=== PATIENT | female | born 1945 | race Caucasian/White ===

== ENCOUNTER 2017-11-12 05:47 | Inpatient (IN) | payer MEDICARE ==
[~2017-11-12] VITALS: Ht 157.5 cm; Wt 87.5 kg
[~2017-11-12 05:47] MED LIST: ASPI-516 CHEW; ATOR20TA15 PO; CALC1TAB12 PO; CART120C PO; COQ-100C5 PO; D 50CAP2 PO; FURO1TAB62 PO; GABA300C5 PO; GARL100T PO; HYDR-3516 PO; MILK500C2 PO; MULT1TAB46 PO; PANT40TA3 PO; TURM500C7
[2017-11-12] MEDS ORDERED: SODIUM CHLORID 0.9% 500 ML IV PRN (06:30)
[2017-11-12] MEDS ORDERED: METOPROLOL TARTRATE 25 MG TAB PO PRN (06:30)
[2017-11-12] MEDS ORDERED: POVIDONE IODINE 5% (ANTISEPSIS KIT) 4 APPLICATIONS EACH NARE PRN (06:30)
[2017-11-12] MEDS ORDERED: CHLORHEXIDINE GLUCONATE 2 % 1 PACK (2 CLOTHS) TOPICAL PRN (06:30)
[2017-11-12] MEDS ORDERED: LACTATED RINGER'S 1000 ML IV PRN (06:30)
[2017-11-12] MEDS ORDERED: GELFOAM SIZE 100 ONE ×2 (07:12→07:32)
[2017-11-12] MEDS ORDERED: GENTAMICIN SULFATE 80 MG/2 ML VIAL ONE (07:12)
[2017-11-12] MEDS ORDERED: LIDOCAINE 1%/EPINEPHrine 1:100,000 SOLN 50 ML VIAL ONE (07:12)
[2017-11-12] MEDS ORDERED: THROMBIN (TOPICAL) 5,000 UNIT VIAL ONE ×2 (07:12→10:05)
[2017-11-12] MEDS ORDERED: HEPARIN SODIUM - SQ 10,000 UNITS/ML VIAL ONE (07:18)
[2017-11-12] MEDS ORDERED: PROPOFOL 500 MG/50 ML INJ 100 ML ONE ×2 (07:37→15:00)
[2017-11-12] MEDS ORDERED: ACETAMINOPHEN 1000 MG/100 ML 100 ML IV ONE (07:37)
[2017-11-12] MEDS ORDERED: BUPIVACAINE LIPOSOME PF 1.3% 20 ML VIAL ONE (07:46)
[2017-11-12] MEDS ORDERED: BUPIVACAINE HCL PF 0.25% 30 ML VIAL ONE (07:49)
[2017-11-12] MEDS: ceFAZolin 1,000 MG/NS 100 ML IV SCH ×6 (08:08→16:00)
[2017-11-12] MEDS ORDERED: HYDROmorphone HCL PF 2 MG/ML VIAL ONE (08:09)
[2017-11-12] MEDS ORDERED: diphenhydrAMINE HCL 50 MG/ML VIAL ONE (08:12)
[2017-11-12] MEDS ORDERED: fentaNYL CITRATE 250 MCG/5 ML AMP ONE (08:14)
[2017-11-12] MEDS ORDERED: ARTIFICIAL TEARS OPTH OINT 3.5 APPLIC/3.5 GM TUBO ONE (08:45)
[2017-11-12] MEDS ORDERED: SODIUM CHLOR 0.9% 250 ML INJ 250 ML IV ONE (12:00)
[2017-11-12] MEDS ORDERED: PHENYLEPH/NS 1000 MCG/10 ML SYR IV ONE (12:00)
[2017-11-12] MEDS ORDERED: LACTATED RINGER'S 1000 ML INJ 1,000 ML IV ONE (12:00)
[2017-11-12] MEDS ORDERED: PHENYLEPHRINE HCL 10 MG/ML VIAL IV ONE (12:00)
[2017-11-12] MEDS ORDERED: ceFAZolin INJ 1,000 MG VIAL IV ONE (12:00)
[2017-11-12] MEDS ORDERED: GLYCOPYRROLATE 1 MG/5 ML SYRINGE IV PUSH ONE (12:00)
[2017-11-12] MEDS ORDERED: SODIUM CHLORID 0.9% 500 ML INJ 1,000 ML IV ONE (12:00)
[2017-11-12] MEDS ORDERED: ROCURONIUM INJ 50 MG/5 ML SYRINGE IV PUSH ONE (12:00)
[2017-11-12] MEDS ORDERED: ePHEDrine/NS 25 MG/5 ML SYRINGE IV ONE (12:00)
[2017-11-12] MEDS ORDERED: DEXAMETHASONE SOD PHOS 4 MG/ML VIAL IV ONE (12:00)
[2017-11-12] MEDS ORDERED: LIDOCAINE HCL 1% PF 5 ML SYRINGE OTHER ONE (12:00)
[2017-11-12] MEDS ORDERED: ONDANSETRON HCL 4 MG/2 ML VIAL IV ONE (12:00)
[2017-11-12] MEDS ORDERED: NORMOSOL R INJ 3,000 ML IV ONE (12:00)
[2017-11-12] MEDS ORDERED: PROPOFOL 200 MG/20 ML AMP IV ONE (12:00)
--- NOTE | 2017-11-12 13:14 | EKG ---
Date Performed: 11/12/2017 Time Performed: 06:34:40 PTAGE: 72 years EKG: Sinus rhythm NORMAL ECG PREVIOUS TRACING : 07/08/2015 12.10 Compared to prior tracing no significant change DOCTOR: Hany Butts Interpretating Date/Time 11/12/2017 13:12:49
[2017-11-12] MEDS ORDERED: BUPIVACAINE LIPOSOME PF 1.3% 20 ML VIAL INFIL ONE (17:26)
[2017-11-12] MEDS ORDERED: MEPERIDINE HCL 25 MG/ML VIAL ONE (19:35)
--- NOTE | 2017-11-12 19:59 | RADRPT ---
EXAM DATE/TIME: 11/12/2017 09:59 [place] COMPARISON: No previous studies available for comparison. INDICATIONS : T10-L2 fusion in the operating room. MEDICAL HISTORY : Non-responsive SURGICAL HISTORY : Non-responsive ENCOUNTER: Initial ACUITY: 1 day PAIN SCORE: Non-responsive. LOCATION: Bilateral thoracolumbar spine FINDINGS: 5 images were recorded digitally in the operating room using C-arm during placement of multilevel tra nspedicular screws. CONCLUSION: Intraoperative images. Jay Mariscal MD on November 12, 2017 at 19:56 Board Certified Radiologist. This report was verified electronically.
[2017-11-12] MEDS ORDERED: DO NOT ADM ANY ANTICOAGULANT DRUGS PRN (20:15)
[2017-11-12] MEDS ORDERED: *morphine SULFATE 8 MG/ML PERIprocedure ONLY ONE (20:18)
[2017-11-12] MEDS ORDERED: D5-1/2 NS + KCL 20 MEQ INJ 1,000 ML IV SCH (20:19)
[2017-11-12] MEDS ORDERED: NS + KCL 20 MEQ INJ 1,000 ML ONE (20:22)
[2017-11-12] MEDS ORDERED: HYDROmorphone HCL PCA 6 MG/30 ML IV ONE (20:23)
[2017-11-12] MEDS ORDERED: NALOXONE HCL 0.4 MG/ML AMP IV PUSH PRN ×2 (20:30)
[2017-11-12] MEDS ORDERED: ACETAMINOPHEN/HYDROcodone 325 MG/5 MG TAB PO PRN (20:30)
[2017-11-12] MEDS ORDERED: ONDANSETRON HCL 4 MG/2 ML VIAL IV PUSH PRN (20:30)
[2017-11-12] MEDS ORDERED: D5-NS + KCL 20 MEQ INJ 1,000 ML ONE (20:41)
[2017-11-12] MEDS: HYDROmorphone HCL PCA 6 MG/30 ML IV SCH (20:51)
[2017-11-12] MEDS ORDERED: PILL SPLITTER OTHER PRN (21:00)
[2017-11-12] MEDS: GABAPENTIN 300 MG CAP PO SCH (21:00)
[2017-11-12] MEDS: DILTIAZEM-CD 180 MG CAP ER PO SCH (21:00)
[2017-11-12] MEDS ORDERED: CALCIUM/VITAMIN D 250 MG/125 U TAB PO SCH (21:00)
[2017-11-12] MEDS: DOCUSATE SODIUM 100 MG CAP PO SCH (21:00)
[2017-11-12] MEDS: METHOCARBAMOL 500 MG TAB PO PRN (21:18)
--- NOTE | 2017-11-12 21:23 | PD.OP ---
Operative Report Date of Surgery: Nov 12, 2017 Preoperative Diagnosis: (1) Thoracic stenosis (2) Thoracic myelopathy (3) Lumbar degenerative disc disease 1. Severe T11-12 stenosis 2. Thoracic myelopathy 3. L1-2 adjacent level degeneration above previous L2-5 fusion 4. Thoracolumbar acquired sagittal deformity Postoperative Diagnosis: (1) Thoracic stenosis (2) Thoracic myelopathy (3) Lumbar degenerative disc disease 1. Severe T11-12 stenosis 2. Thoracic myelopathy 3. L1-2 adjacent level degeneration above previous L2-5 fusion 4. Thoracolumbar acquired sagittal deformity Procedure: 1. T11 12 decompressive laminectomy, medial facetectomy for spinal cord decompression 2. L1-2 bilateral decompressive semi-hemilaminectomy, Saenz-Guerrier osteotomy 3. L1-2 discectomy, interbody fusion,PEEK cage, lamina autograft bone, demineralized bone and stem cell matrix, cancellus bone chips. 4. Bilateral T10-L2 posterior lateral fusion with lamina autograft, demineralized bone and stem cell matrix, cancellus bone chips 5. Bilateral T10-L3 posterior spinal instrumentation, revision previous L2-3 instrumentation. Anesthesia: Gen. Surgeon: Nolan Francois Wheel Truer(s): Elizabeth Gagnon Operation and Findings: Indications: Severe T11-12 stenosis with signal intensity changes within the cord. L1-2 adjacent level degeneration with stenosis and upper lumbar pain. Acquired thoracolumbar sagittal deformity. This is stage I of a planned two-part procedure with the second stage planned at the L3-4 level for correction of thoracolumbar kyphotic deformity. Findings: Severe T11-12 stenosis with extensive epidural adhesions. L1-2 facet instability with severe degenerative disc disease above prior L2-5 fusion The patient was brought to the operating room and general endotracheal anesthesia induced without difficulty Lines were established per Anesthesia Sequential compression devices were in place The patient was positioned prone on the concentric Delio table with the side bolsters and all extremities appropriately padded Leads for intraoperative neuro monitoring were placed prior to positioning and a baseline study obtained Appropriate timeout procedure was performed with all personnel present and in agreement The thoracic and lumbar region was shaved with clippers and sterilely prepped and draped 1% Xylocaine with epinephrine was used for local infiltration over the incision site which was made at the midline T10-L3 level. The incision was carried sharply down to the thoracic and lumbodorsal fascia which was sharply incised Robbins elevator was used for subperiosteal elevation of paraspinous musculature and fascia away from the lamina and spinous processes of T10 through L2, and the existing rods that the bilateral L2-L3 level were exposed. The deep self-retaining retractor was placed The appropriate levels were verified with intraoperative C-arm The microscope was utilized during the procedure is needed including the T11- T12 and L1-2 decompression. The entry point for the pedicle screws at the bilateral T10-L1 levels were determined by anatomic and radiographic landmarks. The pedicle screw site was prepared with the awl followed by the pedicle finder and the tap. The ball tip probe was used to probe the pedicle screw site to ensure that there was no breakout through the pedicle. The appropriate size pedicle screw was placed at each pedicle screw site with 5.5 x 40 mm screws at the T11 and T12 levels, 4.5 x 35 mm screws at T10, and 4.5 x 40 and 45 mm screws at L1. The metal cutting bur was used to cut the existing hermila between the L3 and L4 pedicle screws. The previous hermila was a larger diameter than the new screws placed at the thoracic region, necessitating removal of the previous L2 and L3 pedicle screws in order to complete the construct. After the existing pedicle screws were removed, they were replaced with 6.5 and 5.5 x 45 mm screws at the L2 level, and I 0.5 x 45 mm screws at L3. Spine wave instrumentation was utilized. The screw placement was verified with intraoperative C-arm and intraoperative neural monitoring and felt to be satisfactory. The TPS drill with a 5 mm bone bur followed by the Kerrison rongeur was used to remove the inferior two thirds of the lamina at the T11 level and the superior third of the lamina at T12 level of the decompression. Hypertrophied ligamentum flavum was elevated away from the thecal sac and exiting nerve roots with the thin ligament dissector and resected with a 15 blade knife and Kerrison rongeur. There there was severe hypertrophy of the ligament and facet at the T11-12 level with severe canal stenosis and extensive adhesions along the thecal sac. The thecal sac and exiting nerve root were freed up from surrounding adhesions with the microdissectors and 15 blade knife and gently retracted medially revealing the underlying disc and annulus. There was no significant ventral compression noted on the thecal sac. Attention was then turned to the L1-2 level. There was significant facet instability noted was significant ligamentum hypertrophy. Due to the kyphotic deformity at the upper lumbar region, it is elected to perform a Saenz-Guerrier osteotomy to aid in achieving some lordosis at this region. The Leksell rongeur was used to remove the inferior aspect of the L1 lamina. The L2 lamina had been removed partially at the time of the previous procedure. Inferior half of the L1 and superior third of the L2 lamina was thinned out with the TPS drill and further removed with the Kerrison rongeur. Hypertrophied ligamentum flavum was elevated away from the thecal sac and resected with a 15 blade knife and Kerrison rongeur. The facet on each side was resected with the Leksell and Kerrison rongeur. The exiting L1 nerve roots were eliminated and preserved. There was moderate posterior osteophyte disc complex and pinching the ventral thecal sac and exiting L2 nerve roots. The thecal sac on the left side was gently retracted and the disc and annulus were incised. Discectomy was performed with the junito and pituitary biopsy forceps. The endplates were cleared of any disc material using the endplate scrapers. The rotating intervertebral spreaders were used to open up the anterior aspect of the disc space. Posterior osteophytic disc complex was impacted with thecal sac with the reverse curette and resected. The mixture of retained cancellus lamina autograft, demineralized bone and stem cell matrix and cancellous bone chips were placed using a funnel at the L1-2 interspace. The expanding 15 lordotic cage was then placed at the L1-2 level. It was planned to expand the lordotic cage up to 12-15 mm anterior height. However once the device was placed, further expansion could not be achieved. The cage was very snug in the interspace and it was elected to perform posterior compression against the existing cage height which was 8 mm anterior. The rods were bent to the appropriate curvature and placed along the T 10-L3 pedicle screws on each side. The reducers were used to obtain some lordosis against the L1-2 lordotic cage using compression across the L1-2 level and reduction against the curved rods. The patient's bone quality was marginal, and excessive reduction was avoided in order to avoid screw pullout. The locking caps were placed and final tightened using the antitorque device and torque wrench. The final construct was checked with intraoperative C-arm and felt to be satisfactory. The region was well irrigated with antibiotic irrigation The posterior lateral structures at the T10-L2 levels were decorticated with the TPS drill The shavings were left in place, to which was added the remaining autograft and allograft bone which was firmly packed in place for the posterior lateral fusion. The 7 mm flat fluted drain was left in place at the operative side and brought out through a incision at the mid thoracic region and secured to the skin with nylon suture and attached to sterile suction bleeding was carefully controlled with the bipolar forceps The closure was performed with 0 Vicryl interrupted for the deep and superficial fascia, with 3-0 Vicryl for the subcutaneous closure and 4-0 Vicryl running subcuticular closure. Dressings sterile Mastisol, Steri-Strips and Primapore was placed The patient was turned into supine position and taken to recovery room in stable condition All counts were correct at the end of the case Estimated blood loss was 400 cc No specimen was sent to pathology Neuro monitoring was stable during the procedure Nolan Francois MD Nov 12, 2017 21:23
[2017-11-12] MEDS: PCA - TOTAL MG DILAUDID DELIVERED PER SHIFT OTHER SCH (22:00)
[2017-11-12 22:49] LABS: AUTOMATED NEUTROPHIL # 8.3 TH/MM3 (1.8-7.7); BASOPHIL % 0.1 % (0.0-2.0); HEMATOCRIT 29.9 % (35.0-46.0); HEMOGLOBIN 9.9 GM/DL (11.6-15.3); LYMPH % 6.9 % (9.0-44.0); LYMPHOCYTE # 0.6 TH/MM3 (1.0-4.8); MEAN CORPUSCULAR HEMOGLOBIN 29.2 PG (27.0-34.0); MEAN CORPUSCULAR HGB CONC 33.2 % (32.0-36.0); MEAN PLATELET VOLUME 7.9 FL (7.0-11.0); MONO % 3.6 % (0.0-8.0); MONOCYTE # 0.3 TH/MM3 (0-0.9); NEUT % 89.4 % (16.0-70.0); PLATELET COUNT 270 TH/MM3 (150-450); RED CELL DISTRIBUTION WIDTH 16.8 % (11.6-17.2); WHITE BLOOD COUNT 9.3 TH/MM3 (4.0-11.0)
[2017-11-12 23:02] LABS: CALCIUM 7.9 MG/DL (8.5-10.1); CREATININE 1.73 MG/DL (0.50-1.00)
[2017-11-13] VITALS (18 sets, daily range): BP systolic 88–114; BP diastolic 51–63; PULSE 50–82; RESP 9–25; TEMP 97–98.3; O2SAT 88–97
[2017-11-13 05:50] LABS: INTERNATIONAL NORMALIZED RATIO 1.1 RATIO; PROTHROMBIN TIME - PATIENT 10.7 SEC (9.8-11.6)
[2017-11-13 05:51] LABS: AUTOMATED NEUTROPHIL # 6.4 TH/MM3 (1.8-7.7); HEMATOCRIT 26.7 % (35.0-46.0); HEMOGLOBIN 8.8 GM/DL (11.6-15.3); LYMPH % 9.8 % (9.0-44.0); LYMPHOCYTE # 0.8 TH/MM3 (1.0-4.8); MEAN CELL VOLUME 88.3 FL (80.0-100.0); MEAN CORPUSCULAR HEMOGLOBIN 29.2 PG (27.0-34.0); MEAN CORPUSCULAR HGB CONC 33.1 % (32.0-36.0); MEAN PLATELET VOLUME 8.5 FL (7.0-11.0); MONO % 7.5 % (0.0-8.0); MONOCYTE # 0.6 TH/MM3 (0-0.9); NEUT % 82.7 % (16.0-70.0); PLATELET COUNT 221 TH/MM3 (150-450); RED BLOOD COUNT 3.02 MIL/MM3 (4.00-5.30); RED CELL DISTRIBUTION WIDTH 16.9 % (11.6-17.2); WHITE BLOOD COUNT 7.8 TH/MM3 (4.0-11.0)
[2017-11-13] MEDS: PCA - TOTAL MG DILAUDID DELIVERED PER SHIFT OTHER SCH ×3 (06:00→22:00)
[2017-11-13] MEDS: KETOROLAC TROMETHAMINE 30 MG/ML (IVP) VIAL IV PUSH SCH ×3 (06:00→23:42)
[2017-11-13 06:09] LABS: BICARBONATE 25.8 MEQ/L (21.0-32.0); CALCIUM 7.9 MG/DL (8.5-10.1); CREATININE 2.03 MG/DL (0.50-1.00)
[2017-11-13] MEDS: PANTOPRAZOLE SOD 40 MG DELAYED RELEASE TAB PO SCH (08:10)
[2017-11-13] MEDS ORDERED: PANTOPRAZOLE SOD 40 MG DELAYED RELEASE TAB PO SCH (09:00)
[2017-11-13] MEDS ORDERED: NON-FORMULARY DRUG (Coenzyme Q10 (Ubidecarenone) (Coq-10 Tr) 1 CAP) PO SCH (09:00)
--- NOTE | 2017-11-13 09:35 | HHI.NSPN ---
(Horacio Rendon) History Chief Complaint: Hurting to the back. (Horacio Rendon) Interval History 11/12: The patient presented to [facility] for a T11-12 decompressive laminectomy, a L1-2 bilateral decompressive semi-hemilaminectomy with discectomy , interbody fusion and PEEK cage, and a bilateral T10-L2 posterior lateral fusion and posterior spinal instrumentation with revision of previous L2-3 instrumentation. Post-operatively she was admitted to the [facility]SC unit for further monitoring and care. 11/13: The patient is seen in rounds this morning with Dr Francois. She is awake and alert and visiting with her . She states that she is hurting to her back but her feet are less numb than they were. (Horacio Rendon) System Review Comments MUSCULOSKELETAL: Hurting to the back. NEUROLOGICAL: Feet are less numb. The undersigned acts as a scribe for the remainder of this note. (Horacio Rendon) Exam Results 11/11/17 11/11/17 11/12/17 11/12/17 11/13/17 11/13/17 06:00 18:00 06:00 18:00 06:00 18:00 Intake Total 6233 ml Output Total 2225 ml Balance 4008 ml Intake Oral 600 ml IV Total 850 ml Autotransfusion 783 ml Other 4000 ml Output Urine Total 1430 ml Stool Total 0 ml Drainage Total 395 ml Estimated Blood Loss 400 ml # Bowel Movements 0 Vital Signs Date Time Temp Pulse Resp B/P (MAP) Pulse Ox O2 Delivery O2 Flow Rate FiO2 11/13/17 08:18 94 Nasal Cannula 3.00 11/13/17 08:00 57 11/13/17 07:00 95 Nasal Cannula 2.00 11/13/17 06:00 97.8 58 10 88/52 (64) 93 11/13/17 06:00 58 11/13/17 05:00 97.8 70 25 112/56 (74) 94 11/13/17 04:00 64 11/13/17 04:00 97.6 64 25 100/51 (67) 94 11/13/17 03:00 97.0 57 10 108/55 (72) 95 11/13/17 02:00 52 11/13/17 02:00 97.3 52 9 112/56 (74) 94 11/13/17 01:00 97.2 50 9 106/59 (75) 94 11/13/17 00:24 96 Nasal Cannula 3.00 11/13/17 00:00 82 11/13/17 00:00 97.0 82 14 100/52 (68) 97 11/12/17 22:00 54 13 102/58 (73) 96 Nasal Cannula 3 11/12/17 21:00 55 11 96/52 (67) 96 Nasal Cannula 3 11/12/17 20:51 12 11/12/17 20:45 53 12 97/53 (68) 94 Nasal Cannula 3 11/12/17 20:30 54 12 95/55 (68) 94 Nasal Cannula 3 11/12/17 20:15 55 12 91/56 (68) 96 Nasal Cannula 3 11/12/17 20:00 54 11 104/55 (71) 96 Nasal Cannula 3 11/12/17 19:45 54 13 95/51 (66) 94 Nasal Cannula 3 11/12/17 19:35 98.2 54 11 159/54 (89) 96 Nasal Cannula 3 11/12/17 06:52 98.6 68 18 141/69 (93) 98 (Horacio Rendon) Physical Examination RESPIRATORY: CTAB. CARDIAC: S1S2 w/regular but slow rate w/o M/G/R. NEUROLOGICAL: Sensation intact to light touch in the upper extremities. Mild decreased sensation distal lower extremities & feet. Motor strength normal to all major flexion & extension muscle groups. (Horacio Rendon) Lab, Micro, Other Results Recent Impressions Thoracolumbar Spine 11/12/17 0000 Signed Impressions: Service Date/Time: Sunday, November 12, 2017 09:59 - CONCLUSION: Intraoperative images. Jay Mariscal MD Laboratory Tests Test 11/12/17 13:38 11/12/17 22:35 11/13/17 05:10 Blood Gas Puncture Site DRAWN IN OR Blood Gas Patient Temperature 98.6 Blood Gas HCO3 23 mmol/L Blood Gas Base Excess -0.6 mmol/L Blood Gas Oxygen Saturation 97 % Arterial Blood pH 7.46 Arterial Blood Partial Pressure CO2 33 mmHg Arterial Blood Partial Pressure O2 174 mmHg Arterial Blood Oxygen Content 13.9 Vol % Arterial Blood Carboxyhemoglobin 1.3 % Arterial Blood Methemoglobin 1.0 % Blood Gas Hemoglobin 9.9 G/DL Oxygen Delivery Device VENTILATOR Blood Gas Inspired Oxygen 60 % White Blood Count 9.3 TH/MM3 7.8 TH/MM3 Red Blood Count 3.40 MIL/MM3 3.02 MIL/MM3 Hemoglobin 9.9 GM/DL 8.8 GM/DL Hematocrit 29.9 % 26.7 % Mean Corpuscular Volume 88.0 FL 88.3 FL Mean Corpuscular Hemoglobin 29.2 PG 29.2 PG Mean Corpuscular Hemoglobin Concent 33.2 % 33.1 % Red Cell Distribution Width 16.8 % 16.9 % Platelet Count 270 TH/MM3 221 TH/MM3 Mean Platelet Volume 7.9 FL 8.5 FL Neutrophils (%) (Auto) 89.4 % 82.7 % Lymphocytes (%) (Auto) 6.9 % 9.8 % Monocytes (%) (Auto) 3.6 % 7.5 % Eosinophils (%) (Auto) 0.0 % 0.0 % Basophils (%) (Auto) 0.1 % 0.0 % Neutrophils # (Auto) 8.3 TH/MM3 6.4 TH/MM3 Lymphocytes # (Auto) 0.6 TH/MM3 0.8 TH/MM3 Monocytes # (Auto) 0.3 TH/MM3 0.6 TH/MM3 Eosinophils # (Auto) 0.0 TH/MM3 0.0 TH/MM3 Basophils # (Auto) 0.0 TH/MM3 0.0 TH/MM3 CBC Comment DIFF FINAL DIFF FINAL Differential Comment Blood Urea Nitrogen 31 MG/DL 36 MG/DL Creatinine 1.73 MG/DL 2.03 MG/DL Random Glucose 179 MG/DL 141 MG/DL Calcium Level 7.9 MG/DL 7.9 MG/DL Sodium Level 139 MEQ/L 139 MEQ/L Potassium Level 5.2 MEQ/L 4.9 MEQ/L Chloride Level 106 MEQ/L 105 MEQ/L Carbon Dioxide Level 26.0 MEQ/L 25.8 MEQ/L Anion Gap 7 MEQ/L 8 MEQ/L Estimat Glomerular Filtration Rate 29 ML/MIN 24 ML/MIN Prothrombin Time 10.7 SEC Prothromb Time International Ratio 1.1 RATIO Activated Partial Thromboplast Time 23.4 SEC (Horacio Rendon) Medical Decision Making Impression and Plan Impression: Preoperative Diagnosis: (1) Thoracic stenosis (2) Thoracic myelopathy (3) Lumbar degenerative disc disease 1. Severe T11-12 stenosis 2. Thoracic myelopathy 3. L1-2 adjacent level degeneration above previous L2-5 fusion 4. Thoracolumbar acquired sagittal deformity POD #1 () s/p: 1. T11 12 decompressive laminectomy, medial facetectomy for spinal cord decompression 2. L1-2 bilateral decompressive semi-hemilaminectomy, Saenz-Guerrier osteotomy 3. L1-2 discectomy, interbody fusion,PEEK cage, lamina autograft bone, demineralized bone and stem cell matrix, cancellus bone chips. 4. Bilateral T10-L2 posterior lateral fusion with lamina autograft, demineralized bone and stem cell matrix, cancellus bone chips 5. Bilateral T10-L3 posterior spinal instrumentation, revision previous L2-3 instrumentation. Postoperative Diagnosis: (1) Thoracic stenosis (2) Thoracic myelopathy (3) Lumbar degenerative disc disease 1. Severe T11-12 stenosis 2. Thoracic myelopathy 3. L1-2 adjacent level degeneration above previous L2-5 fusion 4. Thoracolumbar acquired sagittal deformity Plan: Frequent neuro checks. Mobilise patient w/assistance. TLSO brace when OOB. Keep patient off back. First time up in [facility] to ensure no complications. If patient does well plan to transfer to a regular med/surg floor. CBC & BMP this afternoon. Maintain Hi and monitor urine output. (Horacio Rendon) Attending Statement The exam, history, and the medical decision-making described in the above note were completed with the assistance of the mid-level provider. I reviewed and agree with the findings presented. I attest that I had a [id number] encounter with the patient on the same day, and personally performed and documented my assessment and findings in the medical record. My examination, impression and recommendations for my visit with the patient on 11/13/2017 are scribed as noted above. Presently no significant cardiorespiratory problems. BUN/creatinine are elevated with acute renal insufficiency. Continuing to monitor fluids and electrolytes as well as hemoglobin/hematocrit closely. Begin physical therapy with TLSO brace out of bed. Pain is recently well-controlled with present medications (Nolan Francois MD) Horacio Rendon Nov 13, 2017 09:35 Nolan Francois MD Nov 15, 2017 18:18
[2017-11-13] MEDS: CALCIUM/VITAMIN D 250 MG/125 U TAB PO SCH ×2 (09:48→21:25)
[2017-11-13] MEDS: FUROSEMIDE 20 MG TAB PO SCH (09:48)
[2017-11-13] MEDS: DOCUSATE SODIUM 100 MG CAP PO SCH ×2 (09:48→21:25)
[2017-11-13] MEDS: DILTIAZEM-CD 180 MG CAP ER PO SCH ×2 (09:48→21:25)
[2017-11-13] MEDS: MULTIVITAMINS/MINERALS THERAPEUTIC TAB PO SCH ×2 (09:48→21:25)
[2017-11-13] MEDS: GABAPENTIN 300 MG CAP PO SCH ×2 (09:48→21:25)
[2017-11-13] MEDS ORDERED: FUROSEMIDE 20 MG TAB PO ONE (10:00)
[2017-11-13] MEDS ORDERED: DEXTROSE 50% IN WATER 50 ML VIAL(D50) IV PUSH PRN (13:00)
[2017-11-13] MEDS: FUROSEMIDE 20 MG/2 ML VIAL IV PUSH SCH ×2 (13:00→18:09)
[2017-11-13] MEDS ORDERED: GLUCAGON 1 MG/ML VIAL OTHER PRN (13:00)
[2017-11-13 15:22] LABS: HEMATOCRIT 25.5 % (35.0-46.0); HEMOGLOBIN 8.4 GM/DL (11.6-15.3); MEAN CORPUSCULAR HEMOGLOBIN 29.1 PG (27.0-34.0); MEAN CORPUSCULAR HGB CONC 32.7 % (32.0-36.0); MEAN PLATELET VOLUME 8.6 FL (7.0-11.0); PLATELET COUNT 231 TH/MM3 (150-450); RED BLOOD COUNT 2.87 MIL/MM3 (4.00-5.30); RED CELL DISTRIBUTION WIDTH 16.9 % (11.6-17.2)
[2017-11-13 15:41] LABS: BICARBONATE 23.4 MEQ/L (21.0-32.0); CALCIUM 7.8 MG/DL (8.5-10.1); CREATININE 2.51 MG/DL (0.50-1.00)
[2017-11-13] MEDS: INSULIN NovoLIN REGULAR SUPPLEMENTAL SCALE SQ SCH ×2 (17:00→21:00)
[2017-11-13] MEDS: HYDROmorphone HCL PCA 6 MG/30 ML IV SCH (19:52)
[2017-11-13 20:26] LABS: HEMATOCRIT 23.9 % (35.0-46.0); HEMOGLOBIN 7.9 GM/DL (11.6-15.3); MEAN CELL VOLUME 88.5 FL (80.0-100.0); MEAN CORPUSCULAR HEMOGLOBIN 29.1 PG (27.0-34.0); MEAN CORPUSCULAR HGB CONC 32.9 % (32.0-36.0); MEAN PLATELET VOLUME 8.8 FL (7.0-11.0); PLATELET COUNT 215 TH/MM3 (150-450); RED CELL DISTRIBUTION WIDTH 17.1 % (11.6-17.2); WHITE BLOOD COUNT 9.3 TH/MM3 (4.0-11.0)
[2017-11-14] VITALS (16 sets, daily range): BP systolic 91–140; BP diastolic 50–68; PULSE 41–76; RESP 12–20; TEMP 97.1–98.4; O2SAT 93–98
[2017-11-14 06:31] LABS: BICARBONATE 25.4 MEQ/L (21.0-32.0); CALCIUM 7.9 MG/DL (8.5-10.1); CREATININE 2.37 MG/DL (0.50-1.00)
[2017-11-14] MEDS: KETOROLAC TROMETHAMINE 30 MG/ML (IVP) VIAL IV PUSH SCH (06:47)
[2017-11-14] MEDS: INSULIN NovoLIN REGULAR SUPPLEMENTAL SCALE SQ SCH ×4 (07:47→22:29)
[2017-11-14] MEDS ORDERED: FUROSEMIDE 20 MG/2 ML VIAL IV PUSH SCH (09:00)
[2017-11-14] MEDS: DILTIAZEM-CD 180 MG CAP ER PO SCH (09:00)
[2017-11-14] MEDS: FUROSEMIDE 20 MG TAB PO SCH (09:15)
[2017-11-14] MEDS: MULTIVITAMINS/MINERALS THERAPEUTIC TAB PO SCH ×2 (09:16→22:28)
[2017-11-14] MEDS: CALCIUM/VITAMIN D 250 MG/125 U TAB PO SCH ×2 (09:16→22:28)
[2017-11-14] MEDS: DOCUSATE SODIUM 100 MG CAP PO SCH ×2 (09:16→22:27)
[2017-11-14] MEDS: GABAPENTIN 300 MG CAP PO SCH ×2 (09:16→22:27)
[2017-11-14] MEDS: PANTOPRAZOLE SOD 40 MG DELAYED RELEASE TAB PO SCH (09:16)
--- NOTE | 2017-11-14 09:20 | HHI.NSPN ---
(Horacio Rendon) History Chief Complaint: Sore to the back. (Horacio Rendon) Interval History 11/12: The patient presented to [facility] for a T11-12 decompressive laminectomy, a L1-2 bilateral decompressive semi-hemilaminectomy with discectomy , interbody fusion and PEEK cage, and a bilateral T10-L2 posterior lateral fusion and posterior spinal instrumentation with revision of previous L2-3 instrumentation. Post-operatively she was admitted to the [facility]SC unit for further monitoring and care. 11/13: The patient is seen in rounds this morning with Dr Francois. She is awake and alert and visiting with her . She states that she is hurting to her back but her feet are less numb than they were. 11/14: This morning the patient is awake and alert when seen. She says she is doing good although she has soreness to her back. She denies any pain, numbness , tingling or weakness to the extremities but then qualifies that when examined and says the toes are still numb but better than before surgery. She remains on a COORDINATOR OF HEALTH SERVICES pump for pain control. She was given an extra dose of furosemide for decreased urine output and renal function. (Horacio Rendon) System Review Comments MUSCULOSKELETAL: Sore to the back. NEUROLOGICAL: Toes are still numb but better. (Horaico Rendon) Exam Results 11/12/17 11/12/17 11/13/17 11/13/17 11/14/17 11/14/17 06:00 18:00 06:00 18:00 06:00 18:00 Intake Total 6233 ml 2090 ml Output Total 2225 ml 360 ml Balance 4008 ml 1730 ml Intake Oral 600 ml 600 ml IV Total 850 ml 1490 ml Autotransfusion 783 ml Other 4000 ml Output Urine Total 1430 ml 200 ml Stool Total 0 ml Drainage Total 395 ml 160 ml Estimated Blood Loss 400 ml # Bowel Movements 0 0 Vital Signs Date Time Temp Pulse Resp B/P (MAP) Pulse Ox O2 Delivery O2 Flow Rate FiO2 11/14/17 06:00 52 11/14/17 04:00 97.7 74 18 95/50 (65) 98 11/14/17 04:00 74 11/14/17 02:54 97 11/14/17 02:00 58 11/14/17 00:00 56 11/14/17 00:00 97.6 56 20 97/52 (67) 94 11/13/17 22:00 18 11/13/17 22:00 56 11/13/17 20:00 97.7 58 18 103/53 (70) 88 11/13/17 20:00 94 Room Air 11/13/17 20:00 58 11/13/17 19:52 19 11/13/17 18:00 62 11/13/17 16:00 55 11/13/17 16:00 98.3 55 20 114/57 (76) 93 11/13/17 14:00 56 11/13/17 14:00 20 11/13/17 12:00 60 11/13/17 12:00 98.1 60 20 93/63 (73) 94 11/13/17 11:42 97 11/13/17 10:00 69 11/13/17 08:18 94 Nasal Cannula 3.00 11/13/17 08:00 97.7 58 17 93/63 (73) 95 11/13/17 08:00 57 11/13/17 07:00 95 Nasal Cannula 2.00 11/13/17 06:00 97.8 58 10 88/52 (64) 93 11/13/17 06:00 58 11/13/17 05:00 97.8 70 25 112/56 (74) 94 11/13/17 04:00 64 11/13/17 04:00 97.6 64 25 100/51 (67) 94 11/13/17 03:00 97.0 57 10 108/55 (72) 95 11/13/17 02:00 52 11/13/17 02:00 97.3 52 9 112/56 (74) 94 11/13/17 01:00 97.2 50 9 106/59 (75) 94 11/13/17 00:24 96 Nasal Cannula 3.00 11/13/17 00:00 82 11/13/17 00:00 97.0 82 14 100/52 (68) 97 11/12/17 22:00 54 13 102/58 (73) 96 Nasal Cannula 3 11/12/17 21:00 55 11 96/52 (67) 96 Nasal Cannula 3 11/12/17 20:51 12 11/12/17 20:45 53 12 97/53 (68) 94 Nasal Cannula 3 11/12/17 20:30 54 12 95/55 (68) 94 Nasal Cannula 3 11/12/17 20:15 55 12 91/56 (68) 96 Nasal Cannula 3 11/12/17 20:00 54 11 104/55 (71) 96 Nasal Cannula 3 11/12/17 19:45 54 13 95/51 (66) 94 Nasal Cannula 3 11/12/17 19:35 98.2 54 11 159/54 (89) 96 Nasal Cannula 3 11/12/17 06:52 98.6 68 18 141/69 (93) 98 (Horacio Rendon) Physical Examination GENERAL: Awake & alert in bed, readily interacts, normal affect, no apparent distress. MUSCULOSKELETAL: GARCES w/o difficulty. Extremities NTTP. Thoracolumbar spine mildly TTP. NEUROLOGICAL: AAOx3. Speech clear & appropriate. Follows simple commands w/o difficulty. Sensation to light touch decreased to the toes of both feet, o/w intact to light touch to all extremities. Motor strength 5/5 to all major flexion & extension muscle groups. (Horacio Rendon) Lab, Micro, Other Results Recent Impressions Thoracolumbar Spine 11/12/17 0000 Signed Impressions: Service Date/Time: Sunday, November 12, 2017 09:59 - CONCLUSION: Intraoperative images. Jay Mariscal MD Laboratory Tests Test 11/12/17 13:38 11/12/17 22:35 11/13/17 05:10 11/13/17 14:59 Blood Gas Puncture Site DRAWN IN OR Blood Gas Patient Temperature 98.6 Blood Gas HCO3 23 mmol/L Blood Gas Base Excess -0.6 mmol/L Blood Gas Oxygen Saturation 97 % Arterial Blood pH 7.46 Arterial Blood Partial Pressure CO2 33 mmHg Arterial Blood Partial Pressure O2 174 mmHg Arterial Blood Oxygen Content 13.9 Vol % Arterial Blood Carboxyhemoglobin 1.3 % Arterial Blood Methemoglobin 1.0 % Blood Gas Hemoglobin 9.9 G/DL Oxygen Delivery Device VENTILATOR Blood Gas Inspired Oxygen 60 % White Blood Count 9.3 TH/MM3 7.8 TH/MM3 11.0 TH/MM3 Red Blood Count 3.40 MIL/MM3 3.02 MIL/MM3 2.87 MIL/MM3 Hemoglobin 9.9 GM/DL 8.8 GM/DL 8.4 GM/DL Hematocrit 29.9 % 26.7 % 25.5 % Mean Corpuscular Volume 88.0 FL 88.3 FL 89.0 FL Mean Corpuscular Hemoglobin 29.2 PG 29.2 PG 29.1 PG Mean Corpuscular Hemoglobin Concent 33.2 % 33.1 % 32.7 % Red Cell Distribution Width 16.8 % 16.9 % 16.9 % Platelet Count 270 TH/MM3 221 TH/MM3 231 TH/MM3 Mean Platelet Volume 7.9 FL 8.5 FL 8.6 FL Neutrophils (%) (Auto) 89.4 % 82.7 % Lymphocytes (%) (Auto) 6.9 % 9.8 % Monocytes (%) (Auto) 3.6 % 7.5 % Eosinophils (%) (Auto) 0.0 % 0.0 % Basophils (%) (Auto) 0.1 % 0.0 % Neutrophils # (Auto) 8.3 TH/MM3 6.4 TH/MM3 Lymphocytes # (Auto) 0.6 TH/MM3 0.8 TH/MM3 Monocytes # (Auto) 0.3 TH/MM3 0.6 TH/MM3 Eosinophils # (Auto) 0.0 TH/MM3 0.0 TH/MM3 Basophils # (Auto) 0.0 TH/MM3 0.0 TH/MM3 CBC Comment DIFF FINAL DIFF FINAL Differential Comment Blood Urea Nitrogen 31 MG/DL 36 MG/DL 43 MG/DL Creatinine 1.73 MG/DL 2.03 MG/DL 2.51 MG/DL Random Glucose 179 MG/DL 141 MG/DL 126 MG/DL Calcium Level 7.9 MG/DL 7.9 MG/DL 7.8 MG/DL Sodium Level 139 MEQ/L 139 MEQ/L 135 MEQ/L Potassium Level 5.2 MEQ/L 4.9 MEQ/L 5.0 MEQ/L Chloride Level 106 MEQ/L 105 MEQ/L 103 MEQ/L Carbon Dioxide Level 26.0 MEQ/L 25.8 MEQ/L 23.4 MEQ/L Anion Gap 7 MEQ/L 8 MEQ/L 9 MEQ/L Estimat Glomerular Filtration Rate 29 ML/MIN 24 ML/MIN 19 ML/MIN Prothrombin Time 10.7 SEC Prothromb Time International Ratio 1.1 RATIO Activated Partial Thromboplast Time 23.4 SEC Test 11/13/17 19:17 11/14/17 03:48 White Blood Count 9.3 TH/MM3 Red Blood Count 2.70 MIL/MM3 Hemoglobin 7.9 GM/DL Hematocrit 23.9 % Mean Corpuscular Volume 88.5 FL Mean Corpuscular Hemoglobin 29.1 PG Mean Corpuscular Hemoglobin Concent 32.9 % Red Cell Distribution Width 17.1 % Platelet Count 215 TH/MM3 Mean Platelet Volume 8.8 FL Blood Urea Nitrogen 45 MG/DL Creatinine 2.37 MG/DL Random Glucose 93 MG/DL Calcium Level 7.9 MG/DL Sodium Level 134 MEQ/L Potassium Level 4.3 MEQ/L Chloride Level 101 MEQ/L Carbon Dioxide Level 25.4 MEQ/L Anion Gap 8 MEQ/L Estimat Glomerular Filtration Rate 20 ML/MIN (Horacio Rendon) Medical Decision Making Impression and Plan Impression: Preoperative Diagnosis: (1) Thoracic stenosis (2) Thoracic myelopathy (3) Lumbar degenerative disc disease 1. Severe T11-12 stenosis 2. Thoracic myelopathy 3. L1-2 adjacent level degeneration above previous L2-5 fusion 4. Thoracolumbar acquired sagittal deformity The patient is doing well when seen. Her pain is fairly well controlled. Her myelopathy is improved from before surgery. Reviewed labs for today. Haemoglobin continues to trend down. Mild hyponatremia. Decreased renal function. FRED drain with 160 mL output for the past 24 hours. POD #2 () s/p: 1. T11 12 decompressive laminectomy, medial facetectomy for spinal cord decompression 2. L1-2 bilateral decompressive semi-hemilaminectomy, Saenz-Guerrier osteotomy 3. L1-2 discectomy, interbody fusion,PEEK cage, lamina autograft bone, demineralized bone and stem cell matrix, cancellus bone chips. 4. Bilateral T10-L2 posterior lateral fusion with lamina autograft, demineralized bone and stem cell matrix, cancellus bone chips 5. Bilateral T10-L3 posterior spinal instrumentation, revision previous L2-3 instrumentation. Postoperative Diagnosis: (1) Thoracic stenosis (2) Thoracic myelopathy (3) Lumbar degenerative disc disease 1. Severe T11-12 stenosis 2. Thoracic myelopathy 3. L1-2 adjacent level degeneration above previous L2-5 fusion 4. Thoracolumbar acquired sagittal deformity Plan: Frequent neuro checks. Mobilise patient w/assistance. TLSO brace when OOB. Keep patient off back. Maintain Hi and monitor urine output. Hospitalist consult for medical management. CBC at 1600. ADDENDUM at 1036: Nursing reported that the patient's SBP dropped into the 70s after the patient pushed the CO[employer]ATOR OF HEALTH SERVICES hydromorphone. It was also low manually. The patient was awake and alert per Nursing. When seen the aptient stated that she felt tired. Nursing did have the dressing off the surgical incision due to the amount of drainage on it. She stated that when the patient coughed there would be blood oozing from the mid to lower incision. The dressing was changed approximately 3 hours previously. Nursing reports that one reading will be in the 70s and the next will be in the 110s. SBP 76 mm Hg by automated cuff and 78 mm Hg manually. Will give patient a bolus of 500 mL NS. Nursing does say that the patient also received furosemide 20 mg IV earlier. She has held the patient's diltiazem. Will notify Dr Francois. BET ADDENDUM at 1106: Notified by Nursing that the patient's sats have dropped into the 80s while on the nasal cannula. Respiratory notified and flow to 4L NC. When seen the patient is with mild to moderate respiratory effort. She is diminished bilaterally with scattered intermittent wheezing. Will do stat CXR and give Duoneb treatment. Will also obtain CBC, BMP, PT/INR & aPTT stat. Spoke with Metal Furniture Panel Coverer and will place consult. BET ADDENDUM at 1215: Reviewed stat CXR which demonstrated left lower lobe infiltrate. Spoke with Metal Furniture Panel Coverer who has evaluated patient and initiated treatment for pneumonia. Lab results pending. Will defer medical issues to the Metal Furniture Panel Coverer and continue to follow patient in regards to her surgery. MARGARITA (Horacio Rendon) Attending Statement The exam, history, and the medical decision-making described in the above note were completed with the assistance of the mid-level provider. I reviewed and agree with the findings presented. I attest that I had a [id number] encounter with the patient on the same day, and personally performed and documented my assessment and findings in the medical record. Examination: 14/01/17, patient with intermittent decreased dose to saturation, somewhat labored respirations. Fluctuating blood pressure. Laboratory results reviewed Metal Furniture Panel Coverer consultation obtained with probable pneumonia. Mild, improving postoperative renal insufficiency. Continuing intensive care and checks and vital signs with close monitoring of fluids. Solu-Medrol and Zosyn started by code and test clerk for pneumonia. (Nolan Francois MD) Horacio Rendon Nov 14, 2017 09:20 Nolan Francois MD Nov 15, 2017 18:21
[2017-11-14] MEDS: POTASSIUM CHLORIDE INJ 10 MEQ in SODIUM CHLOR 0.9% 1000 ML INJ 1,000 ML IV SCH (09:24)
[2017-11-14] MEDS ORDERED: SODIUM CHLORID 0.9% 500 ML INJ 500 ML IV STA (10:50)
[2017-11-14] MEDS ORDERED: RESP: ALBUTEROL 2.5 MG/IPRATROPIUM 0.5 MG NEB (SCH) NEB ONE (11:30)
--- NOTE | 2017-11-14 11:30 | RADRPT ---
EXAM DATE/TIME: 11/14/2017 11:17 [place] COMPARISON: No previous studies available for comparison. INDICATIONS : Dyspnea MEDICAL HISTORY : None. SURGICAL HISTORY : None. ENCOUNTER: Initial ACUITY: 3 days PAIN SCORE: Non-responsive. LOCATION: Bilateral chest FINDINGS: A single view of the chest demonstrates the lungs to be symmetrically aerated except for an elevated right hemidiaphragm. There is some asymmetry with some infiltrate left lung base could be small area of pneumonia. Patient's had previous thoracic spine fixation. Upper lungs are clear. No pneumothorax. The cardiomediastinal contours are unremarkable. Osseous structures are intact. CONCLUSION: Question of small infiltrate left lung base. Tenzin Walters MD on November 14, 2017 at 11:28 Board Certified Radiologist. This report was verified electronically.
[2017-11-14] MEDS ORDERED: RESP: ALBUTEROL 2.5 MG/IPRATROPIUM 0.5 MG NEB (PRN) NEB (12:00)
[2017-11-14] MEDS ORDERED: PHENYLEPHRINE INJ 40 MG in DEXTROSE 5% IN WATE 500 ML INJ 496 ML IV PRN ×2 (12:00)
[2017-11-14] MEDS ORDERED: TERBUTALINE INJ 1 MG/ML AMP SQ PRN ×2 (12:00→13:00)
[2017-11-14] MEDS: RESP: ALBUTEROL 2.5 MG/IPRATROPIUM 0.5 MG NEB (SCH) NEB ×3 (12:10→21:15)
--- NOTE | 2017-11-14 12:13 | PD.CONS ---
[facility] Service Critical Care Medicine Consult Requested By Dr. Francois Reason for Consult Hypotension Acute hypoxemic respiratory failure Acute COPD exacerbation LLL infiltrate/Probable HCAP Anemia requiring transfusion Atrial fibrillation with slow ventricular rate s/p T11-T12 laminectomy, T10-L2 fusion, and instrumentation Primary Care Physician Toribio Blevins MD History of Present Illness Patient is a 72-year-old female with past medical history significant for COPD, chronic kidney disease, atrial fibrillation, severe spinal stenosis was admitted to Dr. Francois's service and underwent T11-12 decompressive laminectomy, a L1-2 bilateral decompressive semi-hemilaminectomy with discectomy , interbody fusion and PEEK cage, and a bilateral T10-L2 posterior lateral fusion and posterior spinal instrumentation with revision of previous L2-3 instrumentation. Post-operatively she was admitted to the [facility]. Today a.m. patient was found to be hypotensive systolic blood pressure in the 70s. Patient was given 500 mL normal saline bolus apparently resulted in hypoxemia and shortness of breath. Oxygen saturation decreased to 83-85%. Oxygen by nasal cannula was increased to 6 L, and fluid bolus was discontinued. Critical care medicine was consulted for hypotension and hypoxemia. A stat chest x-ray shows new left lower lobe infiltrate I evaluated the patient in the [facility]. Patient is dyspneic, hypotensive, in moderate distress. She is able to talk. Patient is bradycardic in slow A. fib. History of A. fib ablation by Dr. Skinner in the past. I will discontinue IV fluids and start on Dopamine to maintain map above 65, HR >50. Start IV Solu- Medrol 60 mg every 8 hours and DuoNeb scheduled and when necessary for COPD exacerbation. Also started on Zosyn renally dosed for probable healthcare associated pneumonia. Panculture, lactic acid and ABG ordered. Use BiPAP as needed. Hemoglobin came back 7 on 11/12/17 it was 9.9. Transfuse 2 units of PRBC Review of Systems ROS Limitations: Clinical Condition, Other (limited due to SOB) Past Family Social History Allergies: Coded Allergies: adhesive (Unverified Allergy, Severe, Itching, 11/12/17) MILD REACTION Past Medical History COPD Peripheral arterial disease Coronary artery disease Atrial fibrillation status post ablation Hypertension Dyslipidemia Chronic kidney disease Spinal stenosis GERD Past Surgical History Hysterectomy Left hip replacement Bilateral knee arthroscopy Atrial fibrillation ablation Reported Medications Lipitor Cardizem Aspirin Hydrocodone when necessary Gabapentin Calcium Protonix Multivitamin Lasix Active Ordered Medications Reviewed Family History Noncontributory Social History Quit smoking about 5 years ago, used to smoke a pack a day for several years Physical Exam Vital Signs Vital Signs Date Time Temp Pulse Resp B/P (MAP) Pulse Ox O2 Delivery O2 Flow Rate FiO2 11/14/17 11:41 93 Nasal Cannula 6.00 11/14/17 08:00 64 11/14/17 06:00 52 11/14/17 04:00 97.7 74 18 95/50 (65) 98 11/14/17 04:00 74 11/14/17 02:54 97 11/14/17 02:00 58 11/14/17 00:00 56 11/14/17 00:00 97.6 56 20 97/52 (67) 94 11/13/17 22:00 18 11/13/17 22:00 56 11/13/17 20:00 97.7 58 18 103/53 (70) 88 11/13/17 20:00 94 Room Air 11/13/17 20:00 58 11/13/17 19:52 19 11/13/17 18:00 62 11/13/17 16:00 55 11/13/17 16:00 98.3 55 20 114/57 (76) 93 11/13/17 14:00 56 11/13/17 14:00 20 Physical Exam GEN: 72-year-old female in moderate distress due to dyspnea HEAD: Atraumatic. Normocephalic NECK: Supple. Thyroid not enlarged, no neck masses. LUNGS: Air entry equal bilaterally, bilateral mild expiratory wheezing HEART: Irregular, bradycardic, rhythm appears slow A. fib ABDOMEN: Soft, nontender no organomegaly MSK: Surgical dressing on the back intact single drain with serosanguineous drainage EXTREMITIES: Warm and well-perfused. No edema. NEUROLOGIC: Alert awake oriented no focal deficits Laboratory Laboratory Tests Test 11/13/17 14:59 11/13/17 19:17 11/14/17 03:48 White Blood Count 11.0 9.3 Red Blood Count 2.87 2.70 Hemoglobin 8.4 7.9 Hematocrit 25.5 23.9 Mean Corpuscular Volume 89.0 88.5 Mean Corpuscular Hemoglobin 29.1 29.1 Mean Corpuscular Hemoglobin Concent 32.7 32.9 Red Cell Distribution Width 16.9 17.1 Platelet Count 231 215 Mean Platelet Volume 8.6 8.8 Blood Urea Nitrogen 43 45 Creatinine 2.51 2.37 Random Glucose 126 93 Calcium Level 7.8 7.9 Sodium Level 135 134 Potassium Level 5.0 4.3 Chloride Level 103 101 Carbon Dioxide Level 23.4 25.4 Anion Gap 9 8 Estimat Glomerular Filtration Rate 19 20 Result Diagram: 11/13/17 1917 11/14/17 0348 Imaging Reviewed Septic Shock Reassessment Septic shock perfusion: reassessment completed Assessment and Plan Assessment and Plan ASSESSMENT: Hypotension Acute hypoxemic respiratory failure Acute COPD exacerbation LLL infiltrate/Probable HCAP Anemia requiring transfusion Atrial fibrillation with slow ventricular rate s/p T11-T12 laminectomy, T10-L2 fusion, and instrumentation History of coronary artery disease History of A. fib status post ablation Peripheral arterial disease Hypertension Dyslipidemia PLAN: NEURO: - Discontinue CERTIFIED MEDICAL TECHNICIAN ASSISTANT pump due to hypotension - Use as needed IV morphine for pain control RESP: - Nasal cannula oxygen, titrated to keep oxygen saturation more than 90% - IV Solu Medrol 60 mg every 8 hours - DuoNeb every 6 hours scheduled and when necessary, EzPAP - Broad-spectrum antibiotics with Zosyn - BiPAP if not improving CV: - Received normal saline for normal bolus but patient became short of breath and this was discontinued - Discontinue IV Lasix due to worsening renal function - Use dopamine to keep map above 65 and to improve bradycardia - Cardiology consult regarding slow A. fib, with hypotension - Hold all antihypertensives and aspirin GI: - Heart healthy diet once stable : - Monitor renal function closely. Hi catheter. - Patient has chronic kidney disease most likely worsened by ATN. Nephrology consulted ID: - Chest x-ray shows left lower lobe infiltrate, start on empiric Zosyn - Follow up on chiu culture HEME: - Monitor CBC, CMP - 2U PRBC Stat for Hb 7 with hypotension ENDO: - Electrolyte replacement as needed PROPH: - Bilateral lower extremity SCDs/LATONYA. Avoid chemical DVT prophylaxis due to back surgery surgery, and anemia LINES: - Utilize peripheral IVs, central line if needed for pressors CC time 42 min Perri Rodriguez MD Nov 14, 2017 12:13
[2017-11-14 12:15] LABS: AUTOMATED NEUTROPHIL # 4.7 TH/MM3 (1.8-7.7); BASOPHIL % 0.2 % (0.0-2.0); EOSINOPHIL % 0.4 % (0.0-4.0); HEMATOCRIT 21.3 % (35.0-46.0); LYMPHOCYTE # 1.1 TH/MM3 (1.0-4.8); MEAN CELL VOLUME 88.8 FL (80.0-100.0); MEAN CORPUSCULAR HEMOGLOBIN 29.2 PG (27.0-34.0); MEAN CORPUSCULAR HGB CONC 32.9 % (32.0-36.0); MEAN PLATELET VOLUME 8.4 FL (7.0-11.0); MONO % 7.3 % (0.0-8.0); MONOCYTE # 0.5 TH/MM3 (0-0.9); NEUT % 74.1 % (16.0-70.0); PLATELET COUNT 176 TH/MM3 (150-450); RED BLOOD COUNT 2.39 MIL/MM3 (4.00-5.30); RED CELL DISTRIBUTION WIDTH 16.7 % (11.6-17.2); WHITE BLOOD COUNT 6.3 TH/MM3 (4.0-11.0)
[2017-11-14 12:21] LABS: PROTHROMBIN TIME - PATIENT 10.5 SEC (9.8-11.6)
[2017-11-14 12:40] LABS: BICARBONATE 25.5 MEQ/L (21.0-32.0); CALCIUM 7.4 MG/DL (8.5-10.1); CREATININE 2.21 MG/DL (0.50-1.00)
[2017-11-14] MEDS ORDERED: FUROSEMIDE 40 MG/4 ML VIAL IV PUSH ONE (12:45)
[2017-11-14] MEDS ORDERED: DOPamine INJ PREMIX 500 ML IV PRN (13:00)
[2017-11-14 13:02] LABS: CALCIUM-PROTEIN CORRECTED 8.2 MG/DL (8.5-10.1); TOTAL PROTEIN 5.7 GM/DL (6.4-8.2)
--- NOTE | 2017-11-14 13:43 | PD.CONS ---
HPI Service Nephrology Consult Requested By Reason for Consult Acute on CKD Primary Care Physician Toribio Blevins MD History of Present Illness This is a very pleasant 72 y/o female patient. She was admitted following scheduled surgery for spinal stenosis by Dr. Francois. She underwent T11- 12 decompressive laminectomy, a L1-2 bilateral decompressive semi- hemilaminectomy with discectomy, interbody fusion and PEEK cage, and a bilateral T10-L2 posterior lateral fusion and posterior spinal instrumentation with revision of previous L2-3 instrumentation. PMH of COPD, A fib, obesity, and CKD 3. Her PCP just referred her to a senior software engineer analytics for which she has not made the appointment. Her baseline creatinine is 1.6, GFR 31, From last month. On admission her creatinine was 1.7, increased to 2.51 at its highest, and is 2.21 today. Overnight on the she became hypotensive and she developed A fib with SVR. She has not responded to fluids, blood pressure is 80s/40s during my exam. A mccray is in place, she is non oliguric. Two doses of Toradol were given yesterday and again today. Chest xray shows LLL infiltrate for which she is on Zosyn. We were consulted to assist with management. (Aria Orneals) Review of Systems Constitutional: COMPLAINS OF: Fatigue Musculoskeletal: COMPLAINS OF: Muscle aches, Stiffness, Back pain, Neck pain ( Aria Ornelas) Past Family Social History Allergies: Coded Allergies: adhesive (Unverified Allergy, Severe, Itching, 11/12/17) MILD REACTION Past Medical History CKD 3, Baseline creatinine 1.7, GFR 31 COPD Former smoking Spinal stenosis Obesity Past Surgical History None Reported Medications She cannot list the names of her home medications Active Ordered Medications Current Medications Medications (Trade) Dose Ordered Sig/Reynaldo Route Start Time Stop Time Status Last Admin (Colace) 100 mg BID PO 11/12/17 21:00 11/14/17 09:16 (Zofran Inj) 4 mg Q6H PRN IV PUSH 11/12/17 20:30 (Narcan Inj) 0.4 mg UNSCH PRN IV PUSH 11/12/17 20:30 Future Hold (Dilaudid COVERED BUTTON MAKER Inj) 6 mg UNSCH IV 11/12/17 20:30 Future Hold 11/13/17 19:52 COVERED BUTTON MAKER Dosage Infused (Pha) 1 Q8HR OTHER 11/12/17 22:00 Future Hold 11/13/17 22:00 ([place] 5-325 Mg) 1 tab Q4H PRN PO 11/12/17 20:30 ([place] 10-325 Mg) 1 tab Q4H PRN PO 11/12/17 20:30 (Narcan Inj) 0.4 mg UNSCH PRN IV PUSH 11/12/17 20:30 (Robaxin) 500 mg Q8H PRN PO 11/12/17 20:30 11/12/17 21:18 (Cardizem Cd) 180 mg BID PO 11/12/17 21:00 Future Hold 11/13/17 21:25 (Neurontin) 300 mg BID PO 11/12/17 21:00 11/14/17 09:16 (Protonix) 40 mg DAILY PO 11/13/17 09:00 11/14/17 09:16 (Theragran M Tab) 0.5 tab BID PO 11/13/17 09:00 11/14/17 09:16 (Pill Splitter) 1 ea UNSCH PRN OTHER 11/12/17 21:00 (Oscal-D 250-125) 125 mg BID PO 11/13/17 09:00 11/14/17 09:16 (D50w (Vial) Inj) 50 ml UNSCH PRN IV PUSH 11/13/17 13:00 (Glucagon Inj) 1 mg UNSCH PRN OTHER 11/13/17 13:00 (NovoLIN R SUPPLEMENTAL SCALE) 1 ACHS SLIDING SCALE SQ 11/13/17 17:00 Potassium Chloride 10 meq/ Sodium Chloride 1,005 ml @ 84 mls/hr [id number] IV 11/14/17 10:00 11/14/17 09:24 Phenylephrine HCl 40 mg/Dextrose 500 ml @ 30 mls/hr TITRATE PRN IV 11/14/17 12:00 (Brethine Inj) 1 mg UNSCH PRN SQ 11/14/17 12:00 (Duoneb Neb) 1 ampule Q6HR NEB NEB 11/14/17 13:00 (Duoneb Neb) 1 ampule Q2HR NEB PRN NEB 11/14/17 12:00 (SoluMEDROL INJ) 60 mg Q8HR IV PUSH 11/14/17 12:00 Piperacillin Sod/ Tazobactam Sod 50 ml @ 100 mls/hr Q8H IV 11/14/17 13:00 Dopamine HCl/ Dextrose 500 ml @ 5.158 mls/ hr TITRATE PRN IV 11/14/17 13:00 (Brethine Inj) 1 mg UNSCH PRN SQ 11/14/17 13:00 Family History Non contributory Social History Former smoker Lives locally Independent She is Retired Full code (Aria Ornelas) Physical Exam Vital Signs Vital Signs Date Time Temp Pulse Resp B/P (MAP) Pulse Ox O2 Delivery O2 Flow Rate FiO2 11/14/17 12:00 48 11/14/17 12:00 98.4 56 15 93/54 (67) 94 11/14/17 11:41 93 Nasal Cannula 6.00 11/14/17 10:00 51 11/14/17 08:00 98.1 54 16 91/50 (64) 97 11/14/17 08:00 64 11/14/17 07:00 97 Nasal Cannula 2.00 11/14/17 06:00 52 11/14/17 04:00 97.7 74 18 95/50 (65) 98 11/14/17 04:00 74 11/14/17 02:54 97 11/14/17 02:00 58 11/14/17 00:00 56 11/14/17 00:00 97.6 56 20 97/52 (67) 94 11/13/17 22:00 18 11/13/17 22:00 56 11/13/17 20:00 97.7 58 18 103/53 (70) 88 11/13/17 20:00 94 Room Air 11/13/17 20:00 58 11/13/17 19:52 19 11/13/17 18:00 62 11/13/17 16:00 55 11/13/17 16:00 98.3 55 20 114/57 (76) 93 11/13/17 14:00 56 11/13/17 14:00 20 Physical Exam HEAD: Atraumatic. Normocephalic NECK: Supple. Thyroid not enlarged, no neck masses. No JVD. LUNGS: CTAB bilaterally without wheezing, coughing, or other adventitious sounds. Normal strong cough. HEART: Quiet precordium, S1/S2, irreg irregular, aldo in 50s, no murmur or rub. ABDOMEN: Obese, Soft, NT/ND. BS x 4 normal. No guarding. EXTREMITIES: Warm and well-perfused. No edema noted. SKIN: Clear. Trace edema in the feet. Drain mid back (FRED) NEUROLOGIC: Motor and sensory is grossly intact. PERRLA. Follows commands. Laboratory Laboratory Tests Test 11/13/17 14:59 11/13/17 19:17 11/14/17 03:48 11/14/17 11:56 White Blood Count 11.0 9.3 6.3 Red Blood Count 2.87 2.70 2.39 Hemoglobin 8.4 7.9 7.0 Hematocrit 25.5 23.9 21.3 Mean Corpuscular Volume 89.0 88.5 88.8 Mean Corpuscular Hemoglobin 29.1 29.1 29.2 Mean Corpuscular Hemoglobin Concent 32.7 32.9 32.9 Red Cell Distribution Width 16.9 17.1 16.7 Platelet Count 231 215 176 Mean Platelet Volume 8.6 8.8 8.4 Blood Urea Nitrogen 43 45 45 Creatinine 2.51 2.37 2.21 Random Glucose 126 93 117 Calcium Level 7.8 7.9 7.4 Sodium Level 135 134 135 Potassium Level 5.0 4.3 3.9 Chloride Level 103 101 101 Carbon Dioxide Level 23.4 25.4 25.5 Anion Gap 9 8 9 Estimat Glomerular Filtration Rate 19 20 22 Neutrophils (%) (Auto) 74.1 Lymphocytes (%) (Auto) 18.0 Monocytes (%) (Auto) 7.3 Eosinophils (%) (Auto) 0.4 Basophils (%) (Auto) 0.2 Neutrophils # (Auto) 4.7 Lymphocytes # (Auto) 1.1 Monocytes # (Auto) 0.5 Eosinophils # (Auto) 0.0 Basophils # (Auto) 0.0 CBC Comment DIFF FINAL Differential Comment Prothrombin Time 10.5 Prothromb Time International Ratio 1.0 Activated Partial Thromboplast Time 24.3 Total Protein 5.7 Protein Corrected Calcium 8.2 Test 11/14/17 12:30 Blood Gas Puncture Site RT BRACHIAL Blood Gas Patient Temperature 98.6 Blood Gas HCO3 22 Blood Gas Base Excess -3.0 Blood Gas Oxygen Saturation 91 Arterial Blood pH 7.33 Arterial Blood Partial Pressure CO2 43 Arterial Blood Partial Pressure O2 71 Arterial Blood Oxygen Content 9.1 Arterial Blood Carboxyhemoglobin 1.5 Arterial Blood Methemoglobin 0.9 Blood Gas Hemoglobin 7.0 Oxygen Delivery Device NASAL CANNULA Blood Gas Liter Flow 6 (Aria Ornelas) Result Diagram: 11/14/17 1156 11/14/17 1156 Imaging Last 72 hours Impressions Chest X-Ray 11/14/17 0000 Signed Impressions: Service Date/Time: October 11:17 - CONCLUSION: Question of small infiltrate left lung base. Tenzin Walters MD Thoracolumbar Spine 11/12/17 0000 Signed Impressions: Service Date/Time: Sunday, November 12, 2017 09:59 - CONCLUSION: Intraoperative images. Jay Mariscal MD (Aria Ornelas) Assessment and Plan Problem List: (1) Acute kidney injury superimposed on CKD ICD Codes: N17.9 - Acute kidney failure, unspecified; N18.9 - Chronic kidney disease, unspecified Plan: TREVOR on CKD 3, Baseline creatinine 1.7 TREVOR most likely due to renal hypoperfusion resulting from hypotension and also bradycardia. She was also given multiple doses of NSAIDS. Her renal function is improving Has mccray, currently non oliguric, leave in place for now given mobility issues Obtain Renal US Obtain UA, repeat labs in AM Avoid nephrotoxic agents She was started on Dopamine, maintain MAP > 65mmHg. (2) Anemia ICD Codes: D64.9 - Anemia, unspecified Plan: 400 ml EBL during surgery 2 units ordered for today (3) Thoracic stenosis ICD Codes: M48.04 - Spinal stenosis, thoracic region Plan: Neurosurgery following Pain control, PT/OT Follow neurovascular status (Aria Ornelas) Problem List: (1) Acute kidney injury superimposed on CKD ICD Codes: N17.9 - Acute kidney failure, unspecified; N18.9 - Chronic kidney disease, unspecified Plan: TREVOR on CKD 3, Baseline creatinine 1.7 TREVOR most likely due to renal hypoperfusion resulting from hypotension and also bradycardia. She was also given multiple doses of NSAIDS. Her renal function is improving Has mccray, currently non oliguric, leave in place for now given mobility issues Obtain Renal US Obtain UA, repeat labs in AM Avoid nephrotoxic agents She was started on Dopamine, maintain MAP > 65mmHg. (2) Anemia ICD Codes: D64.9 - Anemia, unspecified Plan: 400 ml EBL during surgery 2 units ordered for today (3) Thoracic stenosis ICD Codes: M48.04 - Spinal stenosis, thoracic region Plan: Neurosurgery following Pain control, PT/OT Follow neurovascular status Assessment and Plan patient was seen and examined. Agree with above assessment and plan. Avoid NSAIDs. Renal function appears to be improving. Continue supportive care. (Daryl Brewster MD) Aria Ornelas [employer]INTED [employer]ARD [employer] DRAFTSMAN Nov 14, 2017 13:43 Daryl Brewster MD Nov 15, 2017 15:38
[2017-11-14] MEDS: methylPREDNISolone SOD SUCC 125 MG/2 ML VIAL IV PUSH SCH ×3 (13:44→22:32)
[2017-11-14] MEDS: PIPERACIL-TAZO 3.375 GM PREMIX 50 ML IV SCH ×2 (13:45→22:27)
[2017-11-14 14:49] LABS: HEMATOCRIT 22.1 % (35.0-46.0); HEMOGLOBIN 7.2 GM/DL (11.6-15.3); MEAN CELL VOLUME 88.3 FL (80.0-100.0); MEAN CORPUSCULAR HEMOGLOBIN 28.9 PG (27.0-34.0); MEAN CORPUSCULAR HGB CONC 32.7 % (32.0-36.0); MEAN PLATELET VOLUME 8.4 FL (7.0-11.0); PLATELET COUNT 192 TH/MM3 (150-450); RED CELL DISTRIBUTION WIDTH 16.7 % (11.6-17.2); WHITE BLOOD COUNT 7.5 TH/MM3 (4.0-11.0)
--- NOTE | 2017-11-14 14:54 | RADRPT ---
EXAM DATE/TIME: 11/14/2017 13:38 [facility] COMPARISON: No previous studies available for comparison. INDICATIONS : Increased BUN/Creatinine. MEDICAL HISTORY : Hypertension. Gastroesophageal reflux disease. Atrial fibrillation. Stage III renal disease. SURGICAL HISTORY : Cholecystectomy. Hysterectomy. Lumbar laminectomy and fusion. Cardiac catheterization. Cardiac abla tion. Bladder sling. Left total hip replacement. Bilateral caral tunnel release. ENCOUNTER: Initial ACUITY: 1 day PAIN SCORE: 0/10 LOCATION: Bilateral flank MEASUREMENTS: RIGHT KIDNEY: 9.7 x 4.7 x 3.8 cm LEFT KIDNEY: 11.1 x 4.8 x 4.2 cm FINDINGS: RIGHT KIDNEY: Slight increase cortical echogenicity. No stones or hydronephrosis. LEFT KIDNEY: Slight increased cortical echogenicity. No stones or hydronephrosis BLADDER: Completely decompressed. CONCLUSION: 1. Slight increase cortical echogenicity in both kidneys with preserved size characteristic of possib le mild, acute medical renal disease. 2. Otherwise negative. No hydronephrosis or nephrolithiasis. Urinary bladder is decompressed. Addison Moya MD on November 14, 2017 at 14:50 Board Certified Radiologist. This report was verified electronically.
--- NOTE | 2017-11-14 22:36 | MB ---
cc: JOAQUIN ROOT DATE OF CONSULTATION 11/14/17 HISTORY OF PRESENT ILLNESS This is a 72-year-old woman who is admitted to the hospital for spinal stenosis and repaired at surgery. She underwent a T11-12 decompressive laminectomy as well as an L1-2 decompressive laminectomy with a PEEK cage and a T12 lateral fusion. Postoperatively, she developed brief hypotension and her blood pressure was supported with dopamine. Since that time, she has had worsening of her chronic renal failure. Baseline creatinine was 1.6 and it has been as high as 2.5 although yesterday and 2.1 today. We have been asked to see her for bradycardia. She has a history of atrial fibrillation approximately two years ago. This was treated medically and at one point in time she was on anticoagulant therapy but this was discontinued due to GI bleeding. She did have one episode of A. Fib with RPR on the but is currently in sinus rhythm at a rate of 58. She is supported with low-dose dopamine because of hypotension postoperatively. This is running at 3 mcg per kilogram per minute. She is awake and alert. She denies any problems with chest pain, shortness of breath, palpitations or dizziness, although she does feel quite tired. She has had a heart catheterization in the past but does not believe that any significant coronary disease was present. She is a former smoker but does not smoke any longer. No hypertension or diabetes is present. PHYSICAL EXAMINATION GENERAL: She is awake and alert. She appears in no acute distress, is quite pleasant. VITAL SIGNS: Blood pressure is 108/70, pulse is 58 and regular. NECK: No neck vein distension. Carotids are normal. LUNGS: Clear. CARDIOVASCULAR: Reveals a 1-2/6 systolic murmur at the left sternal border. No diastolic murmur is present. ABDOMEN: Soft. There is no tenderness, organomegaly. EXTREMITIES: No edema. ASSESSMENT The patient has had a brief paroxysmal atrial fibrillation, possibly secondary to hypotension. She is back in sinus rhythm with heart rate of approximately 58. Blood pressure is stable on a very low-dose of dopamine and her renal function appears to be improving. At this point in time, she appears to be stable from a cardiovascular standpoint. She is quite anemic and is due to receive some blood. I suspect that and further fluid administration will probably help with her renal function as well. We will be happy to follow along with you, but at this point in time I do not think any cardiac intervention is necessary. MD CRYSTAL Barber/ /3:12 PM /9:53 PM
[2017-11-15] VITALS (14 sets, daily range): BP systolic 122–183; BP diastolic 60–82; PULSE 59–92; RESP 24–31; TEMP 97.5–99.4; O2SAT 90–98
[2017-11-15 00:38] LABS: BACTERIA, URINE RARE /hpf; BILIRUBIN, URINE NEG (NEG); BLOOD, URINE NEG (NEG); GLUCOSE,URINE NEG (NEG); KETONE, URINE NEG (NEG); MUCUS URINE FEW /lpf (OCC); NITRITE,URINE NEG (NEG); SQUAMOUS EPITHELIAL CELL URINE <1 /hpf (0-5); URINE COLOR COLORLESS (YELLW/STRAW); URINE LEUKOCYTE ESTERASE NEG (NEG)
[2017-11-15] MEDS: POTASSIUM CHLORIDE INJ 10 MEQ in SODIUM CHLOR 0.9% 1000 ML INJ 1,000 ML IV SCH ×2 (00:42→09:56)
[2017-11-15] MEDS: HYDROmorphone HCL PF 2 MG/ML VIAL IV PRN ×4 (02:27→21:00)
[2017-11-15] MEDS: RESP: ALBUTEROL 2.5 MG/IPRATROPIUM 0.5 MG NEB (SCH) NEB ×4 (03:25→21:27)
[2017-11-15] MEDS: ACETAMINOPHEN/HYDROcodone 325 MG/10 MG TAB PO PRN ×5 (03:59→23:53)
[2017-11-15] MEDS: PIPERACIL-TAZO 3.375 GM PREMIX 50 ML IV SCH ×3 (05:26→21:31)
[2017-11-15 05:47] LABS: HEMATOCRIT 31.6 % (35.0-46.0); HEMOGLOBIN 10.8 GM/DL (11.6-15.3); MEAN CELL VOLUME 86.1 FL (80.0-100.0); MEAN CORPUSCULAR HEMOGLOBIN 29.4 PG (27.0-34.0); MEAN CORPUSCULAR HGB CONC 34.2 % (32.0-36.0); MEAN PLATELET VOLUME 8.5 FL (7.0-11.0); PLATELET COUNT 172 TH/MM3 (150-450); RED BLOOD COUNT 3.66 MIL/MM3 (4.00-5.30); RED CELL DISTRIBUTION WIDTH 15.9 % (11.6-17.2); WHITE BLOOD COUNT 6.7 TH/MM3 (4.0-11.0)
[2017-11-15 06:09] LABS: BICARBONATE 29.9 MEQ/L (21.0-32.0); CALCIUM 8.5 MG/DL (8.5-10.1); CREATININE 1.58 MG/DL (0.50-1.00)
[2017-11-15] MEDS: methylPREDNISolone SOD SUCC 125 MG/2 ML VIAL IV PUSH SCH ×3 (06:31→21:31)
[2017-11-15] MEDS: INSULIN NovoLIN REGULAR SUPPLEMENTAL SCALE SQ SCH ×4 (08:00→21:30)
--- NOTE | 2017-11-15 08:37 | PD.CARD.PN ---
Subjective Subjective Remarks Complains of pain from the surgery. Received transfusion overnight. She denies any chest pain, shortness breath, palpitations. Telemetry currently NSR. Objective Medications Current Medications Medications (Trade) Dose Ordered Sig/Reynaldo Route Start Time Stop Time Status Last Admin (Colace) 100 mg BID PO 11/12/17 21:00 11/14/17 22:27 (Zofran Inj) 4 mg Q6H PRN IV PUSH 11/12/17 20:30 (Narcan Inj) 0.4 mg UNSCH PRN IV PUSH 11/12/17 20:30 Future Hold (Dilaudid POWER PLANT MECHANIC Inj) 6 mg UNSCH IV 11/12/17 20:30 Future Hold 11/13/17 19:52 POWER PLANT MECHANIC Dosage Infused (Pha) 1 Q8HR OTHER 11/12/17 22:00 Future Hold 11/13/17 22:00 ([place] 5-325 Mg) 1 tab Q4H PRN PO 11/12/17 20:30 ([place] 10-325 Mg) 1 tab Q4H PRN PO 11/12/17 20:30 11/15/17 03:59 (Narcan Inj) 0.4 mg UNSCH PRN IV PUSH 11/12/17 20:30 (Robaxin) 500 mg Q8H PRN PO 11/12/17 20:30 11/12/17 21:18 (Cardizem Cd) 180 mg BID PO 11/12/17 21:00 Future Hold 11/13/17 21:25 (Neurontin) 300 mg BID PO 11/12/17 21:00 11/14/17 22:27 (Protonix) 40 mg DAILY PO 11/13/17 09:00 11/14/17 09:16 (Theragran M Tab) 0.5 tab BID PO 11/13/17 09:00 11/14/17 22:28 (Pill Splitter) 1 ea UNSCH PRN OTHER 11/12/17 21:00 (Oscal-D 250-125) 125 mg BID PO 11/13/17 09:00 11/14/17 22:28 (D50w (Vial) Inj) 50 ml UNSCH PRN IV PUSH 11/13/17 13:00 (Glucagon Inj) 1 mg UNSCH PRN OTHER 11/13/17 13:00 (NovoLIN R SUPPLEMENTAL SCALE) 1 ACHS SLIDING SCALE SQ 11/13/17 17:00 11/14/17 22:29 Potassium Chloride 10 meq/ Sodium Chloride 1,005 ml @ 84 mls/hr [id number] IV 11/14/17 10:00 11/15/17 00:42 Phenylephrine HCl 40 mg/Dextrose 500 ml @ 30 mls/hr TITRATE PRN IV 11/14/17 12:00 (Brethine Inj) 1 mg UNSCH PRN SQ 11/14/17 12:00 (Duoneb Neb) 1 ampule Q6HR NEB NEB 11/14/17 13:00 11/15/17 08:00 (Duoneb Neb) 1 ampule Q2HR NEB PRN NEB 11/14/17 12:00 (SoluMEDROL INJ) 60 mg Q8HR IV PUSH 11/14/17 12:00 11/15/17 06:31 Piperacillin Sod/ Tazobactam Sod 50 ml @ 100 mls/hr Q8H IV 11/14/17 13:00 11/15/17 05:26 Dopamine HCl/ Dextrose 500 ml @ 5.158 mls/ hr TITRATE PRN IV 11/14/17 13:00 11/14/17 13:44 (Brethine Inj) 1 mg UNSCH PRN SQ 11/14/17 13:00 (Dilaudid Pf Inj) 0.5 mg Q4H PRN IV 11/15/17 02:15 11/15/17 02:27 Vital Signs / I&O Vital Signs Date Time Temp Pulse Resp B/P (MAP) Pulse Ox O2 Delivery O2 Flow Rate FiO2 11/15/17 06:00 62 11/15/17 04:59 20 11/15/17 04:00 98.0 66 25 122/61 (81) 97 11/15/17 04:00 62 11/15/17 02:00 59 11/15/17 00:00 62 11/15/17 00:00 97.5 62 24 129/60 (83) 97 11/14/17 22:00 76 11/14/17 21:16 96 Nasal Cannula 4.00 11/14/17 20:00 97.8 58 19 134/68 (90) 98 11/14/17 20:00 58 11/14/17 19:00 95 Nasal Cannula 4.00 11/14/17 18:05 97.5 57 12 140/66 96 11/14/17 18:00 57 11/14/17 17:00 50 145/66 11/14/17 16:00 97.1 41 12 109/54 (72) 95 11/14/17 16:00 41 11/14/17 14:50 98 Nasal Cannula 4.00 11/14/17 14:00 53 11/14/17 13:44 50 96/55 11/14/17 12:30 95 Nasal Cannula 6.00 11/14/17 12:00 48 11/14/17 12:00 98.4 56 15 93/54 (67) 94 11/14/17 11:41 93 Nasal Cannula 6.00 11/14/17 10:00 51 I/O 11/14/17 11/14/17 11/14/17 11/15/17 11/15/17 11/15/17 07:00 15:00 23:00 07:00 15:00 23:00 Intake Total 500 ml 1693.8 ml 1656.2 ml Output Total 3625 ml 2415 ml Balance 500 ml -1931.2 ml -758.8 ml Intake Oral 240 ml 600 ml IV Total 250 ml 3.8 ml 1056.2 ml Packed Cells 800 ml Blood Product IV Normal Saline Flush 250 ml 650 ml Output Urine Total 3575 ml 2400 ml Drainage Total 50 ml 15 ml # Bowel Movements 0 0 Physical Exam GENERAL: Well-developed well-nourished. In no acute distress. NECK: No carotid bruits. No JVD. CARDIOVASCULAR: Regular rate and rhythm. No murmur appreciated. RESPIRATORY: No accessory muscle use. Clear to auscultation. Breath sounds equal bilaterally. MUSCULOSKELETAL: No clubbing or cyanosis. No edema. NEUROLOGICAL: Awake and alert. Normal speech. Laboratory Laboratory Tests Test 11/14/17 11:56 11/14/17 12:30 11/14/17 14:16 11/15/17 00:00 White Blood Count 6.3 TH/MM3 7.5 TH/MM3 Red Blood Count 2.39 MIL/MM3 2.50 MIL/MM3 Hemoglobin 7.0 GM/DL 7.2 GM/DL Hematocrit 21.3 % 22.1 % Mean Corpuscular Volume 88.8 FL 88.3 FL Mean Corpuscular Hemoglobin 29.2 PG 28.9 PG Mean Corpuscular Hemoglobin Concent 32.9 % 32.7 % Red Cell Distribution Width 16.7 % 16.7 % Platelet Count 176 TH/MM3 192 TH/MM3 Mean Platelet Volume 8.4 FL 8.4 FL Neutrophils (%) (Auto) 74.1 % Lymphocytes (%) (Auto) 18.0 % Monocytes (%) (Auto) 7.3 % Eosinophils (%) (Auto) 0.4 % Basophils (%) (Auto) 0.2 % Neutrophils # (Auto) 4.7 TH/MM3 Lymphocytes # (Auto) 1.1 TH/MM3 Monocytes # (Auto) 0.5 TH/MM3 Eosinophils # (Auto) 0.0 TH/MM3 Basophils # (Auto) 0.0 TH/MM3 CBC Comment DIFF FINAL Differential Comment Prothrombin Time 10.5 SEC Prothromb Time International Ratio 1.0 RATIO Activated Partial Thromboplast Time 24.3 SEC Blood Urea Nitrogen 45 MG/DL Creatinine 2.21 MG/DL Random Glucose 117 MG/DL Total Protein 5.7 GM/DL Calcium Level 7.4 MG/DL Sodium Level 135 MEQ/L Potassium Level 3.9 MEQ/L Chloride Level 101 MEQ/L Carbon Dioxide Level 25.5 MEQ/L Anion Gap 9 MEQ/L Estimat Glomerular Filtration Rate 22 ML/MIN Protein Corrected Calcium 8.2 MG/DL Blood Gas Puncture Site RT BRACHIAL Blood Gas Patient Temperature 98.6 Blood Gas HCO3 22 mmol/L Blood Gas Base Excess -3.0 mmol/L Blood Gas Oxygen Saturation 91 % Arterial Blood pH 7.33 Arterial Blood Partial Pressure CO2 43 mmHg Arterial Blood Partial Pressure O2 71 mmHg Arterial Blood Oxygen Content 9.1 Vol % Arterial Blood Carboxyhemoglobin 1.5 % Arterial Blood Methemoglobin 0.9 % Blood Gas Hemoglobin 7.0 G/DL Oxygen Delivery Device NASAL CANNULA Blood Gas Liter Flow 6 L/M Lactic Acid Level 1.6 mmol/L Urine Color COLORLESS Urine Turbidity CLEAR Urine pH 5.0 Urine Specific Reading 1.006 Urine Protein NEG mg/dL Urine Glucose (UA) NEG mg/dL Urine Ketones NEG mg/dL Urine Occult Blood NEG Urine Nitrite NEG Urine Bilirubin NEG Urine Urobilinogen LESS THAN 2.0 MG/DL Urine Leukocyte Esterase NEG Urine RBC 1 /hpf Urine WBC LESS THAN 1 /hpf Urine Squamous Epithelial Cells <1 /hpf Urine Bacteria RARE /hpf Urine Mucus FEW /lpf Microscopic Urinalysis Comment CATH-CULTURE IND Test 11/15/17 03:41 White Blood Count 6.7 TH/MM3 Red Blood Count 3.66 MIL/MM3 Hemoglobin 10.8 GM/DL Hematocrit 31.6 % Mean Corpuscular Volume 86.1 FL Mean Corpuscular Hemoglobin 29.4 PG Mean Corpuscular Hemoglobin Concent 34.2 % Red Cell Distribution Width 15.9 % Platelet Count 172 TH/MM3 Mean Platelet Volume 8.5 FL Blood Urea Nitrogen 42 MG/DL Creatinine 1.58 MG/DL Random Glucose 142 MG/DL Calcium Level 8.5 MG/DL Sodium Level 140 MEQ/L Potassium Level 3.9 MEQ/L Chloride Level 102 MEQ/L Carbon Dioxide Level 29.9 MEQ/L Anion Gap 8 MEQ/L Estimat Glomerular Filtration Rate 32 ML/MIN Imaging Last Impressions Renal Ultrasound 11/14/17 0000 Signed Impressions: Service Date/Time: October 13:38 - CONCLUSION: 1. Slight increase cortical echogenicity in both kidneys with preserved size characteristic of possible mild, acute medical renal disease. 2. Otherwise negative. No hydronephrosis or nephrolithiasis. Urinary bladder is decompressed. Addsion Moya MD Chest X-Ray 11/14/17 0000 Signed Impressions: Service Date/Time: October 11:17 - CONCLUSION: Question of small infiltrate left lung base. Tenzin Walters MD Thoracolumbar Spine 11/12/17 0000 Signed Impressions: Service Date/Time: Sunday, November 12, 2017 09:59 - CONCLUSION: Intraoperative images. Jay Mariscal MD Assessment and Plan Assessment and Plan 72-year-old female admitted to the hospital for surgery for spinal stenosis, history of A. fib and had a brief episode of paroxysmal A. fib suspected due to hypotension. Hypotension: Improved today; received transfusion, creatinine improved. Paroxysmal atrial fibrillation: Currently in NSR. Home Diltiazem on hold secondary to the above. Previously taken off of anticoagulation with GI bleeding. Julian Corona Nov 15, 2017 08:37
--- NOTE | 2017-11-15 09:10 | HHI.NSPN ---
(Horacio Rendon) History Chief Complaint: Hurting all over. (Horacio Rendon) Interval History 11/12: The patient presented to [facility] for a T11-12 decompressive laminectomy, a L1-2 bilateral decompressive semi-hemilaminectomy with discectomy , interbody fusion and PEEK cage, and a bilateral T10-L2 posterior lateral fusion and posterior spinal instrumentation with revision of previous L2-3 instrumentation. Post-operatively she was admitted to the [facility]SC unit for further monitoring and care. 11/13: The patient is seen in rounds this morning with Dr Francois. She is awake and alert and visiting with her . She states that she is hurting to her back but her feet are less numb than they were. 11/14: This morning the patient is awake and alert when seen. She says she is doing good although she has soreness to her back. She denies any pain, numbness , tingling or weakness to the extremities but then qualifies that when examined and says the toes are still numb but better than before surgery. She remains on a JOY OPERATOR pump for pain control. She was given an extra dose of furosemide for decreased urine output and renal function. 11/15: The patient yesterday became hypotensive after using the JOY OPERATOR pump and receiving furosemide. She was being given a bolus of normal saline and had received approximately 200 mL when she developed dyspnea. The flow rate on her nasal cannula was increased, the saline bolus was stopped and a neb treatment ordered. The patient was discussed with the Yard Driver who evaluated her. A chest x-ray demonstrated a left lower lobe infiltrate and he began treatment for pneumonia. Due to a downward trend in her haemoglobin and her being symptomatic she was transfused two units of PRBCs. Nephrology and Cardiology were consulted by the Yard Driver and also evaluated her yesterday. This morning when seen the patient is awake and alert. Her is setting up her breakfast tray. She states that she hurts all over, especially to the back. Nursing reports that the dressing to the patient's back was changed three times yesterday but none at night. (Horacio Rendon) Exam Results 11/13/17 11/13/17 11/14/17 11/14/17 11/15/17 11/15/17 06:00 18:00 06:00 18:00 06:00 18:00 Intake Total 6233 ml 2090 ml 1543.8 ml 2306.2 ml Output Total 2225 ml 360 ml 1225 ml 4815 ml Balance 4008 ml 1730 ml 318.8 ml -2508.8 ml Intake Oral 600 ml 600 ml 240 ml 600 ml IV Total 850 ml 1490 ml 253.8 ml 1056.2 ml Autotransfusion 783 ml Packed Cells 400 ml 400 ml Blood Product IV Normal Saline Flush 650 ml 250 ml Other 4000 ml Output Urine Total 1430 ml 200 ml 1175 ml 4800 ml Stool Total 0 ml Drainage Total 395 ml 160 ml 50 ml 15 ml Estimated Blood Loss 400 ml # Bowel Movements 0 0 0 0 Vital Signs Date Time Temp Pulse Resp B/P (MAP) Pulse Ox O2 Delivery O2 Flow Rate FiO2 11/15/17 06:00 62 11/15/17 04:59 20 11/15/17 04:00 98.0 66 25 122/61 (81) 97 11/15/17 04:00 62 11/15/17 02:00 59 11/15/17 00:00 62 11/15/17 00:00 97.5 62 24 129/60 (83) 97 11/14/17 22:00 76 11/14/17 21:16 96 Nasal Cannula 4.00 11/14/17 20:00 97.8 58 19 134/68 (90) 98 11/14/17 20:00 58 11/14/17 19:00 95 Nasal Cannula 4.00 11/14/17 18:05 97.5 57 12 140/66 96 11/14/17 18:00 57 11/14/17 17:00 50 145/66 11/14/17 16:00 97.1 41 12 109/54 (72) 95 11/14/17 16:00 41 11/14/17 14:50 98 Nasal Cannula 4.00 11/14/17 14:00 53 11/14/17 13:44 50 96/55 11/14/17 12:30 95 Nasal Cannula 6.00 12/21/17 12:00 48 11/14/17 12:00 98.4 56 15 93/54 (67) 94 11/14/17 11:41 93 Nasal Cannula 6.00 11/14/17 10:00 51 11/14/17 08:00 98.1 54 16 91/50 (64) 97 11/14/17 08:00 64 11/14/17 07:00 97 Nasal Cannula 2.00 11/14/17 06:00 52 11/14/17 04:00 97.7 74 18 95/50 (65) 98 11/14/17 04:00 74 11/14/17 02:54 97 11/14/17 02:00 58 11/14/17 00:00 56 11/14/17 00:00 97.6 56 20 97/52 (67) 94 11/13/17 22:00 18 11/13/17 22:00 56 11/13/17 20:00 97.7 58 18 103/53 (70) 88 11/13/17 20:00 94 Room Air 11/13/17 20:00 58 11/13/17 19:52 19 11/13/17 18:00 62 11/13/17 16:00 55 11/13/17 16:00 98.3 55 20 114/57 (76) 93 11/13/17 14:00 56 11/13/17 14:00 20 11/13/17 12:00 60 11/13/17 12:00 98.1 60 20 93/63 (73) 94 11/13/17 11:42 97 11/13/17 10:00 69 11/13/17 08:18 94 Nasal Cannula 3.00 11/13/17 08:00 97.7 58 17 93/63 (73) 95 11/13/17 08:00 57 11/13/17 07:00 95 Nasal Cannula 2.00 11/13/17 06:00 97.8 58 10 88/52 (64) 93 11/13/17 06:00 58 11/13/17 05:00 97.8 70 25 112/56 (74) 94 11/13/17 04:00 64 11/13/17 04:00 97.6 64 25 100/51 (67) 94 11/13/17 03:00 97.0 57 10 108/55 (72) 95 11/13/17 02:00 52 11/13/17 02:00 97.3 52 9 112/56 (74) 94 11/13/17 01:00 97.2 50 9 106/59 (75) 94 11/13/17 00:24 96 Nasal Cannula 3.00 11/13/17 00:00 82 11/13/17 00:00 97.0 82 14 100/52 (68) 97 11/12/17 22:00 54 13 102/58 (73) 96 Nasal Cannula 3 11/12/17 21:00 55 11 96/52 (67) 96 Nasal Cannula 3 11/12/17 20:51 12 11/12/17 20:45 53 12 97/53 (68) 94 Nasal Cannula 3 11/12/17 20:30 54 12 95/55 (68) 94 Nasal Cannula 3 11/12/17 20:15 55 12 91/56 (68) 96 Nasal Cannula 3 11/12/17 20:00 54 11 104/55 (71) 96 Nasal Cannula 3 11/12/17 19:45 54 13 95/51 (66) 94 Nasal Cannula 3 11/12/17 19:35 98.2 54 11 159/54 (89) 96 Nasal Cannula 3 (Horacio Rendon) Physical Examination GENERAL: Awake & alert in bed, readily interacts, normal affect, no apparent distress. RESPIRATORY: CTAB w/o W/R/R, equal excursion, nonlaboured, on NC. CARDIOVASCULAR: S1S2 w/RRR w/o M/G/R, radial pulses 2+ bilaterally, cap refill < 2 sec. Monitor is sinus rhythm w/o any ectopy noted. GASTROINTESTINAL: Abdomen, soft, nontender, bowel sounds not appreciated. MUSCULOSKELETAL: GARCES w/o difficulty. Extremities NTTP. Thoracolumbar spine TTP, dressing intact w/shadowing, there is serosanguinous drainage from the mid incision and the steri-strips have fallen off due to the drainage. The FRED drain is to bulb suction w/serosanguinous drainage. There is no erythema or streaking from the surgical incision or FRED insertion site. NEUROLOGICAL: AAOx3. Speech clear & appropriate. Follows simple commands w/o difficulty. Sensation to light touch to all extremities. Motor strength 5/5 to all major flexion & extension muscle groups. (Horacio Rendon) Lab, Micro, Other Results Recent Impressions Renal Ultrasound 11/14/17 0000 Signed Impressions: Service Date/Time: October 13:38 - CONCLUSION: 1. Slight increase cortical echogenicity in both kidneys with preserved size characteristic of possible mild, acute medical renal disease. 2. Otherwise negative. No hydronephrosis or nephrolithiasis. Urinary bladder is decompressed. Addison Moya MD Chest X-Ray 11/14/17 0000 Signed Impressions: Service Date/Time: October 11:17 - CONCLUSION: Question of small infiltrate left lung base. Tenzin Walters MD Laboratory Tests Test 11/12/17 13:38 11/12/17 22:35 11/13/17 05:10 11/13/17 14:59 Blood Gas Puncture Site DRAWN IN OR Blood Gas Patient Temperature 98.6 Blood Gas HCO3 23 mmol/L Blood Gas Base Excess -0.6 mmol/L Blood Gas Oxygen Saturation 97 % Arterial Blood pH 7.46 Arterial Blood Partial Pressure CO2 33 mmHg Arterial Blood Partial Pressure O2 174 mmHg Arterial Blood Oxygen Content 13.9 Vol % Arterial Blood Carboxyhemoglobin 1.3 % Arterial Blood Methemoglobin 1.0 % Blood Gas Hemoglobin 9.9 G/DL Oxygen Delivery Device VENTILATOR Blood Gas Inspired Oxygen 60 % White Blood Count 9.3 TH/MM3 7.8 TH/MM3 11.0 TH/MM3 Red Blood Count 3.40 MIL/MM3 3.02 MIL/MM3 2.87 MIL/MM3 Hemoglobin 9.9 GM/DL 8.8 GM/DL 8.4 GM/DL Hematocrit 29.9 % 26.7 % 25.5 % Mean Corpuscular Volume 88.0 FL 88.3 FL 89.0 FL Mean Corpuscular Hemoglobin 29.2 PG 29.2 PG 29.1 PG Mean Corpuscular Hemoglobin Concent 33.2 % 33.1 % 32.7 % Red Cell Distribution Width 16.8 % 16.9 % 16.9 % Platelet Count 270 TH/MM3 221 TH/MM3 231 TH/MM3 Mean Platelet Volume 7.9 FL 8.5 FL 8.6 FL Neutrophils (%) (Auto) 89.4 % 82.7 % Lymphocytes (%) (Auto) 6.9 % 9.8 % Monocytes (%) (Auto) 3.6 % 7.5 % Eosinophils (%) (Auto) 0.0 % 0.0 % Basophils (%) (Auto) 0.1 % 0.0 % Neutrophils # (Auto) 8.3 TH/MM3 6.4 TH/MM3 Lymphocytes # (Auto) 0.6 TH/MM3 0.8 TH/MM3 Monocytes # (Auto) 0.3 TH/MM3 0.6 TH/MM3 Eosinophils # (Auto) 0.0 TH/MM3 0.0 TH/MM3 Basophils # (Auto) 0.0 TH/MM3 0.0 TH/MM3 CBC Comment DIFF FINAL DIFF FINAL Differential Comment Blood Urea Nitrogen 31 MG/DL 36 MG/DL 43 MG/DL Creatinine 1.73 MG/DL 2.03 MG/DL 2.51 MG/DL Random Glucose 179 MG/DL 141 MG/DL 126 MG/DL Calcium Level 7.9 MG/DL 7.9 MG/DL 7.8 MG/DL Sodium Level 139 MEQ/L 139 MEQ/L 135 MEQ/L Potassium Level 5.2 MEQ/L 4.9 MEQ/L 5.0 MEQ/L Chloride Level 106 MEQ/L 105 MEQ/L 103 MEQ/L Carbon Dioxide Level 26.0 MEQ/L 25.8 MEQ/L 23.4 MEQ/L Anion Gap 7 MEQ/L 8 MEQ/L 9 MEQ/L Estimat Glomerular Filtration Rate 29 ML/MIN 24 ML/MIN 19 ML/MIN Prothrombin Time 10.7 SEC Prothromb Time International Ratio 1.1 RATIO Activated Partial Thromboplast Time 23.4 SEC Test 11/13/17 19:17 11/14/17 03:48 11/14/17 11:56 11/14/17 12:30 White Blood Count 9.3 TH/MM3 6.3 TH/MM3 Red Blood Count 2.70 MIL/MM3 2.39 MIL/MM3 Hemoglobin 7.9 GM/DL 7.0 GM/DL Hematocrit 23.9 % 21.3 % Mean Corpuscular Volume 88.5 FL 88.8 FL Mean Corpuscular Hemoglobin 29.1 PG 29.2 PG Mean Corpuscular Hemoglobin Concent 32.9 % 32.9 % Red Cell Distribution Width 17.1 % 16.7 % Platelet Count 215 TH/MM3 176 TH/MM3 Mean Platelet Volume 8.8 FL 8.4 FL Blood Urea Nitrogen 45 MG/DL 45 MG/DL Creatinine 2.37 MG/DL 2.21 MG/DL Random Glucose 93 MG/DL 117 MG/DL Calcium Level 7.9 MG/DL 7.4 MG/DL Sodium Level 134 MEQ/L 135 MEQ/L Potassium Level 4.3 MEQ/L 3.9 MEQ/L Chloride Level 101 MEQ/L 101 MEQ/L Carbon Dioxide Level 25.4 MEQ/L 25.5 MEQ/L Anion Gap 8 MEQ/L 9 MEQ/L Estimat Glomerular Filtration Rate 20 ML/MIN 22 ML/MIN Neutrophils (%) (Auto) 74.1 % Lymphocytes (%) (Auto) 18.0 % Monocytes (%) (Auto) 7.3 % Eosinophils (%) (Auto) 0.4 % Basophils (%) (Auto) 0.2 % Neutrophils # (Auto) 4.7 TH/MM3 Lymphocytes # (Auto) 1.1 TH/MM3 Monocytes # (Auto) 0.5 TH/MM3 Eosinophils # (Auto) 0.0 TH/MM3 Basophils # (Auto) 0.0 TH/MM3 CBC Comment DIFF FINAL Differential Comment Prothrombin Time 10.5 SEC Prothromb Time International Ratio 1.0 RATIO Activated Partial Thromboplast Time 24.3 SEC Total Protein 5.7 GM/DL Protein Corrected Calcium 8.2 MG/DL Blood Gas Puncture Site RT BRACHIAL Blood Gas Patient Temperature 98.6 Blood Gas HCO3 22 mmol/L Blood Gas Base Excess -3.0 mmol/L Blood Gas Oxygen Saturation 91 % Arterial Blood pH 7.33 Arterial Blood Partial Pressure CO2 43 mmHg Arterial Blood Partial Pressure O2 71 mmHg Arterial Blood Oxygen Content 9.1 Vol % Arterial Blood Carboxyhemoglobin 1.5 % Arterial Blood Methemoglobin 0.9 % Blood Gas Hemoglobin 7.0 G/DL Oxygen Delivery Device NASAL CANNULA Blood Gas Liter Flow 6 L/M Test 11/14/17 14:16 11/15/17 00:00 11/15/17 03:41 White Blood Count 7.5 TH/MM3 6.7 TH/MM3 Red Blood Count 2.50 MIL/MM3 3.66 MIL/MM3 Hemoglobin 7.2 GM/DL 10.8 GM/DL Hematocrit 22.1 % 31.6 % Mean Corpuscular Volume 88.3 FL 86.1 FL Mean Corpuscular Hemoglobin 28.9 PG 29.4 PG Mean Corpuscular Hemoglobin Concent 32.7 % 34.2 % Red Cell Distribution Width 16.7 % 15.9 % Platelet Count 192 TH/MM3 172 TH/MM3 Mean Platelet Volume 8.4 FL 8.5 FL Lactic Acid Level 1.6 mmol/L Urine Color COLORLESS Urine Turbidity CLEAR Urine pH 5.0 Urine Specific [place] 1.006 Urine Protein NEG mg/dL Urine Glucose (UA) NEG mg/dL Urine Ketones NEG mg/dL Urine Occult Blood NEG Urine Nitrite NEG Urine Bilirubin NEG Urine Urobilinogen LESS THAN 2.0 MG/DL Urine Leukocyte Esterase NEG Urine RBC 1 /hpf Urine WBC LESS THAN 1 /hpf Urine Squamous Epithelial Cells <1 /hpf Urine Bacteria RARE /hpf Urine Mucus FEW /lpf Microscopic Urinalysis Comment CATH-CULTURE IND Blood Urea Nitrogen 42 MG/DL Creatinine 1.58 MG/DL Random Glucose 142 MG/DL Calcium Level 8.5 MG/DL Sodium Level 140 MEQ/L Potassium Level 3.9 MEQ/L Chloride Level 102 MEQ/L Carbon Dioxide Level 29.9 MEQ/L Anion Gap 8 MEQ/L Estimat Glomerular Filtration Rate 32 ML/MIN (Horacio Rendon) Medical Decision Making Impression and Plan Impression: Preoperative Diagnosis: (1) Thoracic stenosis (2) Thoracic myelopathy (3) Lumbar degenerative disc disease 1. Severe T11-12 stenosis 2. Thoracic myelopathy 3. L1-2 adjacent level degeneration above previous L2-5 fusion 4. Thoracolumbar acquired sagittal deformity The patient is doing better this morning. Her respiratory status is improved. The hypotension has resolved. Her pain is not as well controlled today. Her myelopathy has resolved. Surgical incision approximated but with some drainage to the mid incision. Reviewed labs for today. Haemoglobin improved although anaemia still present. Resolution of hyponatremia. Decreased renal function still. FRED drain with 65 mL output for the past 24 hours. POD #3 () s/p: 1. T11 12 decompressive laminectomy, medial facetectomy for spinal cord decompression 2. L1-2 bilateral decompressive semi-hemilaminectomy, Saenz-Guerrier osteotomy 3. L1-2 discectomy, interbody fusion,PEEK cage, lamina autograft bone, demineralized bone and stem cell matrix, cancellus bone chips. 4. Bilateral T10-L2 posterior lateral fusion with lamina autograft, demineralized bone and stem cell matrix, cancellus bone chips 5. Bilateral T10-L3 posterior spinal instrumentation, revision previous L2-3 instrumentation. Postoperative Diagnosis: (1) Thoracic stenosis (2) Thoracic myelopathy (3) Lumbar degenerative disc disease 1. Severe T11-12 stenosis 2. Thoracic myelopathy 3. L1-2 adjacent level degeneration above previous L2-5 fusion 4. Thoracolumbar acquired sagittal deformity Plan: Medical management per Yard Driver/Hospitalist. Frequent neuro checks. Mobilise patient w/assistance. TLSO brace when OOB. Keep patient off back. Maintain Hi and monitor urine output. Change dressing to surgical incision as needed and reinforce incision with steri -strips if they fall off. (Horacio Rendon) Attending Statement The exam, history, and the medical decision-making described in the above note were completed with the assistance of the mid-level provider. I reviewed and agree with the findings presented. I attest that I had a [id number] encounter with the patient on the same day, and personally performed and documented my assessment and findings in the medical record. Complains of moderate low back pain today No chest pain or shortness of breath No radiating pain in the lower extremities. No weakness or numbness lower extremities She sat in a chair for 20 or 30 minutes today Cardiac echo results with mild to moderate mitral regurgitation. Patient noted to have paroxysmal atrial fibrillation on 11/14/17. Now resolved on today's exam Cardiology notes reviewed. Yard Driver as reviewed Nephrology notes reviewed. Chronic kidney disease with acute kidney failure. Continue to hold NSAIDs. Renal ultrasound unremarkable. Urine output improving. He is not and creatinine improving. Discussed with the patient Continue therapy Continue out of bed with TLSO brace. Moderate serosanguineous drainage persisted today. She complains of a headache this evening. However she was out of bed this afternoon without significant increase headache symptoms. Plan to continue to monitor drainage, headaches and other symptoms and findings. No definite CSF leak at present. (Nolan Francois MD) Horacio Rendon Nov 15, 2017 09:10 Nolan Francois MD Nov 15, 2017 18:27
[2017-11-15] MEDS: DOCUSATE SODIUM 100 MG CAP PO SCH ×2 (09:15→21:28)
[2017-11-15] MEDS: CALCIUM/VITAMIN D 250 MG/125 U TAB PO SCH ×2 (09:15→21:29)
[2017-11-15] MEDS: GABAPENTIN 300 MG CAP PO SCH ×2 (09:15→21:29)
[2017-11-15] MEDS: PANTOPRAZOLE SOD 40 MG DELAYED RELEASE TAB PO SCH (09:16)
[2017-11-15] MEDS: MULTIVITAMINS/MINERALS THERAPEUTIC TAB PO SCH ×2 (09:16→21:29)
[2017-11-15] MEDS: METHOCARBAMOL 500 MG TAB PO PRN ×2 (11:46→19:53)
--- NOTE | 2017-11-15 11:59 | HHI.NPPN ---
Subjective General Problems: Anemia Renal Failure: Chronic, Acute, Stage III Interval History Renal function is better. (Aria Ornelas) Review of Systems General Constitutional: Fatigue (Aria Ornelas) Musculoskeletal MS: Pain/Stiffness (Aria Ornelas) Objective Data Data Vital Signs Date Time Temp Pulse Resp B/P (MAP) Pulse Ox O2 Delivery O2 Flow Rate FiO2 11/15/17 10:00 67 11/15/17 08:00 99.4 63 30 145/67 (93) 98 11/15/17 08:00 63 11/15/17 07:30 98 Nasal Cannula 4.00 11/15/17 06:00 62 11/15/17 04:59 20 11/15/17 04:00 98.0 66 25 122/61 (81) 97 11/15/17 04:00 62 11/15/17 02:00 59 11/15/17 00:00 62 11/15/17 00:00 97.5 62 24 129/60 (83) 97 11/14/17 22:00 76 11/14/17 21:16 96 Nasal Cannula 4.00 11/14/17 20:00 97.8 58 19 134/68 (90) 98 11/14/17 20:00 58 11/14/17 19:00 95 Nasal Cannula 4.00 11/14/17 18:05 97.5 57 12 140/66 96 11/14/17 18:00 57 11/14/17 17:00 50 145/66 11/14/17 16:00 97.1 41 12 109/54 (72) 95 11/14/17 16:00 41 11/14/17 14:50 98 Nasal Cannula 4.00 11/14/17 14:00 53 11/14/17 13:44 50 96/55 11/14/17 12:30 95 Nasal Cannula 6.00 11/14/17 12:00 48 11/14/17 12:00 98.4 56 15 93/54 (67) 94 (Aria Ornelas) -: 11/15/17 0341 11/15/17 0341 Microbiology 11/14/17 Aerobic Blood Culture - Preliminary, Resulted NO GROWTH IN 1 DAY 11/14/17 Anaerobic Blood Culture - Preliminary, Resulted NO GROWTH IN 1 DAY 11/14/17 Aerobic Blood Culture - Preliminary, Resulted NO GROWTH IN 1 DAY 11/14/17 Anaerobic Blood Culture - Preliminary, Resulted NO GROWTH IN 1 DAY 11/15/17 Urine Culture, Received Pending Imaging Last 72 hours Impressions Renal Ultrasound 11/14/17 0000 Signed Impressions: Service Date/Time: October 13:38 - CONCLUSION: 1. Slight increase cortical echogenicity in both kidneys with preserved size characteristic of possible mild, acute medical renal disease. 2. Otherwise negative. No hydronephrosis or nephrolithiasis. Urinary bladder is decompressed. Addison Moya MD Chest X-Ray 11/14/17 0000 Signed Impressions: Service Date/Time: October 11:17 - CONCLUSION: Question of small infiltrate left lung base. Tenzin Walters MD Tubes & Lines: Mccray Tubes & Lines Comment FRED drain thoracic area (Sundeep Ornelason B. MEDICAL OFFICE ADMINISTRATOR) Physical Exam General Appearance: Well Developed, Well Nourished, Comfortable (Aria Ornelas B. MEDICAL OFFICE ADMINISTRATOR) Eyes Eye Exam: Pupils Equal (Aria Ornelas B. MEDICAL OFFICE ADMINISTRATOR) Throat Throat Exam: Oral Mucosa [place] & Moist (Sundeep Ornelason B. MEDICAL OFFICE ADMINISTRATOR) Neck Neck Exam: Neck Supple (CeciAria B. MEDICAL OFFICE ADMINISTRATOR) Pulmonary Resp Exam: Clear Bilaterally, Breath Sounds Equal (Sundeep Ornelason B. MEDICAL OFFICE ADMINISTRATOR) Cardiology CV Exam: Regular, Normal Sinus Rhythm (Aria Ornelas B. MEDICAL OFFICE ADMINISTRATOR) Gastrointestinal/Abdomen GI Exam: Soft, Non-Tender, Bowel Sounds Present (Aria Ornelas B. MEDICAL OFFICE ADMINISTRATOR) Musculoskeletal MS Exam: Joints Intact, Normal Tone, Good Strength (Aria Ornelas B. MEDICAL OFFICE ADMINISTRATOR) Integumentary Skin Exam: Clear, Warm, Dry, Intact (Aria Ornelas B. MEDICAL OFFICE ADMINISTRATOR) Extremeties Extremities Exam: No Edema, Pedal Pulses Palpable (Sundeep Ornelason B. MEDICAL OFFICE ADMINISTRATOR) Neurologic Neuro Exam: Alert, Awake, Oriented, Speech Clear, Moving All Extremities (Aria Ornelas B. MEDICAL OFFICE ADMINISTRATOR) Psychiatric Psych Exam: Appropriate Responses (Aria Ornelas BTerrance RAIP) Assessment/Plan Discussed Condition With: Patient Assessment Summary: TREVOR/Acute Renal Failure, Hypertension, CKD Stage III Problem List: (1) Acute kidney injury superimposed on CKD ICD Codes: N17.9 - Acute kidney failure, unspecified; N18.9 - Chronic kidney disease, unspecified Plan: TREVOR on CKD 3, Baseline creatinine 1.7; Most likely has nephrosclerosis due to HTN TREVOR most likely due to renal hypoperfusion resulting from hypotension and also bradycardia. She was also given multiple doses of NSAIDS. Renal US was negative UA unremarkable Her renal function has improved Excellent urine output, remove mccray Stop IVF, tolerating oral fluids and BP has improved Avoid nephrotoxic agents (2) Anemia ICD Codes: D64.9 - Anemia, unspecified Plan: 400 ml EBL during surgery Hb improved after transfusion yesterday (3) Thoracic stenosis ICD Codes: M48.04 - Spinal stenosis, thoracic region Plan: Neurosurgery following Pain control, will give lidocaine patch, PT/OT Follow neurovascular status Plan We will sign off at this time. Please call us if needed. (Aria Ornelas) Plan patient was seen and examined. Agree with above assessment and plan. (Daryl Brewster MD) Aria Ornelas Nov 15, 2017 11:59 Daryl Brewster MD Nov 15, 2017 15:57
[2017-11-15] MEDS ORDERED: LIDOCAINE T-DERMAL SCH (12:00)
[2017-11-15] MEDS ORDERED: TETRACAINE T-DERMAL SCH (12:00)
--- NOTE | 2017-11-15 15:30 | HHI.CCPN ---
Subjective Remarks/Hospital Course Patient is a 72-year-old female with past medical history significant for COPD, chronic kidney disease, atrial fibrillation, severe spinal stenosis was admitted to Dr. Francois's service and underwent T11-12 decompressive laminectomy, a L1-2 bilateral decompressive semi-hemilaminectomy with discectomy , interbody fusion and PEEK cage, and a bilateral T10-L2 posterior lateral fusion and posterior spinal instrumentation with revision of previous L2-3 instrumentation. Post-operatively she was admitted to the [facility]. Today a.m. patient was found to be hypotensive systolic blood pressure in the 70s. Patient was given 500 mL normal saline bolus apparently resulted in hypoxemia and shortness of breath. Oxygen saturation decreased to 83-85%. Oxygen by nasal cannula was increased to 6 L, and fluid bolus was discontinued. Critical care medicine was consulted for hypotension and hypoxemia. A stat chest x-ray shows new left lower lobe infiltrate Dr. Sang Rodriguez evaluated the patient in the [facility]. Patient is dyspneic, hypotensive, in moderate distress. She is able to talk. Patient is bradycardic in slow A. fib. History of A. fib ablation by Dr. Skinner in the past. I will discontinue IV fluids and start on Dopamine to maintain map above 65, HR >50. Start IV Solu- Medrol 60 mg every 8 hours and DuoNeb scheduled and when necessary for COPD exacerbation. Also started on Zosyn renally dosed for probable healthcare associated pneumonia. Panculture, lactic acid and ABG ordered. Use BiPAP as needed. Hemoglobin came back 7 on 11/12/17 it was 9.9. Transfuse 2 units of PRBC Subjective 11/15: Currently resting currently in bed. Pain with movement. Received as needed hydromorphone and methocarbamol today. On low-dose nasal cannula to maintain saturations greater than equal to 92%. Currently normal sinus rhythm. Objective Vital Signs Date Time Temp Pulse Resp B/P (MAP) Pulse Ox O2 Delivery O2 Flow Rate FiO2 11/15/17 14:00 68 11/15/17 08:00 99.4 30 145/67 (93) 98 11/15/17 07:30 Nasal Cannula 4.00 Intake and Output 11/15/17 11/15/17 11/16/17 08:00 16:00 00:00 Intake Total 1656.2 ml Output Total 2415 ml Balance -758.8 ml Result Diagram: 11/15/17 0341 11/15/17 0341 Other Results Microbiology Date/Time Source Procedure Growth Status 11/14/17 14:16 Blood Peripheral Aerobic Blood Culture - Preliminary NO GROWTH IN 1 DAY Resulted 11/14/17 14:16 Blood Peripheral Anaerobic Blood Culture - Preliminary NO GROWTH IN 1 DAY Resulted 11/15/17 00:00 Urine Catheterized Urine Urine Culture Pending Received Imaging Last Impressions Renal Ultrasound 11/14/17 0000 Signed Impressions: Service Date/Time: October 13:38 - CONCLUSION: 1. Slight increase cortical echogenicity in both kidneys with preserved size characteristic of possible mild, acute medical renal disease. 2. Otherwise negative. No hydronephrosis or nephrolithiasis. Urinary bladder is decompressed. Addison Moya MD Chest X-Ray 11/14/17 0000 Signed Impressions: Service Date/Time: October 11:17 - CONCLUSION: Question of small infiltrate left lung base. Tenzin Walters MD Thoracolumbar Spine 11/12/17 0000 Signed Impressions: Service Date/Time: Sunday, November 12, 2017 09:59 - CONCLUSION: Intraoperative images. Jay Mariscal MD Objective Remarks GEN: 72-year-old female resting in bed in no acute distress HEAD: Atraumatic. Normocephalic NECK: Supple. Thyroid not enlarged, no neck masses. LUNGS: Air entry equal bilaterally, symmetrical excursion. HEART: RRR. S1, S2 no S4. ABDOMEN: Soft, nontender no organomegaly MSK: Surgical dressing on the back intact single drain with serosanguineous drainage with FRED -65 cc EXTREMITIES: Warm and well-perfused. No edema. NEUROLOGIC: Alert awake oriented no focal deficits cranial nerves II through grossly intact. Strength is equal symmetric. Normal sensation. A/P Assessment and Plan NEURO/PSYCH: Postop day #1 T11 12 decompressive laminectomy, medial facetectomy for spinal cord decompression, L1-2 bilateral decompressive semi-hemilaminectomy, Saenz- Guerrier osteotomy, L1-2 discectomy, interbody fusion,PEEK cage, lamina autograft bone, demineralized bone and stem cell matrix, cancellus bone chips., bilateral T10-L2 posterior lateral fusion with lamina autograft, demineralized bone and stem cell matrix, cancellus bone chips and bilateral T10-L3 posterior spinal instrumentation, revision previous L2-3 instrumentation. secondary to severe T11-12 stenosis, thoracic myelopathy, L1-2 adjacent level degeneration above previous L2-5 fusion and thoracolumbar acquired sagittal deformity Hydrocodone/acetaminophen 5/325 one tablet every 6 hours when necessary pain 3- 5. Hydrocodone/acetaminophen 10/325 tablet every 4 hours when necessary pain 6- 10 As needed hydromorphone 0.5 mill grams every 4 hours when necessary pain Received methocarbamol 1 today FRED -[address] Francois/neurosurgery Continue gabapentin 300 mg twice a day/home medication RESP: History COPD Acute respiratory insufficiency - Nasal cannula oxygen, titrated to keep oxygen saturation more than 92% - IV methylprednisolone 60 mg every 8 hours Albuterol/ipratropium aerosols every 6 hours scheduled and when necessary albuterol aerosols every 2 hours Follow-up on chest x-ray in a.m. CV: Atrial fibrillation slowly currently normal sinus rhythm Atrial fibrillation History of coronary artery disease History of peripheral arterial disease Hypertension Dyslipidemia - Received normal saline for normal bolus but patient became short of breath and this was discontinued - Discontinue IV furosemide due to worsening renal function on 10 mg by mouth daily at home - Holding baby aspirin 81 mg daily. Resume with neurosurgery - Cardiology consult regarding slow A. fib, with hypotension - We start low-dose diltiazem 30 mg every 6 hours. At home on diltiazem 180 mg twice a day Holding atorvastatin 20 by mouth daily for dyslipidemia. Resume when clinically indicated Echocardiogram - The left ventricular systolic function is normal with an estimated ejection fraction in the range of 55-60%. Wall thickness is normal. Normal left ventricular size. There is moderate tricuspid regurgitation. The estimated pulmonary arterial pressure is 47 mmHg. [id number] mitral valve regurgitation. GI: - Heart healthy diet - Pantoprazole for GI prophylaxis/home medication 40 mg daily - Docusate sodium 1 tablet twice a day for bowel regimen Renal/: Acute on chronic kidney disease stage III - Monitor renal function closely. Hi catheter. - Patient has chronic kidney disease most likely worsened by ATN. Creatinine slowly normalizing. ID: - Chest x-ray shows left lower lobe infiltrate -UA revealed positive UTI. Started on piperacillin/tazobactam - Blood cultures 11/14 no growth HEME: Normocytic anemia - Monitor CBC, CMP - 2U PRBC Stat for Hb 7 with hypotension 11/14. Currently around 10. ENDO: - Electrolyte replacement as needed Fine scale insulin not belong to maintain euglycemia PROPH: - Bilateral lower extremity SCDs/LATONYA. Avoid chemical DVT prophylaxis due to back surgery surgery, and anemia LINES: - Utilize peripheral IVs, central line if needed for pressors Level II follow-up Alonso Ozuna MD Nov 15, 2017 15:30
--- NOTE | 2017-11-15 15:41 | ECHRPT ---
Indication: Persistent atrial fibrillation CONCLUSIONS The left ventricular systolic function is normal with an estimated ejection fraction in the range of 55-60%. Wall thickness is normal. Normal left ventricular size. There is moderate tricuspid regurgitation. The estimated pulmonary arterial pressure is 47 mmHg. Shbl-xy-[id number] mitral valve regurgitation. BP: 95 / 50 HR: 74 Rhythm: Sinus MEASUREMENTS (Male / Female) Normal Values Technical Quality:Good 2D ECHO LV Diastolic Diameter PLAX 5.6 cm 4.2 - 5.9 / 3.9 - 5.3 cm LV Systolic Diameter PLAX 4.3 cm IVS Diastolic Thickness 1.0 cm 0.6 - 1.0 / 0.6 - 0.9 cm LVPW Diastolic Thickness 1.0 cm 0.6 - 1.0 / 0.6 - 0.9 cm LV Relative Wall Thickness 0.4 LVOT Diameter 2.1 cm M-MODE Aortic Root Diameter MM 3.3 cm LA Systolic Diameter MM 3.7 cm LA Ao Ratio MM 1.1 AV Cusp Separation MM 2.1 cm DOPPLER AV Peak Velocity 198.0 cm/s AV Peak Gradient 15.7 mmHg LVOT Peak Velocity 170.0 cm/s LVOT Peak Gradient 11.6 mmHg AV Area Cont Eq pk 3.0 cm MR Peak Velocity 568.0 cm/s MR Peak Gradient 129.1 mmHg Mitral E Point Velocity 121.0 cm/s Mitral A Point Velocity 134.0 cm/s Mitral E to A Ratio 0.9 LV E' Lateral Velocity 12.6 cm/s Mitral E to LV E' Lateral Ratio 9.6 LV E' Septal Velocity 6.3 cm/s Mitral E to LV E' Septal Ratio 19.1 TR Peak Velocity 303.0 cm/s TR Peak Gradient 36.7 mmHg Right Atrial Pressure 10.0 mmHg Pulmonary Artery Systolic Pressu 46.7 mmHg Right Ventricular Systolic Press 46.7 mmHg PV Peak Velocity 147.0 cm/s PV Peak Gradient 8.6 mmHg FINDINGS LEFT VENTRICLE The left ventricular systolic function is normal with an estimated ejection fraction in the range of 55-60%. Wall thickness is normal. Normal left ventricular size. RIGHT VENTRICLE Normal right ventricular size and systolic function. LEFT ATRIUM The left atrial size is normal. RIGHT ATRIUM The right atrial size is normal. ATRIAL SEPTUM Normal atrial septal thickness without atrial level shunting by limited color doppler interrogation. AORTA The aortic root and proximal ascending aorta are normal in size on limited imaging. MITRAL VALVE Wubp-et-khensjih mitral valve regurgitation. AORTIC VALVE Trileaflet aortic valve. No aortic valve stenosis or regurgitation. TRICUSPID VALVE There is moderate tricuspid regurgitation. The estimated pulmonary arterial pressure is 46.7 mmHg. PULMONARY VALVE Trace pulmonary valve regurgitation. VESSELS The inferior vena cava is normal in size. PERICARDIUM No pericardial effusion. Princess Beckett MD, FACC (Electronically Signed) Final Date:15 November 2017 15:40
[2017-11-15] MEDS ORDERED: RESP: ALBUTEROL 2.5 MG/3 ML NEB (PRN) NEB (16:30)
[2017-11-15] MEDS ORDERED: cefTRIAXone INJ 1,000 MG in SODIUM CHLORIDE 0.9% INJ 100 ML IV SCH (16:30)
[2017-11-15] MEDS: DILTIAZEM HCL 30 MG TAB PO SCH ×2 (18:09→21:29)
--- NOTE | 2017-11-15 21:42 | PQ ---
Physician Query Response Document PATIENT: RANDI RAMOS : 1945 ADMIT DATE: 11/12/2017 5:47 AM DISCH DATE: RESPONDING PROVIDER #: sjohn QUERY TEXT: Anemia Type Anemia is documented in the Medical Record. Please specify the cause (includes suspected or probable cause) Such as: -- Due to acute blood loss -- Due to chronic blood loss -- Due to iron deficiency -- Due to postoperative blood loss -- Due to chronic disease -- Other, please specify The patient's Clinical Indicators include: hypotension post op req dopamine and her renal function consult note /3:12 PM cardiology She is quite anemic and is due to receive some blood. I suspect that and further fluid administration will probably help with her renal function as well ESTIMATED BLOOD LOSS 400ML surgical Query created by: Kay Lopez on 11/15/2017 8:27 AM RESPONSE TEXT: Anemia due to acute blood loss Electronically signed by: Perri Rodriguez MD 11/15/2017 9:38 PM
--- NOTE | 2017-11-15 23:42 | EKG ---
Date Performed: 11/14/2017 Time Performed: 12:12:26 PTAGE: 72 years EKG: Probable junctional rhythm. Lead(s) unsuitable for analysis: V6 Poor R wave progression - p robable normal variant Inferior and septal T wave changes are nonspecific Abnormal ECG PREVIOUS TRACING : 11/12/2017 06.34 Compared to the previous tracing, previously Sinus rhythm DOCTOR: Joey Chery Interpretating Date/Time 11/15/2017 23:40:15
[2017-11-16] VITALS (14 sets, daily range): BP systolic 146–184; BP diastolic 69–84; PULSE 58–84; RESP 13–29; TEMP 97.3–98.1; O2SAT 91–98
[2017-11-16] MEDS: HYDROmorphone HCL PF 2 MG/ML VIAL IV PRN ×2 (01:13→15:00)
[2017-11-16] MEDS: RESP: ALBUTEROL 2.5 MG/IPRATROPIUM 0.5 MG NEB (SCH) NEB ×4 (02:28→21:08)
[2017-11-16] MEDS: HYDROmorphone HCL PCA 6 MG/30 ML IV SCH (02:31)
[2017-11-16] MEDS: PIPERACIL-TAZO 3.375 GM PREMIX 50 ML IV SCH ×3 (04:48→20:54)
[2017-11-16] MEDS: methylPREDNISolone SOD SUCC 125 MG/2 ML VIAL IV PUSH SCH ×3 (05:48→20:54)
[2017-11-16 05:56] LABS: AUTOMATED NEUTROPHIL # 8.9 TH/MM3 (1.8-7.7); BASOPHIL % 0.1 % (0.0-2.0); HEMATOCRIT 29.3 % (35.0-46.0); HEMOGLOBIN 10.1 GM/DL (11.6-15.3); LYMPH % 5.5 % (9.0-44.0); LYMPHOCYTE # 0.5 TH/MM3 (1.0-4.8); MEAN CELL VOLUME 86.4 FL (80.0-100.0); MEAN CORPUSCULAR HEMOGLOBIN 29.8 PG (27.0-34.0); MEAN CORPUSCULAR HGB CONC 34.5 % (32.0-36.0); MEAN PLATELET VOLUME 8.7 FL (7.0-11.0); MONO % 4.3 % (0.0-8.0); MONOCYTE # 0.4 TH/MM3 (0-0.9); NEUT % 90.1 % (16.0-70.0); PLATELET COUNT 198 TH/MM3 (150-450); RED BLOOD COUNT 3.39 MIL/MM3 (4.00-5.30); RED CELL DISTRIBUTION WIDTH 15.9 % (11.6-17.2); WHITE BLOOD COUNT 9.8 TH/MM3 (4.0-11.0)
[2017-11-16] MEDS: PCA - TOTAL MG DILAUDID DELIVERED PER SHIFT OTHER SCH ×4 (06:00→22:00)
[2017-11-16 06:19] LABS: BICARBONATE 30.7 MEQ/L (21.0-32.0); CALCIUM 8.5 MG/DL (8.5-10.1); CREATININE 1.08 MG/DL (0.50-1.00); MAGNESIUM 2.2 MG/DL (1.5-2.5)
[2017-11-16] MEDS: INSULIN NovoLIN REGULAR SUPPLEMENTAL SCALE SQ SCH ×4 (08:00→20:53)
[2017-11-16] MEDS: GABAPENTIN 300 MG CAP PO SCH ×2 (08:41→20:53)
[2017-11-16] MEDS: DILTIAZEM HCL 30 MG TAB PO SCH (08:41)
[2017-11-16] MEDS: MULTIVITAMINS/MINERALS THERAPEUTIC TAB PO SCH ×2 (08:41→20:53)
[2017-11-16] MEDS: CALCIUM/VITAMIN D 250 MG/125 U TAB PO SCH ×2 (08:41→20:53)
[2017-11-16] MEDS: DOCUSATE SODIUM 100 MG CAP PO SCH ×2 (08:41→20:53)
[2017-11-16] MEDS: PANTOPRAZOLE SOD 40 MG DELAYED RELEASE TAB PO SCH (08:41)
--- NOTE | 2017-11-16 08:41 | HHI.CCPN ---
Subjective Remarks/Hospital Course Patient is a 72-year-old female with past medical history significant for COPD, chronic kidney disease, atrial fibrillation, severe spinal stenosis was admitted to Dr. Francois's service and underwent T11-12 decompressive laminectomy, a L1-2 bilateral decompressive semi-hemilaminectomy with discectomy , interbody fusion and PEEK cage, and a bilateral T10-L2 posterior lateral fusion and posterior spinal instrumentation with revision of previous L2-3 instrumentation. Post-operatively she was admitted to the [facility]. Today a.m. patient was found to be hypotensive systolic blood pressure in the 70s. Patient was given 500 mL normal saline bolus apparently resulted in hypoxemia and shortness of breath. Oxygen saturation decreased to 83-85%. Oxygen by nasal cannula was increased to 6 L, and fluid bolus was discontinued. Critical care medicine was consulted for hypotension and hypoxemia. A stat chest x-ray shows new left lower lobe infiltrate Dr. Sang Rodriguez evaluated the patient in the [facility]. Patient is dyspneic, hypotensive, in moderate distress. She is able to talk. Patient is bradycardic in slow A. fib. History of A. fib ablation by Dr. Skinner in the past. I will discontinue IV fluids and start on Dopamine to maintain map above 65, HR >50. Start IV Solu- Medrol 60 mg every 8 hours and DuoNeb scheduled and when necessary for COPD exacerbation. Also started on Zosyn renally dosed for probable healthcare associated pneumonia. Panculture, lactic acid and ABG ordered. Use BiPAP as needed. Hemoglobin came back 7 on 11/12/17 it was 9.9. Transfuse 2 units of PRBC 11/15: Currently resting currently in bed. Pain with movement. Received as needed hydromorphone and methocarbamol today. On low-dose nasal cannula to maintain saturations greater than equal to 92%. Currently normal sinus rhythm. Subjective 11/16: Currently resting in bed in no acute distress. Requesting to go to the bathroom. Heart rate better control. 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 Objective Vital Signs Date Time Temp Pulse Resp B/P (MAP) Pulse Ox O2 Delivery O2 Flow Rate FiO2 11/16/17 06:00 72 11/16/17 04:00 98.1 21 155/74 (101) 97 11/15/17 21:28 Nasal Cannula 2.00 Intake and Output 12/23/17 12/23/17 12/24/17 08:00 16:00 00:00 Intake Total 770 ml Output Total 808 ml Balance -38 ml Result Diagram: 11/16/17 0433 11/16/17 0433 Other Results Microbiology Date/Time Source Procedure Growth Status 11/14/17 14:16 Blood Peripheral Aerobic Blood Culture - Preliminary NO GROWTH IN 1 DAY Resulted 11/14/17 14:16 Blood Peripheral Anaerobic Blood Culture - Preliminary NO GROWTH IN 1 DAY Resulted 11/15/17 00:00 Urine Catheterized Urine Urine Culture Pending Received Imaging Last Impressions Renal Ultrasound 11/14/17 0000 Signed Impressions: Service Date/Time: October 13:38 - CONCLUSION: 1. Slight increase cortical echogenicity in both kidneys with preserved size characteristic of possible mild, acute medical renal disease. 2. Otherwise negative. No hydronephrosis or nephrolithiasis. Urinary bladder is decompressed. Addison Moya MD Chest X-Ray 11/14/17 0000 Signed Impressions: Service Date/Time: October 11:17 - CONCLUSION: Question of small infiltrate left lung base. Tenzin Walters MD Thoracolumbar Spine 11/12/17 0000 Signed Impressions: Service Date/Time: Sunday, November 12, 2017 09:59 - CONCLUSION: Intraoperative images. Jay Mariscal MD Objective Remarks GEN: 72-year-old female resting in bed in no acute distress HEAD: Atraumatic. Normocephalic NECK: Supple. Thyroid not enlarged, no neck masses. LUNGS: Air entry equal bilaterally, symmetrical excursion. HEART: RRR. S1, S2 no S4. ABDOMEN: Soft, nontender no organomegaly MSK: Surgical dressing on the back intact single drain with serosanguineous drainage with FRED -168 cc EXTREMITIES: Warm and well-perfused. No edema. NEUROLOGIC: Alert awake oriented no focal deficits cranial nerves II through grossly intact. Strength is equal symmetric. Normal sensation. A/P Assessment and Plan NEURO/PSYCH: Postop day #2 T11 12 decompressive laminectomy, medial facetectomy for spinal cord decompression, L1-2 bilateral decompressive semi-hemilaminectomy, Saenz- Guerrier osteotomy, L1-2 discectomy, interbody fusion,PEEK cage, lamina autograft bone, demineralized bone and stem cell matrix, cancellus bone chips., bilateral T10-L2 posterior lateral fusion with lamina autograft, demineralized bone and stem cell matrix, cancellus bone chips and bilateral T10-L3 posterior spinal instrumentation, revision previous L2-3 instrumentation. secondary to severe T11-12 stenosis, thoracic myelopathy, L1-2 adjacent level degeneration above previous L2-5 fusion and thoracolumbar acquired sagittal deformity Hydrocodone/acetaminophen 5/325 one tablet every 6 hours when necessary pain 3- 5. Hydrocodone/acetaminophen 10/325 tablet every 4 hours when necessary pain 6- 10 As needed hydromorphone 0.5 mill grams every 4 hours when necessary pain Received methocarbamol as needed FRED -[address] Francois/neurosurgery Continue gabapentin 300 mg twice a day/home medication RESP: History COPD Acute respiratory insufficiency - Nasal cannula oxygen, titrated to keep oxygen saturation more than 92% - IV methylprednisolone 60 mg every 8 hours Albuterol/ipratropium aerosols every 6 hours scheduled and when necessary albuterol aerosols every 2 hours CV: Atrial fibrillation slowly currently normal sinus rhythm Atrial fibrillation History of coronary artery disease History of peripheral arterial disease Hypertension Dyslipidemia - Received normal saline for normal bolus but patient became short of breath and this was discontinued - Discontinue IV furosemide due to worsening renal function on 10 mg by mouth daily at home - Holding baby aspirin 81 mg daily. Resume with neurosurgery - Cardiology consult regarding slow A. fib, with hypotension - We start low-dose diltiazem 30 mg every 6 hours. Will increase to 60 mg every 6 hours. At home on diltiazem 180 mg twice a day Holding atorvastatin 20 by mouth daily for dyslipidemia. Resume when clinically indicated Echocardiogram - The left ventricular systolic function is normal with an estimated ejection fraction in the range of 55-60%. Wall thickness is normal. Normal left ventricular size. There is moderate tricuspid regurgitation. The estimated pulmonary arterial pressure is 47 mmHg. [id number] mitral valve regurgitation. GI: - Heart healthy diet - Pantoprazole for GI prophylaxis/home medication 40 mg daily - Docusate sodium 1 tablet twice a day for bowel regimen Renal/: Acute on chronic kidney disease stage III - Monitor renal function closely. Hi catheter. - Patient has chronic kidney disease most likely worsened by ATN. Creatinine slowly normalizing. ID: - Chest x-ray shows left lower lobe infiltrate -UA revealed positive UTI. Started on piperacillin/tazobactam - Blood cultures 11/14 no growth HEME: Normocytic anemia - Monitor CBC, CMP - 2U PRBC Stat for Hb 7 with hypotension 11/14. Currently around 10. ENDO/FEN: Hypokalemia Low TSH - Electrolyte replacement as needed - 60 mEq KCl 1 today. Continue sliding scale insulin not belong to maintain euglycemia Check free T4/T3. Might need evaluation for methimazole/PTU prior to discharge PROPH: - Bilateral lower extremity SCDs/LATONYA. Avoid chemical DVT prophylaxis due to back surgery surgery, and anemia LINES: - Utilize peripheral IVs, central line if needed for pressors Level II follow-up. Okay to transfer out of ICU from our standpoint. Alonso Ozuna MD Nov 16, 2017 08:41
[2017-11-16] MEDS ORDERED: hydrALAZINE HCL 20 MG/ML VIAL IV PUSH PRN (08:45)
[2017-11-16] MEDS ORDERED: LABETALOL HCL 100 MG/20 ML VIAL IV PUSH ONE (08:45)
[2017-11-16] MEDS: DILTIAZEM HCL 60 MG TAB PO SCH ×4 (09:06→20:53)
[2017-11-16] MEDS: POTASSIUM CHLORIDE 20 MEQ PWD PACKET PO SCH ×2 (09:06→20:52)
--- NOTE | 2017-11-16 09:06 | RADRPT ---
EXAM DATE/TIME: 11/16/2017 08:38 [facility] COMPARISON: CHEST SINGLE AP, November 14, 2017, 11:17. INDICATIONS : Cough starting today MEDICAL HISTORY : None. SURGICAL HISTORY : None. ENCOUNTER: Initial ACUITY: 1 day PAIN SCORE: 0/10 LOCATION: Bilateral chest FINDINGS: Elevation right hemidiaphragm Minimal parenchymal changes left base, improved Mild compensated cardiomegaly Previous spinal surgery lumbar spine. CONCLUSION: Minimal parenchymal changes left base, improved in the interval. Garo Mejia MD FACR on November 16, 2017 at 9:01 Board Certified Radiologist. This report was verified electronically.
--- NOTE | 2017-11-16 09:10 | HHI.NSPN ---
History Chief Complaint: Hurting all over. Interval History 11/12: The patient presented to [facility] for a T11-12 decompressive laminectomy, a L1-2 bilateral decompressive semi-hemilaminectomy with discectomy , interbody fusion and PEEK cage, and a bilateral T10-L2 posterior lateral fusion and posterior spinal instrumentation with revision of previous L2-3 instrumentation. Post-operatively she was admitted to the ISC unit for further monitoring and care. 11/13: The patient is seen in rounds this morning with Dr Francois. She is awake and alert and visiting with her . She states that she is hurting to her back but her feet are less numb than they were. 11/14: This morning the patient is awake and alert when seen. She says she is doing good although she has soreness to her back. She denies any pain, numbness , tingling or weakness to the extremities but then qualifies that when examined and says the toes are still numb but better than before surgery. She remains on a CONICAL MIXER pump for pain control. She was given an extra dose of furosemide for decreased urine output and renal function. 11/15: The patient yesterday became hypotensive after using the CONICAL MIXER pump and receiving furosemide. She was being given a bolus of normal saline and had received approximately 200 mL when she developed dyspnea. The flow rate on her nasal cannula was increased, the saline bolus was stopped and a neb treatment ordered. The patient was discussed with the Financial Aid Advisor who evaluated her. A chest x-ray demonstrated a left lower lobe infiltrate and he began treatment for pneumonia. Due to a downward trend in her haemoglobin and her being symptomatic she was transfused two units of PRBCs. Nephrology and Cardiology were consulted by the Financial Aid Advisor and also evaluated her yesterday. This morning when seen the patient is awake and alert. Her is setting up her breakfast tray. She states that she hurts all over, especially to the back. Nursing reports that the dressing to the patient's back was changed three times yesterday but none at night. 11/16: Pt awake and alert. Complains of incisional soreness. No radiculopathy in UE or LEs. Some extension of incisional pain into the ribs. No chest pain or sob. No abdominal pain. No paresthesias in UEs or LEs. Review of Systems General: Negative for: fever, chills, insomnia Respiratory: Negative for: shortness of breath, cough, sputum Cardiovascular: Negative for: chest pain Gastrointestinal: Negative for: nausea, vomitting, diarrhea, constipation Exam Results Vital Signs Date Time Temp Pulse Resp B/P (MAP) Pulse Ox O2 Delivery O2 Flow Rate FiO2 11/16/17 06:00 72 11/16/17 04:00 98.1 21 155/74 (101) 97 11/15/17 21:28 Nasal Cannula 2.00 Intake and Output 11/16/17 11/16/17 11/17/17 08:00 16:00 00:00 Intake Total 770 ml Output Total 808 ml Balance -38 ml Physical Examination GENERAL: Awake & alert in bed, readily interacts, normal affect, no apparent distress. RESPIRATORY: CTAB w/o W/R/R, equal excursion, nonlaboured, on NC. CARDIOVASCULAR: NSR no murmurs. GASTROINTESTINAL: Abdomen, soft, nontender, bowel sounds not appreciated. MUSCULOSKELETAL: Moves all 4 extremities with 5/5 strength. NEUROLOGICAL: Pt awake and alert. Follows commands well. Speech clear and appropriate. Pupils equal. Face symmetric. Lab, Micro, Other Results Last Impressions Renal Ultrasound 11/14/17 0000 Signed Impressions: Service Date/Time: October 13:38 - CONCLUSION: 1. Slight increase cortical echogenicity in both kidneys with preserved size characteristic of possible mild, acute medical renal disease. 2. Otherwise negative. No hydronephrosis or nephrolithiasis. Urinary bladder is decompressed. Addison Moya MD Chest X-Ray 11/14/17 0000 Signed Impressions: Service Date/Time: October 11:17 - CONCLUSION: Question of small infiltrate left lung base. Tenzin Walters MD Thoracolumbar Spine 11/12/17 0000 Signed Impressions: Service Date/Time: Sunday, November 12, 2017 09:59 - CONCLUSION: Intraoperative images. Jay Mariscal MD Laboratory Tests Test 11/16/17 04:33 White Blood Count 9.8 TH/MM3 Red Blood Count 3.39 MIL/MM3 Hemoglobin 10.1 GM/DL Hematocrit 29.3 % Mean Corpuscular Volume 86.4 FL Mean Corpuscular Hemoglobin 29.8 PG Mean Corpuscular Hemoglobin Concent 34.5 % Red Cell Distribution Width 15.9 % Platelet Count 198 TH/MM3 Mean Platelet Volume 8.7 FL Neutrophils (%) (Auto) 90.1 % Lymphocytes (%) (Auto) 5.5 % Monocytes (%) (Auto) 4.3 % Eosinophils (%) (Auto) 0.0 % Basophils (%) (Auto) 0.1 % Neutrophils # (Auto) 8.9 TH/MM3 Lymphocytes # (Auto) 0.5 TH/MM3 Monocytes # (Auto) 0.4 TH/MM3 Eosinophils # (Auto) 0.0 TH/MM3 Basophils # (Auto) 0.0 TH/MM3 CBC Comment DIFF FINAL Differential Comment Blood Urea Nitrogen 27 MG/DL Creatinine 1.08 MG/DL Random Glucose 134 MG/DL Calcium Level 8.5 MG/DL Phosphorus Level 3.0 MG/DL Magnesium Level 2.2 MG/DL Sodium Level 139 MEQ/L Potassium Level 3.2 MEQ/L Chloride Level 101 MEQ/L Carbon Dioxide Level 30.7 MEQ/L Anion Gap 7 MEQ/L Estimat Glomerular Filtration Rate 50 ML/MIN Thyroid Stimulating Hormone 3rd Gen 0.087 uIU/ML Medical Decision Making Impression and Plan A: 72 y/o FM Preoperative Diagnosis: (1) Thoracic stenosis (2) Thoracic myelopathy (3) Lumbar degenerative disc disease 1. Severe T11-12 stenosis 2. Thoracic myelopathy 3. L1-2 adjacent level degeneration above previous L2-5 fusion 4. Thoracolumbar acquired sagittal deformity () s/p: 1. T11 12 decompressive laminectomy, medial facetectomy for spinal cord decompression 2. L1-2 bilateral decompressive semi-hemilaminectomy, Saenz-Guerrier osteotomy 3. L1-2 discectomy, interbody fusion,PEEK cage, lamina autograft bone, demineralized bone and stem cell matrix, cancellus bone chips. 4. Bilateral T10-L2 posterior lateral fusion with lamina autograft, demineralized bone and stem cell matrix, cancellus bone chips 5. Bilateral T10-L3 posterior spinal instrumentation, revision previous L2-3 instrumentation. Plan: D/C FRED drain and place steristip. OOB with brace on with PT Neurosurgically stable to go to floor, please consult medicine for assistance when pt on floor. Suleiman Gates Nov 16, 2017 9:10 am
[2017-11-16] MEDS: ENALAPRILAT 1.25 MG/ML VIAL IV PUSH PRN (09:40)
[2017-11-16] MEDS: METHOCARBAMOL 500 MG TAB PO PRN (17:42)
[2017-11-17] VITALS (10 sets, daily range): BP systolic 142–185; BP diastolic 81–92; PULSE 69–128; RESP 18–22; TEMP 97.2–98; O2SAT 91–95
[2017-11-17] MEDS: METHOCARBAMOL 500 MG TAB PO PRN (02:06)
[2017-11-17] MEDS: ENALAPRILAT 1.25 MG/ML VIAL IV PUSH PRN (02:06)
[2017-11-17] MEDS: RESP: ALBUTEROL 2.5 MG/IPRATROPIUM 0.5 MG NEB (SCH) NEB ×2 (03:32→10:03)
[2017-11-17] MEDS: PIPERACIL-TAZO 3.375 GM PREMIX 50 ML IV SCH (05:29)
[2017-11-17] MEDS: methylPREDNISolone SOD SUCC 125 MG/2 ML VIAL IV PUSH SCH (05:29)
[2017-11-17] MEDS: PCA - TOTAL MG DILAUDID DELIVERED PER SHIFT OTHER SCH ×3 (05:30→22:40)
[2017-11-17 06:49] LABS: HEMATOCRIT 33.1 % (35.0-46.0); HEMOGLOBIN 11.2 GM/DL (11.6-15.3); MEAN CORPUSCULAR HEMOGLOBIN 29.8 PG (27.0-34.0); MEAN CORPUSCULAR HGB CONC 33.9 % (32.0-36.0); MEAN PLATELET VOLUME 8.9 FL (7.0-11.0); PLATELET COUNT 235 TH/MM3 (150-450); RED BLOOD COUNT 3.76 MIL/MM3 (4.00-5.30); RED CELL DISTRIBUTION WIDTH 16.3 % (11.6-17.2); WHITE BLOOD COUNT 9.2 TH/MM3 (4.0-11.0)
[2017-11-17 07:07] LABS: BICARBONATE 30.4 MEQ/L (21.0-32.0); CALCIUM 9.2 MG/DL (8.5-10.1); CREATININE 1.13 MG/DL (0.50-1.00)
[2017-11-17 07:15] LABS: FREE T3 1.41 PG/ML (2.18-3.98); FREE T4 0.93 NG/DL (0.76-1.46)
[2017-11-17] MEDS: DOCUSATE SODIUM 100 MG CAP PO SCH ×2 (07:39→21:42)
[2017-11-17] MEDS: DILTIAZEM HCL 60 MG TAB PO SCH (07:39)
[2017-11-17] MEDS: MULTIVITAMINS/MINERALS THERAPEUTIC TAB PO SCH ×2 (07:39→21:41)
[2017-11-17] MEDS: CALCIUM/VITAMIN D 250 MG/125 U TAB PO SCH ×2 (07:39→21:41)
[2017-11-17] MEDS: PANTOPRAZOLE SOD 40 MG DELAYED RELEASE TAB PO SCH (07:39)
[2017-11-17] MEDS: GABAPENTIN 300 MG CAP PO SCH ×2 (07:39→21:42)
[2017-11-17] MEDS: HYDROmorphone HCL PCA 6 MG/30 ML IV SCH ×2 (07:45→22:39)
[2017-11-17] MEDS: INSULIN NovoLIN REGULAR SUPPLEMENTAL SCALE SQ SCH ×4 (07:50→21:00)
--- NOTE | 2017-11-17 09:20 | HHI.PR ---
Subjective Remarks This is a 72-year-old female with past medical history significant for COPD, chronic kidney disease, atrial fibrillation, severe spinal stenosis was admitted to Dr. Francois's service and underwent T11-12 decompressive laminectomy, a L1-2 bilateral decompressive semi-hemilaminectomy with discectomy , interbody fusion and PEEK cage, and a bilateral T10-L2 posterior lateral fusion and posterior spinal instrumentation with revision of previous L2-3 instrumentation. Post-operatively she was admitted to the [facility]. Patient was found to be hypotensive systolic blood pressure in the 70s. Patient was given 500 mL normal saline bolus apparently resulted in hypoxemia and shortness of breath. Oxygen saturation decreased to 83-85%. Oxygen by nasal cannula was increased to 6 L, and fluid bolus was discontinued. Critical care medicine was consulted for hypotension and hypoxemia. A stat chest x-ray shows new left lower lobe infiltrate Dr. Sang Rodriguez evaluated the patient in the [facility]. Patient is dyspneic, hypotensive, in moderate distress. She is able to talk. Patient is bradycardic in slow A. fib. History of A. fib ablation by Dr. Skinner in the past. Patient was started on Dopamine to maintain map above 65, HR >50. Start IV Solu-Medrol 60 mg every 8 hours and DuoNeb scheduled and when necessary for COPD exacerbation. Also started on Zosyn renally dosed for probable healthcare associated pneumonia. Hemoglobin came back 7 on 11/12/17-Transfuse 2 units of PRBC on 11/14. Patient is improving has been transferred out of ICU and we have been consulted for post operative hospital management. Objective Vitals Vital Signs Date Time Temp Pulse Resp B/P (MAP) Pulse Ox O2 Delivery O2 Flow Rate FiO2 11/17/17 08:14 97.7 69 20 177/85 (115) 93 11/17/17 07:54 Nasal Cannula 3.00 11/17/17 05:30 18 11/17/17 04:24 171/81 (111) 11/17/17 04:00 98.0 82 18 185/86 (119) 92 11/17/17 03:35 94 Nasal Cannula 2.00 11/16/17 23:05 97.4 67 20 184/77 (112) 93 11/16/17 22:00 20 11/16/17 21:08 91 Nasal Cannula 2.00 11/16/17 20:00 97.3 61 20 160/75 (103) 93 11/16/17 19:45 Nasal Cannula 3.00 11/16/17 18:00 73 11/16/17 16:00 58 11/16/17 16:00 97.6 76 14 157/72 (100) 93 11/16/17 14:00 62 11/16/17 14:00 14 11/16/17 12:00 97.7 64 20 146/69 (94) 92 11/16/17 12:00 61 11/16/17 11:01 92 Nasal Cannula 4.00 11/16/17 10:00 84 Result Diagram: 11/17/17 0504 11/17/17 0504 Other Results Laboratory Tests Test 11/14/17 11:56 11/14/17 12:30 11/14/17 14:16 11/15/17 00:00 White Blood Count 6.3 TH/MM3 7.5 TH/MM3 Red Blood Count 2.39 MIL/MM3 2.50 MIL/MM3 Hemoglobin 7.0 GM/DL 7.2 GM/DL Hematocrit 21.3 % 22.1 % Mean Corpuscular Volume 88.8 FL 88.3 FL Mean Corpuscular Hemoglobin 29.2 PG 28.9 PG Mean Corpuscular Hemoglobin Concent 32.9 % 32.7 % Red Cell Distribution Width 16.7 % 16.7 % Platelet Count 176 TH/MM3 192 TH/MM3 Mean Platelet Volume 8.4 FL 8.4 FL Neutrophils (%) (Auto) 74.1 % Lymphocytes (%) (Auto) 18.0 % Monocytes (%) (Auto) 7.3 % Eosinophils (%) (Auto) 0.4 % Basophils (%) (Auto) 0.2 % Neutrophils # (Auto) 4.7 TH/MM3 Lymphocytes # (Auto) 1.1 TH/MM3 Monocytes # (Auto) 0.5 TH/MM3 Eosinophils # (Auto) 0.0 TH/MM3 Basophils # (Auto) 0.0 TH/MM3 CBC Comment DIFF FINAL Differential Comment Prothrombin Time 10.5 SEC Prothromb Time International Ratio 1.0 RATIO Activated Partial Thromboplast Time 24.3 SEC Blood Urea Nitrogen 45 MG/DL Creatinine 2.21 MG/DL Random Glucose 117 MG/DL Total Protein 5.7 GM/DL Calcium Level 7.4 MG/DL Sodium Level 135 MEQ/L Potassium Level 3.9 MEQ/L Chloride Level 101 MEQ/L Carbon Dioxide Level 25.5 MEQ/L Anion Gap 9 MEQ/L Estimat Glomerular Filtration Rate 22 ML/MIN Protein Corrected Calcium 8.2 MG/DL Blood Gas Puncture Site RT BRACHIAL Blood Gas Patient Temperature 98.6 Blood Gas HCO3 22 mmol/L Blood Gas Base Excess -3.0 mmol/L Blood Gas Oxygen Saturation 91 % Arterial Blood pH 7.33 Arterial Blood Partial Pressure CO2 43 mmHg Arterial Blood Partial Pressure O2 71 mmHg Arterial Blood Oxygen Content 9.1 Vol % Arterial Blood Carboxyhemoglobin 1.5 % Arterial Blood Methemoglobin 0.9 % Blood Gas Hemoglobin 7.0 G/DL Oxygen Delivery Device NASAL CANNULA Blood Gas Liter Flow 6 L/M Lactic Acid Level 1.6 mmol/L Urine Color COLORLESS Urine Turbidity CLEAR Urine pH 5.0 Urine Specific Beatrice 1.006 Urine Protein NEG mg/dL Urine Glucose (UA) NEG mg/dL Urine Ketones NEG mg/dL Urine Occult Blood NEG Urine Nitrite NEG Urine Bilirubin NEG Urine Urobilinogen LESS THAN 2.0 MG/DL Urine Leukocyte Esterase NEG Urine RBC 1 /hpf Urine WBC LESS THAN 1 /hpf Urine Squamous Epithelial Cells <1 /hpf Urine Bacteria RARE /hpf Urine Mucus FEW /lpf Microscopic Urinalysis Comment CATH-CULTURE IND Test 11/15/17 03:41 11/16/17 04:33 11/17/17 05:04 White Blood Count 6.7 TH/MM3 9.8 TH/MM3 9.2 TH/MM3 Red Blood Count 3.66 MIL/MM3 3.39 MIL/MM3 3.76 MIL/MM3 Hemoglobin 10.8 GM/DL 10.1 GM/DL 11.2 GM/DL Hematocrit 31.6 % 29.3 % 33.1 % Mean Corpuscular Volume 86.1 FL 86.4 FL 88.0 FL Mean Corpuscular Hemoglobin 29.4 PG 29.8 PG 29.8 PG Mean Corpuscular Hemoglobin Concent 34.2 % 34.5 % 33.9 % Red Cell Distribution Width 15.9 % 15.9 % 16.3 % Platelet Count 172 TH/MM3 198 TH/MM3 235 TH/MM3 Mean Platelet Volume 8.5 FL 8.7 FL 8.9 FL Blood Urea Nitrogen 42 MG/DL 27 MG/DL 36 MG/DL Creatinine 1.58 MG/DL 1.08 MG/DL 1.13 MG/DL Random Glucose 142 MG/DL 134 MG/DL 126 MG/DL Calcium Level 8.5 MG/DL 8.5 MG/DL 9.2 MG/DL Sodium Level 140 MEQ/L 139 MEQ/L 141 MEQ/L Potassium Level 3.9 MEQ/L 3.2 MEQ/L 3.6 MEQ/L Chloride Level 102 MEQ/L 101 MEQ/L 104 MEQ/L Carbon Dioxide Level 29.9 MEQ/L 30.7 MEQ/L 30.4 MEQ/L Anion Gap 8 MEQ/L 7 MEQ/L 7 MEQ/L Estimat Glomerular Filtration Rate 32 ML/MIN 50 ML/MIN 47 ML/MIN Neutrophils (%) (Auto) 90.1 % Lymphocytes (%) (Auto) 5.5 % Monocytes (%) (Auto) 4.3 % Eosinophils (%) (Auto) 0.0 % Basophils (%) (Auto) 0.1 % Neutrophils # (Auto) 8.9 TH/MM3 Lymphocytes # (Auto) 0.5 TH/MM3 Monocytes # (Auto) 0.4 TH/MM3 Eosinophils # (Auto) 0.0 TH/MM3 Basophils # (Auto) 0.0 TH/MM3 CBC Comment DIFF FINAL Differential Comment Phosphorus Level 3.0 MG/DL Magnesium Level 2.2 MG/DL Thyroid Stimulating Hormone 3rd Gen 0.087 uIU/ML Free Thyroxine 0.93 NG/DL Free Triiodothyronine (T3) pg/dL 1.41 PG/ML Imaging Last Impressions Chest X-Ray 11/16/17 0000 Signed Impressions: Service Date/Time: Thursday, November 16, 2017 08:38 - CONCLUSION: Minimal parenchymal changes left base, improved in the interval. Garo Mejia MD FACR Renal Ultrasound 11/14/17 0000 Signed Impressions: Service Date/Time: October 13:38 - CONCLUSION: 1. Slight increase cortical echogenicity in both kidneys with preserved size characteristic of possible mild, acute medical renal disease. 2. Otherwise negative. No hydronephrosis or nephrolithiasis. Urinary bladder is decompressed. Addison Moya MD Thoracolumbar Spine 11/12/17 0000 Signed Impressions: Service Date/Time: Sunday, November 12, 2017 09:59 - CONCLUSION: Intraoperative images. Jay Mariscal MD Objective Remarks GEN: 72-year-old female resting in bed in no acute distress HEAD: Atraumatic. Normocephalic NECK: Supple. Thyroid not enlarged, no neck masses. LUNGS: Air entry equal bilaterally, symmetrical excursion. HEART: RRR. S1, S2 no S4. ABDOMEN: Soft, nontender no organomegaly MSK: Surgical dressing on the back intact single drain with serosanguineous drainage with FRED -168 cc EXTREMITIES: Warm and well-perfused. No edema. NEUROLOGIC: Alert awake oriented no focal deficits cranial nerves II through grossly intact. Strength is equal symmetric. Normal sensation. A/P Problem List: (1) Thoracic stenosis ICD Codes: M48.04 - Spinal stenosis, thoracic region Status: Acute Plan: - comgmt with NSX - S/P T11 12 decompressive laminectomy, medial facetectomy for spinal cord decompression, L1-2 bilateral decompressive semi-hemilaminectomy, Saenz- Guerrier osteotomy, L1-2 discectomy, interbody fusion,PEEK cage, lamina autograft bone, demineralized bone and stem cell matrix, cancellus bone chips., bilateral T10-L2 posterior lateral fusion with lamina autograft, demineralized bone and stem cell matrix, cancellus bone chips and bilateral T10-L3 posterior spinal instrumentation, revision previous L2-3 instrumentation. secondary to severe T11-12 stenosis, thoracic myelopathy, L1-2 adjacent level degeneration above previous L2-5 fusion and thoracolumbar acquired sagittal deformity with Dr. Francois - [employer] - [place] prn - FRED drain 58ml output (11/16) - robaxin prn - Gabapentin - PT - Will likely need SNF at the end of hospitalization - supportive care - DVT prophylaxis with SCDs (2) Thoracic myelopathy ICD Codes: M47.14 - Other spondylosis with myelopathy, thoracic region Status: Acute Plan: see above (3) Lumbar degenerative disc disease ICD Codes: M51.36 - Other intervertebral disc degeneration, lumbar region Status: Chronic Plan: see above (4) Hypotension ICD Codes: I95.9 - Hypotension, unspecified Status: Resolved Plan: - pt developed hypotension and ARF post operatively - pt received IVF bolus - Pt received pressor support with dopamine, stopped - Pt required BiPAP, now stable on 2L NC - pt received transfusion of 2 units PRBCs, Hg now stable - Pneumonia now appears less likely. NO fever, no leukocytosis. - stop zosyn (11/14 - 11/17), observe - decrease solumedrol to 60mg IV BID - decrease duonebs to q6h while awake (5) Atrial fibrillation ICD Codes: I48.91 - Unspecified atrial fibrillation Status: Acute Plan: - prior h/o Afib, developed recurrent afib post operatively - Echocardiogram (11/15/17) - EF 55-60% - mod TR - mild - moderate MVR - Pt seen by Cardiology (11/15) - Pt now in RVR with HR in 130s - resume outpt cardizem CD 180mg BID, observe response - Telemetry - NO anticoagulation d/t h/o GIB and now recent surgery (6) Acute kidney injury superimposed on CKD ICD Codes: N17.9 - Acute kidney failure, unspecified; N18.9 - Chronic kidney disease, unspecified Status: Acute Plan: - stable - observe (7) COPD (chronic obstructive pulmonary disease) ICD Codes: J44.9 - Chronic obstructive pulmonary disease, unspecified Status: Chronic Plan: - on 3L NC - IV solumedrol - duonebs q6h while awake & q2h prn (8) UTI (urinary tract infection) ICD Codes: N39.0 - Urinary tract infection, site not specified Plan: - Urine Cx (11/15) --> NO growth - pt already received zosyn (9) HTN (hypertension) ICD Codes: I10 - Essential (primary) hypertension Status: Chronic Plan: - stable - cardizem (10) Abnormal thyroid stimulating hormone (TSH) level ICD Codes: R94.6 - Abnormal results of thyroid function studies Status: Acute Plan: - TSH was normal June 2017 - repeat TSH/free T4/free T3 to see trend - consider tapazole Assessment and Plan Patient examined. Assessment and plan formulated with Marisol Varner PA-C. I agree with the above. - Pt in RVR - start telemetry - resume outpt cardizem dosing 180mg BID - NOT on anticoagulation d/t h/o GIB and recent surgery. Will d/w NSX & Cardiology. Problem Qualifiers (1) Hypotension: Qualified Codes: I95.81 - Postprocedural hypotension (2) Atrial fibrillation: Qualified Codes: I48.2 - Chronic atrial fibrillation (3) HTN (hypertension): Qualified Codes: I10 - Essential (primary) hypertension Marisol Varner Nov 17, 2017 09:20 Yariel Godwin DO Nov 17, 2017 11:25
--- NOTE | 2017-11-17 10:51 | HHI.NSPN ---
History Chief Complaint: Hurting all over. Interval History 11/12: The patient presented to [facility] for a T11-12 decompressive laminectomy, a L1-2 bilateral decompressive semi-hemilaminectomy with discectomy , interbody fusion and PEEK cage, and a bilateral T10-L2 posterior lateral fusion and posterior spinal instrumentation with revision of previous L2-3 instrumentation. Post-operatively she was admitted to the ISC unit for further monitoring and care. 11/13: The patient is seen in rounds this morning with Dr Francois. She is awake and alert and visiting with her . She states that she is hurting to her back but her feet are less numb than they were. 11/14: This morning the patient is awake and alert when seen. She says she is doing good although she has soreness to her back. She denies any pain, numbness , tingling or weakness to the extremities but then qualifies that when examined and says the toes are still numb but better than before surgery. She remains on a WRAPPER REWINDER pump for pain control. She was given an extra dose of furosemide for decreased urine output and renal function. 11/15: The patient yesterday became hypotensive after using the WRAPPER REWINDER pump and receiving furosemide. She was being given a bolus of normal saline and had received approximately 200 mL when she developed dyspnea. The flow rate on her nasal cannula was increased, the saline bolus was stopped and a neb treatment ordered. The patient was discussed with the Service Mechanic who evaluated her. A chest x-ray demonstrated a left lower lobe infiltrate and he began treatment for pneumonia. Due to a downward trend in her haemoglobin and her being symptomatic she was transfused two units of PRBCs. Nephrology and Cardiology were consulted by the Service Mechanic and also evaluated her yesterday. This morning when seen the patient is awake and alert. Her is setting up her breakfast tray. She states that she hurts all over, especially to the back. Nursing reports that the dressing to the patient's back was changed three times yesterday but none at night. 11/16: Pt awake and alert. Complains of incisional soreness. No radiculopathy in UE or LEs. Some extension of incisional pain into the ribs. No chest pain or sob. No abdominal pain. No paresthesias in UEs or LEs. 11/17: Pt awake and alert. Complains of incisional soreness. She is on Dilaudid WRAPPER REWINDER. No chest pain or sob. Review of Systems General: Negative for: fever, chills, insomnia Respiratory: Negative for: shortness of breath, cough, sputum Cardiovascular: Negative for: chest pain Gastrointestinal: Negative for: nausea, vomitting, diarrhea, constipation Exam Results Vital Signs Date Time Temp Pulse Resp B/P (MAP) Pulse Ox O2 Delivery O2 Flow Rate FiO2 11/17/17 10:03 95 Nasal Cannula 2.00 11/17/17 08:14 97.7 69 20 177/85 (115) Intake and Output 11/17/17 11/17/17 11/18/17 08:00 16:00 00:00 Intake Total 50 ml Balance 50 ml Physical Examination GENERAL: Awake & alert in bed, readily interacts, normal affect, no apparent distress. RESPIRATORY: CTAB w/o W/R/R, equal excursion, nonlaboured, on NC. CARDIOVASCULAR: NSR no murmurs. GASTROINTESTINAL: Abdomen, soft, nontender, bowel sounds not appreciated. MUSCULOSKELETAL: Moves all 4 extremities with 5/5 strength. NEUROLOGICAL: Pt awake and alert. Follows commands well. Speech clear and appropriate. Pupils equal. Face symmetric. Lab, Micro, Other Results Last Impressions Chest X-Ray 11/16/17 0000 Signed Impressions: Service Date/Time: Thursday, November 16, 2017 08:38 - CONCLUSION: Minimal parenchymal changes left base, improved in the interval. Garo Mejia MD FACR Renal Ultrasound 11/14/17 0000 Signed Impressions: Service Date/Time: October 13:38 - CONCLUSION: 1. Slight increase cortical echogenicity in both kidneys with preserved size characteristic of possible mild, acute medical renal disease. 2. Otherwise negative. No hydronephrosis or nephrolithiasis. Urinary bladder is decompressed. Addison Moya MD Thoracolumbar Spine 11/12/17 0000 Signed Impressions: Service Date/Time: Sunday, November 12, 2017 09:59 - CONCLUSION: Intraoperative images. Jay Mariscal MD Laboratory Tests Test 11/17/17 05:04 White Blood Count 9.2 TH/MM3 Red Blood Count 3.76 MIL/MM3 Hemoglobin 11.2 GM/DL Hematocrit 33.1 % Mean Corpuscular Volume 88.0 FL Mean Corpuscular Hemoglobin 29.8 PG Mean Corpuscular Hemoglobin Concent 33.9 % Red Cell Distribution Width 16.3 % Platelet Count 235 TH/MM3 Mean Platelet Volume 8.9 FL Blood Urea Nitrogen 36 MG/DL Creatinine 1.13 MG/DL Random Glucose 126 MG/DL Calcium Level 9.2 MG/DL Sodium Level 141 MEQ/L Potassium Level 3.6 MEQ/L Chloride Level 104 MEQ/L Carbon Dioxide Level 30.4 MEQ/L Anion Gap 7 MEQ/L Estimat Glomerular Filtration Rate 47 ML/MIN Free Thyroxine 0.93 NG/DL Free Triiodothyronine (T3) pg/dL 1.41 PG/ML Medical Decision Making Impression and Plan A: 72 y/o FM Preoperative Diagnosis: (1) Thoracic stenosis (2) Thoracic myelopathy (3) Lumbar degenerative disc disease 1. Severe T11-12 stenosis 2. Thoracic myelopathy 3. L1-2 adjacent level degeneration above previous L2-5 fusion 4. Thoracolumbar acquired sagittal deformity () s/p: 1. T11 12 decompressive laminectomy, medial facetectomy for spinal cord decompression 2. L1-2 bilateral decompressive semi-hemilaminectomy, Saenz-Guerrier osteotomy 3. L1-2 discectomy, interbody fusion,PEEK cage, lamina autograft bone, demineralized bone and stem cell matrix, cancellus bone chips. 4. Bilateral T10-L2 posterior lateral fusion with lamina autograft, demineralized bone and stem cell matrix, cancellus bone chips 5. Bilateral T10-L3 posterior spinal instrumentation, revision previous L2-3 instrumentation. Plan: OOB with brace on with PT Continue with pain control. Suleiman Gates Nov 17, 2017 10:51 am
[2017-11-17] MEDS: ACETAMINOPHEN/HYDROcodone 325 MG/10 MG TAB PO PRN ×2 (11:00→18:42)
[2017-11-17] MEDS: DILTIAZEM-CD 180 MG CAP ER PO SCH ×2 (11:48→21:41)
[2017-11-17] MEDS ORDERED: RESP: ALBUTEROL 2.5 MG/IPRATROPIUM 0.5 MG NEB (SCH) NEB (14:00)
[2017-11-17] MEDS ORDERED: LORazepam 0.5 MG TAB PO PRN (14:00)
[2017-11-17] MEDS: METOPROLOL TARTRATE 25 MG TAB PO SCH ×2 (15:20→21:41)
[2017-11-17] MEDS ORDERED: methylPREDNISolone SOD SUCC 125 MG/2 ML VIAL IV PUSH SCH (21:00)
[2017-11-18] VITALS (11 sets, daily range): BP systolic 132–181; BP diastolic 64–97; PULSE 55–103; RESP 18–20; TEMP 97–98.3; O2SAT 93–97
[2017-11-18] MEDS: ACETAMINOPHEN/HYDROcodone 325 MG/10 MG TAB PO PRN ×4 (00:31→21:03)
[2017-11-18] MEDS: PCA - TOTAL MG DILAUDID DELIVERED PER SHIFT OTHER SCH ×3 (06:00→21:09)
[2017-11-18 07:21] LABS: AUTOMATED NEUTROPHIL # 9.5 TH/MM3 (1.8-7.7); BASOPHIL % 0.1 % (0.0-2.0); HEMATOCRIT 35.4 % (35.0-46.0); HEMOGLOBIN 11.7 GM/DL (11.6-15.3); LYMPH % 13.2 % (9.0-44.0); LYMPHOCYTE # 1.6 TH/MM3 (1.0-4.8); MEAN CELL VOLUME 89.1 FL (80.0-100.0); MEAN CORPUSCULAR HEMOGLOBIN 29.4 PG (27.0-34.0); MEAN PLATELET VOLUME 8.5 FL (7.0-11.0); MONO % 10.3 % (0.0-8.0); MONOCYTE # 1.3 TH/MM3 (0-0.9); NEUT % 76.4 % (16.0-70.0); PLATELET COUNT 257 TH/MM3 (150-450); RED BLOOD COUNT 3.97 MIL/MM3 (4.00-5.30); RED CELL DISTRIBUTION WIDTH 16.4 % (11.6-17.2); WHITE BLOOD COUNT 12.4 TH/MM3 (4.0-11.0)
[2017-11-18 07:46] LABS: BICARBONATE 32.1 MEQ/L (21.0-32.0); CALCIUM 9.1 MG/DL (8.5-10.1); CREATININE 1.02 MG/DL (0.50-1.00); MAGNESIUM 2.4 MG/DL (1.5-2.5)
[2017-11-18 07:55] LABS: FREE T3 1.5 PG/ML (2.18-3.98); FREE T4 0.95 NG/DL (0.76-1.46)
[2017-11-18] MEDS: DOCUSATE SODIUM 100 MG CAP PO SCH (08:44)
[2017-11-18] MEDS: DILTIAZEM-CD 180 MG CAP ER PO SCH ×2 (08:47→21:01)
[2017-11-18] MEDS: GABAPENTIN 300 MG CAP PO SCH ×2 (08:47→21:02)
[2017-11-18] MEDS: MULTIVITAMINS/MINERALS THERAPEUTIC TAB PO SCH ×2 (08:48→21:02)
[2017-11-18] MEDS: CALCIUM/VITAMIN D 250 MG/125 U TAB PO SCH ×2 (08:48→21:02)
[2017-11-18] MEDS: PANTOPRAZOLE SOD 40 MG DELAYED RELEASE TAB PO SCH (08:48)
[2017-11-18] MEDS: METOPROLOL TARTRATE 25 MG TAB PO SCH ×2 (08:48→21:01)
[2017-11-18] MEDS: INSULIN NovoLIN REGULAR SUPPLEMENTAL SCALE SQ SCH ×4 (08:49→21:00)
--- NOTE | 2017-11-18 11:10 | RADRPT ---
EXAM DATE/TIME: 11/18/2017 10:39 [place] COMPARISON: No previous studies available for comparison. INDICATIONS : Cough, shortness of breath and chest pain. MEDICAL HISTORY : Hypertension. Gastroesophageal reflux disease. Atrial fibrillation. Stage III renal disease. SURGICAL HISTORY : Cholecystectomy. Hysterectomy. Lumbar laminectomy and fusion. Cardiac catheterization. Cardiac ablati on. Bladder sling. Left total hip replacement. Bilateral caral tunnel release. ENCOUNTER: Subsequent ACUITY: 2 days PAIN SCORE: 2/10 LOCATION: Bilateral chest FINDINGS: Interval improvement with only minimal peripheral changes persisting left base. The heart and pulmona ry vascularity are normal.. The cardiomediastinal contours are unremarkable. Previous thoracolumbar fixation. CONCLUSION: Interval improvement. Minimal parenchymal changes persist left base. Garo Mejia MD FACR on November 18, 2017 at 11:07 Board Certified Radiologist. This report was verified electronically.
--- NOTE | 2017-11-18 11:45 | HHI.NSPN ---
(Horacio Rendon) History Chief Complaint: Sore to the back. (Horacio Rendon) Interval History The 11/12: The patient presented to [facility] for a T11-12 decompressive laminectomy, a L1-2 bilateral decompressive semi-hemilaminectomy with discectomy , interbody fusion and PEEK cage, and a bilateral T10-L2 posterior lateral fusion and posterior spinal instrumentation with revision of previous L2-3 instrumentation. Post-operatively she was admitted to the ISC unit for further monitoring and care. 11/13: The patient is seen in rounds this morning with Dr Francois. She is awake and alert and visiting with her . She states that she is hurting to her back but her feet are less numb than they were. 11/14: This morning the patient is awake and alert when seen. She says she is doing good although she has soreness to her back. She denies any pain, numbness , tingling or weakness to the extremities but then qualifies that when examined and says the toes are still numb but better than before surgery. She remains on a FULL SERVICE VENDING DRIVER pump for pain control. She was given an extra dose of furosemide for decreased urine output and renal function. 11/15: The patient yesterday became hypotensive after using the F[employer]ICE VENDING [employer]IVER pump and receiving furosemide. She was being given a bolus of normal saline and had received approximately 200 mL when she developed dyspnea. The flow rate on her nasal cannula was increased, the saline bolus was stopped and a neb treatment ordered. The patient was discussed with the Application Support Technician who evaluated her. A chest x-ray demonstrated a left lower lobe infiltrate and he began treatment for pneumonia. Due to a downward trend in her haemoglobin and her being symptomatic she was transfused two units of PRBCs. Nephrology and Cardiology were consulted by the Application Support Technician and also evaluated her yesterday. This morning when seen the patient is awake and alert. Her is setting up her breakfast tray. She states that she hurts all over, especially to the back. Nursing reports that the dressing to the patient's back was changed three times yesterday but none at night. 11/16: Pt awake and alert. Complains of incisional soreness. No radiculopathy in UE or LEs. Some extension of incisional pain into the ribs. No chest pain or sob. No abdominal pain. No paresthesias in UEs or LEs. 11/17: Pt awake and alert. Complains of incisional soreness. 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 No chest pain or sob. 11/18: The patient has her eyes closed when seen but opens to voice. She readily interacts and says her back is sore but doing okay. She has the F[employer] SERVICE VENDING [employer]IVER control in her hand. She denies any pain, numbness or tingling to the extremities. Nursing stated that this morning when she came in the patient was restless and agitated due to pain. Nursing gave her the hydrocodone which relieved her pain. Nursing will intermittently reminded the patient she has the F[employer] SERVICE VENDING [employer]IVER pump available when she appears restless/uncomfortable. During the night it was reported that the dressing to the surgical incision had to be changed twice due to it's being saturated. (Horacio Rendon) Exam Results 11/16/17 11/16/17 11/17/17 11/17/17 11/18/17 11/18/17 06:00 18:00 06:00 18:00 06:00 18:00 Intake Total 820 ml 800 ml 152.9 ml 480 ml Output Total 808 ml 300 ml Balance 12 ml 500 ml 152.9 ml 480 ml Intake Oral 720 ml 800 ml 480 ml IV Total 100 ml 152.9 ml Output Urine Total 750 ml 300 ml Drainage Total 58 ml # Voids 3 4 # Bowel Movements 0 0 0 Vital Signs Date Time Temp Pulse Resp B/P (MAP) Pulse Ox O2 Delivery O2 Flow Rate FiO2 11/18/17 08:39 97.3 76 20 140/91 (107) 96 11/18/17 07:52 95 Nasal Cannula 2.00 11/18/17 06:00 16 11/18/17 04:00 97.0 70 18 181/97 (125) 97 11/18/17 00:20 98.3 103 20 133/64 (87) 96 11/17/17 22:40 18 11/17/17 22:39 18 11/17/17 20:00 95 Nasal Cannula 3.00 11/17/17 20:00 98.0 92 22 167/92 (117) 95 11/17/17 16:12 97.6 99 20 142/84 (103) 92 169/85 (113) 11/17/17 14:53 142/84 (103) 11/17/17 14:52 Automatic Cuff 11/17/17 14:29 128 11/17/17 12:08 97.2 119 20 143/85 (104) 91 11/17/17 10:03 95 Nasal Cannula 2.00 11/17/17 08:14 97.7 69 20 177/85 (115) 93 11/17/17 07:54 Nasal Cannula 3.00 11/17/17 05:30 18 11/17/17 04:24 171/81 (111) 11/17/17 04:00 98.0 82 18 185/86 (119) 92 11/17/17 03:35 94 Nasal Cannula 2.00 11/16/17 23:05 97.4 67 20 184/77 (112) 93 11/16/17 22:00 20 11/16/17 21:08 91 Nasal Cannula 2.00 11/16/17 20:00 97.3 61 20 160/75 (103) 93 11/16/17 19:45 Nasal Cannula 3.00 11/16/17 18:00 73 11/16/17 16:00 58 11/16/17 16:00 97.6 76 14 157/72 (100) 93 11/16/17 14:00 62 11/16/17 14:00 14 11/16/17 12:00 97.7 64 20 146/69 (94) 92 11/16/17 12:00 61 11/16/17 11:01 92 Nasal Cannula 4.00 11/16/17 10:00 84 11/16/17 08:00 97.8 58 13 177/76 (109) 98 11/16/17 08:00 68 11/16/17 07:00 93 Simple Mask 4.00 11/16/17 06:00 72 11/16/17 04:00 98.1 63 21 155/74 (101) 97 11/16/17 04:00 63 11/16/17 02:31 16 11/16/17 02:00 67 11/16/17 00:00 98.1 84 29 158/84 (108) 91 11/16/17 00:00 84 11/15/17 22:00 80 11/15/17 21:28 95 Nasal Cannula 2.00 11/15/17 20:00 98.1 92 31 179/75 (109) 90 11/15/17 20:00 92 11/15/17 19:00 100 Nasal Cannula 4.00 11/15/17 18:00 83 11/15/17 16:51 94 Nasal Cannula 4.00 11/15/17 16:00 79 11/15/17 16:00 97.7 80 28 183/82 (115) 93 11/15/17 14:00 68 11/15/17 12:00 70 11/15/17 12:00 98.8 68 26 178/81 (113) 98 (Horacio Rendon) Physical Examination GENERAL: Eyes closed in bed but opens them to voice, readily interacts, normal affect, no apparent distress. MUSCULOSKELETAL: GARCES w/o difficulty. Extremities NTTP. Thoracolumbar spine NTTP , dressing intact w/serosanguinous drainage noted. The FRED drain insertion site is mildly TTP, dressing intact. There is no erythema or streaking noted. NEUROLOGICAL: AAOx3. Speech clear & appropriate. Follows simple commands w/o difficulty. Sensation to light touch to all extremities. Motor strength 5/5 to all major flexion & extension muscle groups. (Horacio Rendon) Lab, Micro, Other Results Recent Impressions Chest X-Ray 11/16/17 0000 Signed Impressions: Service Date/Time: Thursday, November 16, 2017 08:38 - CONCLUSION: Minimal parenchymal changes left base, improved in the interval. Garo Mejia MD FACR Laboratory Tests Test 11/16/17 04:33 11/17/17 05:04 11/18/17 06:39 White Blood Count 9.8 TH/MM3 9.2 TH/MM3 12.4 TH/MM3 Red Blood Count 3.39 MIL/MM3 3.76 MIL/MM3 3.97 MIL/MM3 Hemoglobin 10.1 GM/DL 11.2 GM/DL 11.7 GM/DL Hematocrit 29.3 % 33.1 % 35.4 % Mean Corpuscular Volume 86.4 FL 88.0 FL 89.1 FL Mean Corpuscular Hemoglobin 29.8 PG 29.8 PG 29.4 PG Mean Corpuscular Hemoglobin Concent 34.5 % 33.9 % 33.0 % Red Cell Distribution Width 15.9 % 16.3 % 16.4 % Platelet Count 198 TH/MM3 235 TH/MM3 257 TH/MM3 Mean Platelet Volume 8.7 FL 8.9 FL 8.5 FL Neutrophils (%) (Auto) 90.1 % 76.4 % Lymphocytes (%) (Auto) 5.5 % 13.2 % Monocytes (%) (Auto) 4.3 % 10.3 % Eosinophils (%) (Auto) 0.0 % 0.0 % Basophils (%) (Auto) 0.1 % 0.1 % Neutrophils # (Auto) 8.9 TH/MM3 9.5 TH/MM3 Lymphocytes # (Auto) 0.5 TH/MM3 1.6 TH/MM3 Monocytes # (Auto) 0.4 TH/MM3 1.3 TH/MM3 Eosinophils # (Auto) 0.0 TH/MM3 0.0 TH/MM3 Basophils # (Auto) 0.0 TH/MM3 0.0 TH/MM3 CBC Comment DIFF FINAL DIFF FINAL Differential Comment Blood Urea Nitrogen 27 MG/DL 36 MG/DL 33 MG/DL Creatinine 1.08 MG/DL 1.13 MG/DL 1.02 MG/DL Random Glucose 134 MG/DL 126 MG/DL 80 MG/DL Calcium Level 8.5 MG/DL 9.2 MG/DL 9.1 MG/DL Phosphorus Level 3.0 MG/DL Magnesium Level 2.2 MG/DL 2.4 MG/DL Sodium Level 139 MEQ/L 141 MEQ/L 139 MEQ/L Potassium Level 3.2 MEQ/L 3.6 MEQ/L 3.4 MEQ/L Chloride Level 101 MEQ/L 104 MEQ/L 103 MEQ/L Carbon Dioxide Level 30.7 MEQ/L 30.4 MEQ/L 32.1 MEQ/L Anion Gap 7 MEQ/L 7 MEQ/L 4 MEQ/L Estimat Glomerular Filtration Rate 50 ML/MIN 47 ML/MIN 53 ML/MIN Thyroid Stimulating Hormone 3rd Gen 0.087 uIU/ML 1.640 uIU/ML Free Thyroxine 0.93 NG/DL 0.95 NG/DL Free Triiodothyronine (T3) pg/dL 1.41 PG/ML 1.50 PG/ML (Horacio Rendon) Medical Decision Making Impression and Plan Impression: Preoperative Diagnosis: (1) Thoracic stenosis (2) Thoracic myelopathy (3) Lumbar degenerative disc disease 1. Severe T11-12 stenosis 2. Thoracic myelopathy 3. L1-2 adjacent level degeneration above previous L2-5 fusion 4. Thoracolumbar acquired sagittal deformity The patient is doing well and her pain is controlled using PO meds and the FULL SERVICE VENDING DRIVER pump. No myelopathy. Surgical incision dressing with some drainage to it. Reviewed labs for today. Leukocytosis now but with improved neutrophilia. Anaemia resolved. Mild hypokalemia. Interval improvement in renal function. Patient afebrile. POD #6 () s/p: 1. T11 12 decompressive laminectomy, medial facetectomy for spinal cord decompression 2. L1-2 bilateral decompressive semi-hemilaminectomy, Saenz-Guerrier osteotomy 3. L1-2 discectomy, interbody fusion,PEEK cage, lamina autograft bone, demineralized bone and stem cell matrix, cancellus bone chips. 4. Bilateral T10-L2 posterior lateral fusion with lamina autograft, demineralized bone and stem cell matrix, cancellus bone chips 5. Bilateral T10-L3 posterior spinal instrumentation, revision previous L2-3 instrumentation. Postoperative Diagnosis: (1) Thoracic stenosis (2) Thoracic myelopathy (3) Lumbar degenerative disc disease 1. Severe T11-12 stenosis 2. Thoracic myelopathy 3. L1-2 adjacent level degeneration above previous L2-5 fusion 4. Thoracolumbar acquired sagittal deformity Plan: Medical management per Application Support Technician/Hospitalist. Frequent neuro checks. Mobilise patient w/assistance. TLSO brace when OOB. Keep patient off back. Maintain Hi and monitor urine output. Change dressing to surgical incision as needed and reinforce incision with steri -strips if they fall off. (Horacio Rendon) Attending Statement The patient states that she has no abdominal pain nausea or vomiting. No pain radiating to the lower extremities She states that she was out of bed sitting in a chair today. On examination she has clear respirations. Irregular heart rhythm without murmur. Sensation intact to light touch lower extremities Strength normal in the lower extremities Medicine notes reviewed No definite pneumonia Antibiotics discontinued Continuing respiratory treatments Continuing physical therapy She wants to try to go home rather than rehabilitation (Nolan Francois MD) Horacio Rendon Nov 18, 2017 11:45 Nolan Francois MD Nov 18, 2017 23:21
[2017-11-18] MEDS: HYDROmorphone HCL PCA 6 MG/30 ML IV SCH (15:16)
[2017-11-18] MEDS ORDERED: PEG (High)/E-LYTE SOLN 4000 ML BTL PO ONE (16:30)
--- NOTE | 2017-11-18 17:05 | HHI.PR ---
Subjective Remarks just complains of surgical site pain. unable to get comfortable but wants to go home. Objective Vitals awake squirming in pain from back surgical site bandaged heart irreg lung cta abd s/nt ext no edema Vital Signs Date Time Temp Pulse Resp B/P (MAP) Pulse Ox O2 Delivery O2 Flow Rate FiO2 11/18/17 15:44 97.3 61 20 139/72 (94) 93 11/18/17 15:16 20 11/18/17 11:40 97.1 72 20 132/77 (95) 97 11/18/17 08:45 96 Nasal Cannula 4.00 11/18/17 08:39 97.3 76 20 140/91 (107) 96 11/18/17 07:52 95 Nasal Cannula 2.00 11/18/17 06:00 16 11/18/17 04:00 97.0 70 18 181/97 (125) 97 11/18/17 00:20 98.3 103 20 133/64 (87) 96 11/17/17 22:40 18 11/17/17 22:39 18 11/17/17 20:00 95 Nasal Cannula 3.00 11/17/17 20:00 98.0 92 22 167/92 (117) 95 11/18/17 11/18/17 11/19/17 15:00 23:00 07:00 Intake Total 720 ml Balance 720 ml Intake Oral 720 ml # Voids 4 # Bowel Movements 1 Result Diagram: 11/18/17 0639 11/18/17 0639 Imaging Last Impressions Chest X-Ray 11/16/17 0000 Signed Impressions: Service Date/Time: Thursday, November 16, 2017 08:38 - CONCLUSION: Minimal parenchymal changes left base, improved in the interval. Garo Mejia MD FACR Renal Ultrasound 11/14/17 0000 Signed Impressions: Service Date/Time: October 13:38 - CONCLUSION: 1. Slight increase cortical echogenicity in both kidneys with preserved size characteristic of possible mild, acute medical renal disease. 2. Otherwise negative. No hydronephrosis or nephrolithiasis. Urinary bladder is decompressed. Addison Moya MD Thoracolumbar Spine 11/12/17 0000 Signed Impressions: Service Date/Time: Sunday, November 12, 2017 09:59 - CONCLUSION: Intraoperative images. Jay Mariscal MD A/P Problem List: (1) Thoracic stenosis ICD Codes: M48.04 - Spinal stenosis, thoracic region Status: Acute Plan: - S/P T11 12 decompressive laminectomy, medial facetectomy for spinal cord decompression, L1-2 bilateral decompressive semi-hemilaminectomy, Saenz- Guerrier osteotomy, L1-2 discectomy, interbody fusion,PEEK cage, lamina autograft bone, demineralized bone and stem cell matrix, cancellus bone chips., bilateral T10-L2 posterior lateral fusion with lamina autograft, demineralized bone and stem cell matrix, cancellus bone chips and bilateral T10-L3 posterior spinal instrumentation, revision previous L2-3 instrumentation. secondary to severe T11-12 stenosis, thoracic myelopathy, L1-2 adjacent level degeneration above previous L2-5 fusion and thoracolumbar acquired sagittal deformity with Dr. Francois - [employer] PATIENT SERVICES MANAGER per nsg - [place] prn -- PT - supportive care - DVT prophylaxis with SCDs (2) Atrial fibrillation ICD Codes: I48.91 - Unspecified atrial fibrillation Status: Acute Plan: - prior h/o Afib, developed recurrent afib/rvr post operatively - Echocardiogram (11/15/17) - EF 55-60% - mod TR - mild - moderate MVR - Pt seen by Cardiology (11/15) - Her cardizem 180mg po bid resumed and 25mg po bid lopressor. ..today her afib appears mostly controlled. pain is likely a factor as well. - NO anticoagulation d/t h/o GIB and now recent surgery (3) Thoracic myelopathy ICD Codes: M47.14 - Other spondylosis with myelopathy, thoracic region Status: Acute Plan: see above (4) Lumbar degenerative disc disease ICD Codes: M51.36 - Other intervertebral disc degeneration, lumbar region Status: Chronic Plan: see above (5) Hypotension ICD Codes: I95.9 - Hypotension, unspecified Status: Resolved Plan: - pt developed hypotension and ARF post operatively - pt received IVF bolus - Pt received pressor support with dopamine, stopped - Pt required BiPAP, now stable on 2L NC - pt received transfusion of 2 units PRBCs, Hg now stable - Pneumonia now appears less likely. NO fever, no leukocytosis. - stop zosyn (11/14 - 11/17), observe - solumedrol stopped 11/17 (6) Acute kidney injury superimposed on CKD ICD Codes: N17.9 - Acute kidney failure, unspecified; N18.9 - Chronic kidney disease, unspecified Status: Acute Plan: - stable - observe (7) COPD (chronic obstructive pulmonary disease) ICD Codes: J44.9 - Chronic obstructive pulmonary disease, unspecified Status: Chronic Plan: - on 3L NC - IV solumedrol - duonebs q6h while awake & q2h prn (8) HTN (hypertension) ICD Codes: I10 - Essential (primary) hypertension Status: Chronic Plan: - stable - cardizem (9) Abnormal thyroid stimulating hormone (TSH) level ICD Codes: R94.6 - Abnormal results of thyroid function studies Status: Acute Plan: - repeat TFT normalizing. monitor. felt related to acute illness. Problem Qualifiers (1) Atrial fibrillation: Qualified Codes: I48.2 - Chronic atrial fibrillation (2) Hypotension: Qualified Codes: I95.81 - Postprocedural hypotension (3) HTN (hypertension): Qualified Codes: I10 - Essential (primary) hypertension Marc Christine MD Nov 18, 2017 17:05
[2017-11-18] MEDS ORDERED: POTASSIUM CHLORIDE 20 MEQ CONTROLLED RELEASE TAB PO ONE (17:15)
[2017-11-18] MEDS: DOCUSATE SODIUM 50 MG/SENNA 8.6 MG TAB PO SCH (21:01)
[2017-11-19] VITALS (14 sets, daily range): BP systolic 109–138; BP diastolic 59–87; PULSE 60–92; RESP 17–20; TEMP 97.1–98; O2SAT 94–98
[2017-11-19 05:22] LABS: BICARBONATE 27.5 MEQ/L (21.0-32.0); CALCIUM 8.8 MG/DL (8.5-10.1); CREATININE 1.26 MG/DL (0.50-1.00); MAGNESIUM 2.1 MG/DL (1.5-2.5)
[2017-11-19] MEDS: PCA - TOTAL MG DILAUDID DELIVERED PER SHIFT OTHER SCH ×3 (06:00→22:11)
[2017-11-19] MEDS: INSULIN NovoLIN REGULAR SUPPLEMENTAL SCALE SQ SCH ×4 (07:55→21:00)
[2017-11-19] MEDS: BISACODYL 10 MG SUPP RECTAL SCH (09:24)
[2017-11-19] MEDS: DOCUSATE SODIUM 50 MG/SENNA 8.6 MG TAB PO SCH ×2 (09:24→20:56)
[2017-11-19] MEDS: PANTOPRAZOLE SOD 40 MG DELAYED RELEASE TAB PO SCH (09:24)
[2017-11-19] MEDS: METOPROLOL TARTRATE 25 MG TAB PO SCH ×2 (09:24→20:56)
[2017-11-19] MEDS: MULTIVITAMINS/MINERALS THERAPEUTIC TAB PO SCH ×2 (09:24→20:56)
[2017-11-19] MEDS: CALCIUM/VITAMIN D 250 MG/125 U TAB PO SCH ×2 (09:24→20:56)
[2017-11-19] MEDS: DILTIAZEM-CD 180 MG CAP ER PO SCH ×2 (09:24→20:56)
[2017-11-19] MEDS: GABAPENTIN 300 MG CAP PO SCH ×2 (09:24→20:56)
--- NOTE | 2017-11-19 09:52 | HHI.PR ---
Subjective Remarks pt c/o surgical pain. 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 just punched the state game warden button when I arrived no bm yet Objective Vitals heart irreg lung cta abd s/nt ext no edema back/ surgical site bandaged. Vital Signs Date Time Temp Pulse Resp B/P (MAP) Pulse Ox O2 Delivery O2 Flow Rate FiO2 11/19/17 09:29 98 Nasal Cannula 3.00 11/19/17 08:20 97.3 68 20 138/78 (98) 98 11/19/17 06:00 18 11/19/17 05:36 97.4 68 18 116/79 (91) 96 11/19/17 01:15 62 11/19/17 00:51 97.1 69 18 134/87 (103) 94 11/19/17 00:30 61 11/18/17 22:55 Nasal Cannula 3.00 11/18/17 21:20 96 Nasal Cannula 3.00 11/18/17 21:09 18 11/18/17 21:03 98.0 80 18 161/80 (107) 94 11/18/17 20:30 56 11/18/17 16:15 55 11/18/17 15:44 97.3 61 20 139/72 (94) 93 11/18/17 15:16 20 11/18/17 12:13 73 11/18/17 11:40 97.1 72 20 132/77 (95) 97 Result Diagram: 11/18/17 0639 11/19/17 0405 Imaging Last Impressions Chest X-Ray 11/16/17 0000 Signed Impressions: Service Date/Time: Thursday, November 16, 2017 08:38 - CONCLUSION: Minimal parenchymal changes left base, improved in the interval. Garo Mejia MD FACR Renal Ultrasound 11/14/17 0000 Signed Impressions: Service Date/Time: October 13:38 - CONCLUSION: 1. Slight increase cortical echogenicity in both kidneys with preserved size characteristic of possible mild, acute medical renal disease. 2. Otherwise negative. No hydronephrosis or nephrolithiasis. Urinary bladder is decompressed. Addison Moya MD Thoracolumbar Spine 11/12/17 0000 Signed Impressions: Service Date/Time: Sunday, November 12, 2017 09:59 - CONCLUSION: Intraoperative images. Jay Mariscal MD A/P Problem List: (1) Thoracic stenosis ICD Codes: M48.04 - Spinal stenosis, thoracic region Status: Acute Plan: - S/P T11 12 decompressive laminectomy, medial facetectomy for spinal cord decompression, L1-2 bilateral decompressive semi-hemilaminectomy, Saenz- Guerrier osteotomy, L1-2 discectomy, interbody fusion,PEEK cage, lamina autograft bone, demineralized bone and stem cell matrix, cancellus bone chips., bilateral T10-L2 posterior lateral fusion with lamina autograft, demineralized bone and stem cell matrix, cancellus bone chips and bilateral T10-L3 posterior spinal instrumentation, revision previous L2-3 instrumentation. secondary to severe T11-12 stenosis, thoracic myelopathy, L1-2 adjacent level degeneration above previous L2-5 fusion and thoracolumbar acquired sagittal deformity with Dr. Francois - [employer] per nsg. I discussed with the pt and nursing to try converting over to pills today -laxatives are ordered and no bm yet. - [place] prn -- PT - supportive care - DVT prophylaxis with SCDs (2) Atrial fibrillation ICD Codes: I48.91 - Unspecified atrial fibrillation Status: Acute Plan: - prior h/o Afib, developed recurrent afib/rvr post operatively - Echocardiogram (11/15/17) - EF 55-60% - mod TR - mild - moderate MVR - Pt seen by Cardiology (11/15) - Her cardizem 180mg po bid resumed and 25mg po bid lopressor. ..today her afib appears mostly controlled. pain is likely a factor as well. - NO anticoagulation d/t h/o GIB and now recent surgery (3) Thoracic myelopathy ICD Codes: M47.14 - Other spondylosis with myelopathy, thoracic region Status: Acute Plan: see above (4) Lumbar degenerative disc disease ICD Codes: M51.36 - Other intervertebral disc degeneration, lumbar region Status: Chronic Plan: see above (5) Hypotension ICD Codes: I95.9 - Hypotension, unspecified Status: Resolved Plan: - pt developed hypotension and ARF post operatively - pt received IVF bolus - Pt received pressor support with dopamine, stopped - Pt required BiPAP, now stable on 2L NC - pt received transfusion of 2 units PRBCs, Hg now stable - Pneumonia now appears less likely. NO fever, no leukocytosis. - stop zosyn (11/14 - 11/17), observe - solumedrol stopped 11/17 (6) Acute kidney injury superimposed on CKD ICD Codes: N17.9 - Acute kidney failure, unspecified; N18.9 - Chronic kidney disease, unspecified Status: Acute Plan: - stable - observe (7) COPD (chronic obstructive pulmonary disease) ICD Codes: J44.9 - Chronic obstructive pulmonary disease, unspecified Status: Chronic Plan: - on 3L NC - IV solumedrol - duonebs q6h while awake & q2h prn (8) HTN (hypertension) ICD Codes: I10 - Essential (primary) hypertension Status: Chronic Plan: - stable - cardizem (9) Abnormal thyroid stimulating hormone (TSH) level ICD Codes: R94.6 - Abnormal results of thyroid function studies Status: Acute Plan: - repeat TFT normalizing. monitor. felt related to acute illness. Problem Qualifiers (1) Atrial fibrillation: Qualified Codes: I48.2 - Chronic atrial fibrillation (2) Hypotension: Qualified Codes: I95.81 - Postprocedural hypotension (3) HTN (hypertension): Qualified Codes: I10 - Essential (primary) hypertension Marc Christine MD Nov 19, 2017 09:52
[2017-11-19] MEDS ORDERED: LACTULOSE SYRUP 20 GM/30 ML CUP PO PRN (10:00)
--- NOTE | 2017-11-19 10:05 | HHI.NSPN ---
History Chief Complaint: Back pain. Interval History The 11/12: The patient presented to [facility] for a T11-12 decompressive laminectomy, a L1-2 bilateral decompressive semi-hemilaminectomy with discectomy , interbody fusion and PEEK cage, and a bilateral T10-L2 posterior lateral fusion and posterior spinal instrumentation with revision of previous L2-3 instrumentation. Post-operatively she was admitted to the ISC unit for further monitoring and care. 11/13: The patient is seen in rounds this morning with Dr Francois. She is awake and alert and visiting with her . She states that she is hurting to her back but her feet are less numb than they were. 11/14: This morning the patient is awake and alert when seen. She says she is doing good although she has soreness to her back. She denies any pain, numbness , tingling or weakness to the extremities but then qualifies that when examined and says the toes are still numb but better than before surgery. She remains on a MACHINED PARTS METAL SPRAYER pump for pain control. She was given an extra dose of furosemide for decreased urine output and renal function. 11/15: The patient yesterday became hypotensive after using the MACHINED PARTS METAL SPRAYER pump and receiving furosemide. She was being given a bolus of normal saline and had received approximately 200 mL when she developed dyspnea. The flow rate on her nasal cannula was increased, the saline bolus was stopped and a neb treatment ordered. The patient was discussed with the [employer] Operator who evaluated her. A chest x-ray demonstrated a left lower lobe infiltrate and he began treatment for pneumonia. Due to a downward trend in her haemoglobin and her being symptomatic she was transfused two units of PRBCs. Nephrology and Cardiology were consulted by the [employer] Operator and also evaluated her yesterday. This morning when seen the patient is awake and alert. Her is setting up her breakfast tray. She states that she hurts all over, especially to the back. Nursing reports that the dressing to the patient's back was changed three times yesterday but none at night. 11/16: Pt awake and alert. Complains of incisional soreness. No radiculopathy in UE or LEs. Some extension of incisional pain into the ribs. No chest pain or sob. No abdominal pain. No paresthesias in UEs or LEs. 11/17: Pt awake and alert. Complains of incisional soreness. She is on Dilaudid MACHINED PARTS METAL SPRAYER. No chest pain or sob. 11/18: The patient has her eyes closed when seen but opens to voice. She readily interacts and says her back is sore but doing okay. She has the MACHINED PARTS METAL SPRAYER control in her hand. She denies any pain, numbness or tingling to the extremities. Nursing stated that this morning when she came in the patient was restless and agitated due to pain. Nursing gave her the hydrocodone which relieved her pain. Nursing will intermittently reminded the patient she has the MACHINED PARTS METAL SPRAYER pump available when she appears restless/uncomfortable. During the night it was reported that the dressing to the surgical incision had to be changed twice due to it's being saturated. 11/19: This morning the patient was initially seen sitting on the bedside commode with the TLSO brace on. She stated that she was doing terrible due to her back pain. She denied any pain, numbness or tingling to the lower extremities. The patient states that she did not use the MACHINED PARTS METAL SPRAYER during the night and only used it once today so far. Exam Results 11/17/17 11/17/17 11/18/17 11/18/17 11/19/17 11/19/17 06:00 18:00 06:00 18:00 06:00 18:00 Intake Total 152.9 ml 480 ml 720 ml 1.9 ml Balance 152.9 ml 480 ml 720 ml 1.9 ml Intake Oral 480 ml 720 ml IV Total 152.9 ml 1.9 ml # Voids 3 4 4 3 1 # Bowel Movements 0 0 Vital Signs Date Time Temp Pulse Resp B/P (MAP) Pulse Ox O2 Delivery O2 Flow Rate FiO2 11/19/17 09:29 98 Nasal Cannula 3.00 11/19/17 08:20 97.3 68 20 138/78 (98) 98 11/19/17 06:00 18 11/19/17 05:36 97.4 68 18 116/79 (91) 96 11/19/17 01:15 62 11/19/17 00:51 97.1 69 18 134/87 (103) 94 11/19/17 00:30 61 11/18/17 22:55 Nasal Cannula 3.00 11/18/17 21:20 96 Nasal Cannula 3.00 11/18/17 21:09 18 11/18/17 21:03 98.0 80 18 161/80 (107) 94 11/18/17 20:30 56 11/18/17 16:15 55 11/18/17 15:44 97.3 61 20 139/72 (94) 93 11/18/17 15:16 20 11/18/17 12:13 73 11/18/17 11:40 97.1 72 20 132/77 (95) 97 11/18/17 08:45 96 Nasal Cannula 4.00 11/18/17 08:39 97.3 76 20 140/91 (107) 96 11/18/17 07:52 95 Nasal Cannula 2.00 11/18/17 06:00 16 11/18/17 04:00 97.0 70 18 181/97 (125) 97 11/18/17 00:20 98.3 103 20 133/64 (87) 96 11/17/17 22:40 18 11/17/17 22:39 18 11/17/17 20:00 95 Nasal Cannula 3.00 11/17/17 20:00 98.0 92 22 167/92 (117) 95 11/17/17 16:12 97.6 99 20 142/84 (103) 92 169/85 (113) 11/17/17 14:53 142/84 (103) 11/17/17 14:52 Automatic Cuff 11/17/17 14:29 128 11/17/17 12:08 97.2 119 20 143/85 (104) 91 11/17/17 10:03 95 Nasal Cannula 2.00 11/17/17 08:14 97.7 69 20 177/85 (115) 93 11/17/17 07:54 Nasal Cannula 3.00 11/17/17 05:30 18 11/17/17 04:24 171/81 (111) 11/17/17 04:00 98.0 82 18 185/86 (119) 92 11/17/17 03:35 94 Nasal Cannula 2.00 11/16/17 23:05 97.4 67 20 184/77 (112) 93 11/16/17 22:00 20 11/16/17 21:08 91 Nasal Cannula 2.00 11/16/17 20:00 97.3 61 20 160/75 (103) 93 11/16/17 19:45 Nasal Cannula 3.00 11/16/17 18:00 73 11/16/17 16:00 58 11/16/17 16:00 97.6 76 14 157/72 (100) 93 11/16/17 14:00 62 11/16/17 14:00 14 11/16/17 12:00 97.7 64 20 146/69 (94) 92 11/16/17 12:00 61 11/16/17 11:01 92 Nasal Cannula 4.00 11/16/17 10:00 84 Physical Examination GENERAL: Awake & alert, readily interacts, slight flat affect, no apparent distress. MUSCULOSKELETAL: GARCES w/o difficulty. Extremities NTTP. TLSO brace in place, thoracolumbar spine TTP, dressing intact to surgical incision & FRED drain insertion. NEUROLOGICAL: AAOx3. Speech clear & appropriate. Follows simple commands w/o difficulty. Sensation to light touch to all extremities. Motor strength 5/5 to all major flexion & extension muscle groups. Lab, Micro, Other Results Recent Impressions Chest X-Ray 11/18/17 0800 Signed Impressions: Service Date/Time: Saturday, November 18, 2017 10:39 - CONCLUSION: Interval improvement. Minimal parenchymal changes persist left base. Garo Mejia MD FACR Laboratory Tests Test 11/17/17 05:04 11/18/17 06:39 11/19/17 04:05 White Blood Count 9.2 TH/MM3 12.4 TH/MM3 Red Blood Count 3.76 MIL/MM3 3.97 MIL/MM3 Hemoglobin 11.2 GM/DL 11.7 GM/DL Hematocrit 33.1 % 35.4 % Mean Corpuscular Volume 88.0 FL 89.1 FL Mean Corpuscular Hemoglobin 29.8 PG 29.4 PG Mean Corpuscular Hemoglobin Concent 33.9 % 33.0 % Red Cell Distribution Width 16.3 % 16.4 % Platelet Count 235 TH/MM3 257 TH/MM3 Mean Platelet Volume 8.9 FL 8.5 FL Blood Urea Nitrogen 36 MG/DL 33 MG/DL 43 MG/DL Creatinine 1.13 MG/DL 1.02 MG/DL 1.26 MG/DL Random Glucose 126 MG/DL 80 MG/DL 75 MG/DL Calcium Level 9.2 MG/DL 9.1 MG/DL 8.8 MG/DL Sodium Level 141 MEQ/L 139 MEQ/L 140 MEQ/L Potassium Level 3.6 MEQ/L 3.4 MEQ/L 3.6 MEQ/L Chloride Level 104 MEQ/L 103 MEQ/L 103 MEQ/L Carbon Dioxide Level 30.4 MEQ/L 32.1 MEQ/L 27.5 MEQ/L Anion Gap 7 MEQ/L 4 MEQ/L 10 MEQ/L Estimat Glomerular Filtration Rate 47 ML/MIN 53 ML/MIN 42 ML/MIN Free Thyroxine 0.93 NG/DL 0.95 NG/DL Free Triiodothyronine (T3) pg/dL 1.41 PG/ML 1.50 PG/ML Neutrophils (%) (Auto) 76.4 % Lymphocytes (%) (Auto) 13.2 % Monocytes (%) (Auto) 10.3 % Eosinophils (%) (Auto) 0.0 % Basophils (%) (Auto) 0.1 % Neutrophils # (Auto) 9.5 TH/MM3 Lymphocytes # (Auto) 1.6 TH/MM3 Monocytes # (Auto) 1.3 TH/MM3 Eosinophils # (Auto) 0.0 TH/MM3 Basophils # (Auto) 0.0 TH/MM3 CBC Comment DIFF FINAL Differential Comment Magnesium Level 2.4 MG/DL 2.1 MG/DL Thyroid Stimulating Hormone 3rd Gen 1.640 uIU/ML Medical Decision Making Impression and Plan Impression: Preoperative Diagnosis: (1) Thoracic stenosis (2) Thoracic myelopathy (3) Lumbar degenerative disc disease 1. Severe T11-12 stenosis 2. Thoracic myelopathy 3. L1-2 adjacent level degeneration above previous L2-5 fusion 4. Thoracolumbar acquired sagittal deformity The patient is doing well but her pain is not well controlled when seen. No myelopathy. Surgical incision dressing with some drainage to it. Reviewed labs for today. Hypokalemia resolved. Interval decrease in renal function. Patient afebrile. PT recommends inpatient rehab. The patient states that she does not want to go to rehab but wants to go home at discharge. POD #7 () s/p: 1. T11 12 decompressive laminectomy, medial facetectomy for spinal cord decompression 2. L1-2 bilateral decompressive semi-hemilaminectomy, Saenz-Guerrier osteotomy 3. L1-2 discectomy, interbody fusion,PEEK cage, lamina autograft bone, demineralized bone and stem cell matrix, cancellus bone chips. 4. Bilateral T10-L2 posterior lateral fusion with lamina autograft, demineralized bone and stem cell matrix, cancellus bone chips 5. Bilateral T10-L3 posterior spinal instrumentation, revision previous L2-3 instrumentation. Postoperative Diagnosis: (1) Thoracic stenosis (2) Thoracic myelopathy (3) Lumbar degenerative disc disease 1. Severe T11-12 stenosis 2. Thoracic myelopathy 3. L1-2 adjacent level degeneration above previous L2-5 fusion 4. Thoracolumbar acquired sagittal deformity Plan: Medical management per [employer] Operator/Hospitalist. Frequent neuro checks. Mobilise patient w/assistance. TLSO brace when OOB. Keep patient off back. Change dressing to surgical incision as needed and reinforce incision with steri -strips if they fall off. Horacio Rendon Nov 19, 2017 10:05
[2017-11-20] VITALS (12 sets, daily range): BP systolic 102–139; BP diastolic 52–69; PULSE 49–60; RESP 17–18; TEMP 97.4–98.6; O2SAT 94–99
[2017-11-20] MEDS: HYDROmorphone HCL PCA 6 MG/30 ML IV SCH (04:55)
[2017-11-20] MEDS: PCA - TOTAL MG DILAUDID DELIVERED PER SHIFT OTHER SCH ×2 (05:18→14:00)
[2017-11-20] MEDS: INSULIN NovoLIN REGULAR SUPPLEMENTAL SCALE SQ SCH ×4 (07:56→21:00)
[2017-11-20] MEDS: PANTOPRAZOLE SOD 40 MG DELAYED RELEASE TAB PO SCH (09:04)
[2017-11-20] MEDS: CALCIUM/VITAMIN D 250 MG/125 U TAB PO SCH ×2 (09:04→20:48)
[2017-11-20] MEDS: MULTIVITAMINS/MINERALS THERAPEUTIC TAB PO SCH ×2 (09:04→20:48)
[2017-11-20] MEDS: GABAPENTIN 300 MG CAP PO SCH ×2 (09:04→20:48)
[2017-11-20] MEDS: METOPROLOL TARTRATE 25 MG TAB PO SCH ×2 (09:05→20:51)
[2017-11-20] MEDS: ACETAMINOPHEN/HYDROcodone 325 MG/10 MG TAB PO PRN ×3 (09:05→17:04)
[2017-11-20] MEDS: BISACODYL 10 MG SUPP RECTAL SCH (09:05)
[2017-11-20] MEDS: DOCUSATE SODIUM 50 MG/SENNA 8.6 MG TAB PO SCH ×2 (09:05→20:50)
[2017-11-20] MEDS: DILTIAZEM-CD 180 MG CAP ER PO SCH ×2 (09:05→20:47)
--- NOTE | 2017-11-20 09:45 | HHI.PR ---
Subjective Remarks still with surgical site pain. flatus no bm Objective Vitals heart reg lung cta abd s/nt ext no edema Vital Signs Date Time Temp Pulse Resp B/P (MAP) Pulse Ox O2 Delivery O2 Flow Rate FiO2 11/20/17 08:47 97.7 56 18 139/63 (88) 99 11/20/17 05:25 18 11/20/17 05:18 18 11/20/17 05:00 98.6 54 17 103/69 (80) 95 11/20/17 04:55 18 11/20/17 00:50 97.6 57 17 102/52 (69) 98 11/19/17 22:11 18 11/19/17 21:00 95 Nasal Cannula 3.00 11/19/17 20:54 98 Nasal Cannula 3.00 11/19/17 20:40 97.2 61 17 114/59 (77) 98 11/19/17 19:49 60 11/19/17 16:11 64 11/19/17 15:37 97.9 77 20 115/68 (84) 98 11/19/17 14:00 16 11/19/17 12:11 75 11/19/17 11:23 98.0 74 20 109/62 (78) 96 Result Diagram: 11/18/17 0639 11/19/17 0405 Imaging Last Impressions Chest X-Ray 11/16/17 0000 Signed Impressions: Service Date/Time: Thursday, November 16, 2017 08:38 - CONCLUSION: Minimal parenchymal changes left base, improved in the interval. Garo Mejia MD FACR Renal Ultrasound 11/14/17 0000 Signed Impressions: Service Date/Time: October 13:38 - CONCLUSION: 1. Slight increase cortical echogenicity in both kidneys with preserved size characteristic of possible mild, acute medical renal disease. 2. Otherwise negative. No hydronephrosis or nephrolithiasis. Urinary bladder is decompressed. Addison Moya MD Thoracolumbar Spine 11/12/17 0000 Signed Impressions: Service Date/Time: Sunday, November 12, 2017 09:59 - CONCLUSION: Intraoperative images. Jay Mariscal MD A/P Problem List: (1) Thoracic stenosis ICD Codes: M48.04 - Spinal stenosis, thoracic region Status: Acute Plan: - S/P T11 12 decompressive laminectomy, medial facetectomy for spinal cord decompression, L1-2 bilateral decompressive semi-hemilaminectomy, Saenz- Guerrier osteotomy, L1-2 discectomy, interbody fusion,PEEK cage, lamina autograft bone, demineralized bone and stem cell matrix, cancellus bone chips., bilateral T10-L2 posterior lateral fusion with lamina autograft, demineralized bone and stem cell matrix, cancellus bone chips and bilateral T10-L3 posterior spinal instrumentation, revision previous L2-3 instrumentation. secondary to severe T11-12 stenosis, thoracic myelopathy, L1-2 adjacent level degeneration above previous L2-5 fusion and thoracolumbar acquired sagittal deformity with Dr. Francois - Lexid STRATEGIC DEVELOPMENT MANAGER per nsg. I discussed with the pt/ and nursing to try converting over to pills today -laxatives are ordered and no bm yet. - [facility] ok with NSG. medically stable. - [place] prn -- PT - supportive care - DVT prophylaxis with SCDs (2) Atrial fibrillation ICD Codes: I48.91 - Unspecified atrial fibrillation Status: Acute Plan: - prior h/o Afib, developed recurrent afib/rvr post operatively - Echocardiogram (11/15/17) - EF 55-60% - mod TR - mild - moderate MVR - Pt seen by Cardiology (11/15) - Her cardizem 180mg po bid resumed and 25mg po bid lopressor. ..today her afib appears mostly controlled. pain is likely a factor as well. - NO anticoagulation d/t h/o GIB and now recent surgery (3) Thoracic myelopathy ICD Codes: M47.14 - Other spondylosis with myelopathy, thoracic region Status: Acute Plan: see above (4) Lumbar degenerative disc disease ICD Codes: M51.36 - Other intervertebral disc degeneration, lumbar region Status: Chronic Plan: see above (5) Hypotension ICD Codes: I95.9 - Hypotension, unspecified Status: Resolved Plan: - pt developed hypotension and ARF post operatively - pt received IVF bolus - Pt received pressor support with dopamine, stopped - Pt required BiPAP, now stable on 2L NC - pt received transfusion of 2 units PRBCs, Hg now stable - Pneumonia now appears less likely. NO fever, no leukocytosis. - stop zosyn (11/14 - 11/17), observe - solumedrol stopped 11/17 (6) Acute kidney injury superimposed on CKD ICD Codes: N17.9 - Acute kidney failure, unspecified; N18.9 - Chronic kidney disease, unspecified Status: Acute Plan: - stable - observe (7) COPD (chronic obstructive pulmonary disease) ICD Codes: J44.9 - Chronic obstructive pulmonary disease, unspecified Status: Chronic Plan: - on 3L NC - IV solumedrol - duonebs q6h while awake & q2h prn (8) HTN (hypertension) ICD Codes: I10 - Essential (primary) hypertension Status: Chronic Plan: - stable - cardizem (9) Abnormal thyroid stimulating hormone (TSH) level ICD Codes: R94.6 - Abnormal results of thyroid function studies Status: Acute Plan: - repeat TFT normalizing. monitor. felt related to acute illness. Problem Qualifiers (1) Atrial fibrillation: Qualified Codes: I48.2 - Chronic atrial fibrillation (2) Hypotension: Qualified Codes: I95.81 - Postprocedural hypotension (3) HTN (hypertension): Qualified Codes: I10 - Essential (primary) hypertension Marc Christine MD Nov 20, 2017 09:45
--- NOTE | 2017-11-20 16:52 | HHI.NSPN ---
History Chief Complaint: Back is sore. Interval History The 11/12: The patient presented to [facility] for a T11-12 decompressive laminectomy, a L1-2 bilateral decompressive semi-hemilaminectomy with discectomy , interbody fusion and PEEK cage, and a bilateral T10-L2 posterior lateral fusion and posterior spinal instrumentation with revision of previous L2-3 instrumentation. Post-operatively she was admitted to the ISC unit for further monitoring and care. 11/13: The patient is seen in rounds this morning with Dr Francois. She is awake and alert and visiting with her . She states that she is hurting to her back but her feet are less numb than they were. 11/14: This morning the patient is awake and alert when seen. She says she is doing good although she has soreness to her back. She denies any pain, numbness , tingling or weakness to the extremities but then qualifies that when examined and says the toes are still numb but better than before surgery. She remains on a POST ACUTE CARE REGISTERED NURSE pump for pain control. She was given an extra dose of furosemide for decreased urine output and renal function. 11/15: The patient yesterday became hypotensive after using the POST ACUTE CARE REGISTERED NURSE pump and receiving furosemide. She was being given a bolus of normal saline and had received approximately 200 mL when she developed dyspnea. The flow rate on her nasal cannula was increased, the saline bolus was stopped and a neb treatment ordered. The patient was discussed with the Food Services Manager who evaluated her. A chest x-ray demonstrated a left lower lobe infiltrate and he began treatment for pneumonia. Due to a downward trend in her haemoglobin and her being symptomatic she was transfused two units of PRBCs. Nephrology and Cardiology were consulted by the Food Services Manager and also evaluated her yesterday. This morning when seen the patient is awake and alert. Her is setting up her breakfast tray. She states that she hurts all over, especially to the back. Nursing reports that the dressing to the patient's back was changed three times yesterday but none at night. 11/16: Pt awake and alert. Complains of incisional soreness. No radiculopathy in UE or LEs. Some extension of incisional pain into the ribs. No chest pain or sob. No abdominal pain. No paresthesias in UEs or LEs. 11/17: Pt awake and alert. Complains of incisional soreness. She is on Dilaudid POST ACUTE CARE REGISTERED NURSE. No chest pain or sob. 11/18: The patient has her eyes closed when seen but opens to voice. She readily interacts and says her back is sore but doing okay. She has the POST ACUTE CARE REGISTERED NURSE control in her hand. She denies any pain, numbness or tingling to the extremities. Nursing stated that this morning when she came in the patient was restless and agitated due to pain. Nursing gave her the hydrocodone which relieved her pain. Nursing will intermittently reminded the patient she has the POST ACUTE CARE REGISTERED NURSE pump available when she appears restless/uncomfortable. During the night it was reported that the dressing to the surgical incision had to be changed twice due to it's being saturated. 11/19: This morning the patient was initially seen sitting on the bedside commode with the TLSO brace on. She stated that she was doing terrible due to her back pain. She denied any pain, numbness or tingling to the lower extremities. The patient states that she did not use the POST ACUTE CARE REGISTERED NURSE during the night and only used it once today so far. 11/20: When seen this afternoon the patient states that she is doing "pretty good." She says her back is sore. She reports that she has been off the POST ACUTE CARE REGISTERED NURSE pump since yesterday. There is no pain, numbness or tingling to the lower extremities. Nursing reports that the patient has had a bowel movement today. Exam Results 11/18/17 11/18/17 11/19/17 11/19/17 11/20/17 11/20/17 06:00 18:00 06:00 18:00 06:00 18:00 Intake Total 720 ml 1.9 ml 720 ml 480 ml Balance 720 ml 1.9 ml 720 ml 480 ml Intake Oral 720 ml 720 ml 480 ml IV Total 1.9 ml # Voids 4 4 3 6 5 # Bowel Movements 0 0 4 Vital Signs Date Time Temp Pulse Resp B/P (MAP) Pulse Ox O2 Delivery O2 Flow Rate FiO2 11/20/17 15:23 49 11/20/17 14:03 16 11/20/17 14:00 16 11/20/17 13:57 94 Room Air 11/20/17 12:29 97.9 54 17 114/55 (74) 94 11/20/17 11:37 99 Nasal Cannula 3.00 11/20/17 08:47 97.7 56 18 139/63 (88) 99 11/20/17 07:12 56 11/20/17 05:25 18 11/20/17 05:18 18 11/20/17 05:00 98.6 54 17 103/69 (80) 95 11/20/17 04:55 18 11/20/17 00:50 97.6 57 17 102/52 (69) 98 11/19/17 22:11 18 11/19/17 21:00 95 Nasal Cannula 3.00 11/19/17 20:54 98 Nasal Cannula 3.00 11/19/17 20:40 97.2 61 17 114/59 (77) 98 11/19/17 19:49 60 11/19/17 16:11 64 11/19/17 15:37 97.9 77 20 115/68 (84) 98 11/19/17 14:00 16 11/19/17 12:11 75 11/19/17 11:23 98.0 74 20 109/62 (78) 96 11/19/17 09:29 98 Nasal Cannula 3.00 11/19/17 08:20 97.3 68 20 138/78 (98) 98 11/19/17 07:00 92 11/19/17 07:00 96 Nasal Cannula 3.00 11/19/17 06:00 18 11/19/17 05:36 97.4 68 18 116/79 (91) 96 11/19/17 01:15 62 11/19/17 00:51 97.1 69 18 134/87 (103) 94 11/19/17 00:30 61 11/18/17 22:55 Nasal Cannula 3.00 11/18/17 21:20 96 Nasal Cannula 3.00 11/18/17 21:09 18 11/18/17 21:03 98.0 80 18 161/80 (107) 94 11/18/17 20:30 56 11/18/17 16:15 55 11/18/17 15:44 97.3 61 20 139/72 (94) 93 11/18/17 15:16 20 11/18/17 12:13 73 11/18/17 11:40 97.1 72 20 132/77 (95) 97 11/18/17 08:45 96 Nasal Cannula 4.00 11/18/17 08:39 97.3 76 20 140/91 (107) 96 11/18/17 07:52 95 Nasal Cannula 2.00 11/18/17 06:00 16 11/18/17 04:00 97.0 70 18 181/97 (125) 97 11/18/17 00:20 98.3 103 20 133/64 (87) 96 11/17/17 22:40 18 11/17/17 22:39 18 11/17/17 20:00 95 Nasal Cannula 3.00 11/17/17 20:00 98.0 92 22 167/92 (117) 95 Physical Examination GENERAL: Awake & alert, readily interacts, affect essentially normal, no apparent distress. MUSCULOSKELETAL: GARCES w/o difficulty. Extremities NTTP. Thoracolumbar spine mildly TTP, dressing intact to surgical incision & FRED drain insertion, there is serosanguinous drainage from the inferior portion of the incision still. NEUROLOGICAL: AAOx3. Speech clear & appropriate. Follows simple commands w/o difficulty. Sensation to light touch to all extremities. Motor strength 5/5 to all major flexion & extension muscle groups. Lab, Micro, Other Results Recent Impressions Chest X-Ray 11/18/17 0800 Signed Impressions: Service Date/Time: Saturday, November 18, 2017 10:39 - CONCLUSION: Interval improvement. Minimal parenchymal changes persist left base. Garo Mejia MD FACR Laboratory Tests Test 11/18/17 06:39 11/19/17 04:05 White Blood Count 12.4 TH/MM3 Red Blood Count 3.97 MIL/MM3 Hemoglobin 11.7 GM/DL Hematocrit 35.4 % Mean Corpuscular Volume 89.1 FL Mean Corpuscular Hemoglobin 29.4 PG Mean Corpuscular Hemoglobin Concent 33.0 % Red Cell Distribution Width 16.4 % Platelet Count 257 TH/MM3 Mean Platelet Volume 8.5 FL Neutrophils (%) (Auto) 76.4 % Lymphocytes (%) (Auto) 13.2 % Monocytes (%) (Auto) 10.3 % Eosinophils (%) (Auto) 0.0 % Basophils (%) (Auto) 0.1 % Neutrophils # (Auto) 9.5 TH/MM3 Lymphocytes # (Auto) 1.6 TH/MM3 Monocytes # (Auto) 1.3 TH/MM3 Eosinophils # (Auto) 0.0 TH/MM3 Basophils # (Auto) 0.0 TH/MM3 CBC Comment DIFF FINAL Differential Comment Blood Urea Nitrogen 33 MG/DL 43 MG/DL Creatinine 1.02 MG/DL 1.26 MG/DL Random Glucose 80 MG/DL 75 MG/DL Calcium Level 9.1 MG/DL 8.8 MG/DL Magnesium Level 2.4 MG/DL 2.1 MG/DL Sodium Level 139 MEQ/L 140 MEQ/L Potassium Level 3.4 MEQ/L 3.6 MEQ/L Chloride Level 103 MEQ/L 103 MEQ/L Carbon Dioxide Level 32.1 MEQ/L 27.5 MEQ/L Anion Gap 4 MEQ/L 10 MEQ/L Estimat Glomerular Filtration Rate 53 ML/MIN 42 ML/MIN Free Thyroxine 0.95 NG/DL Free Triiodothyronine (T3) pg/dL 1.50 PG/ML Thyroid Stimulating Hormone 3rd Gen 1.640 uIU/ML Medical Decision Making Impression and Plan Impression: Preoperative Diagnosis: (1) Thoracic stenosis (2) Thoracic myelopathy (3) Lumbar degenerative disc disease 1. Severe T11-12 stenosis 2. Thoracic myelopathy 3. L1-2 adjacent level degeneration above previous L2-5 fusion 4. Thoracolumbar acquired sagittal deformity The patient continues to do well and her pain is well controlled. She has no myelopathy. Surgical incision with some serosanguinous drainage to it. PT recommends inpatient rehab. The patient states that she does not want to go to rehab but wants to go home at discharge. POD #8 () s/p: 1. T11 12 decompressive laminectomy, medial facetectomy for spinal cord decompression 2. L1-2 bilateral decompressive semi-hemilaminectomy, Saenz-Guerrier osteotomy 3. L1-2 discectomy, interbody fusion,PEEK cage, lamina autograft bone, demineralized bone and stem cell matrix, cancellus bone chips. 4. Bilateral T10-L2 posterior lateral fusion with lamina autograft, demineralized bone and stem cell matrix, cancellus bone chips 5. Bilateral T10-L3 posterior spinal instrumentation, revision previous L2-3 instrumentation. Postoperative Diagnosis: (1) Thoracic stenosis (2) Thoracic myelopathy (3) Lumbar degenerative disc disease 1. Severe T11-12 stenosis 2. Thoracic myelopathy 3. L1-2 adjacent level degeneration above previous L2-5 fusion 4. Thoracolumbar acquired sagittal deformity Plan: Medical management per Food Services Manager/Hospitalist. Frequent neuro checks. Mobilise patient w/assistance. TLSO brace when OOB. Keep patient off back. Change dressing to surgical incision as needed and reinforce incision with steri -strips if they fall off. Plan to discharge patient when medically indicated. Horacio Rendon [facility] Nov 20, 2017 16:52
[2017-11-20] MEDS: METHOCARBAMOL 500 MG TAB PO PRN (20:48)
[2017-11-21] VITALS (9 sets, daily range): BP systolic 128–157; BP diastolic 60–72; PULSE 55–70; RESP 17–18; TEMP 97.6–98.6; O2SAT 94–96
[2017-11-21] MEDS: ACETAMINOPHEN/HYDROcodone 325 MG/10 MG TAB PO PRN ×3 (00:34→21:05)
--- NOTE | 2017-11-21 01:49 | RADRPT ---
EXAM DATE/TIME: 11/21/2017 01:17 CORRECTION Corrected on: November 21, 2017; [facility] COMPARISON: No previous studies available for comparison. INDICATIONS : Back pain. RADIATION DOSE: 28.09 CTDIvol (mGy) ; Combined studies - Thoracic Spine/Lumbar Spine MEDICAL HISTORY : Cardiovascular disease. Hypertension. SURGICAL HISTORY : Hysterectomy. ENCOUNTER: Initial ACUITY: 1 day PAIN SCALE: 8/10 LOCATION: Bilateral back TECHNIQUE: Volumetric scanning of the thoracic spine was performed. Multiplanar reconstructions in the sagittal , coronal and oblique axial planes were performed. Using automated exposure control and adjustment o f the mA and/or kV according to patient size, radiation dose was kept as low as reasonably achievable to obtain optimal diagnostic quality images. DICOM format image data is available electronically f or review and comparison. FINDINGS: No significant compression deformities are seen. There are post surgical changes with transpedicular screws involving the lower thoracic spine from T9 all the way through lumbar spine. T1-T2: No appreciable compromise to the thecal sac, spinal cord, or the exiting nerve roots are seen. The neural foramina are grossly patent bilaterally. T2-T3: No appreciable compromise to the thecal sac, spinal cord, or the exiting nerve roots are seen. The neural foramina are grossly patent bilaterally. T3-T4: No appreciable compromise to the thecal sac, spinal cord, or the exiting nerve roots are seen. The neural foramina are grossly patent bilaterally. T4-T5: No appreciable compromise to the thecal sac, spinal cord, or the exiting nerve roots are seen. The neural foramina are grossly patent bilaterally. T5-T6: No appreciable compromise to the thecal sac, spinal cord, or the exiting nerve roots are seen. The neural foramina are grossly patent bilaterally. T6-T7: No appreciable compromise to the thecal sac, spinal cord, or the exiting nerve roots are seen. The neural foramina are grossly patent bilaterally. T7-T8: No appreciable compromise to the thecal sac, spinal cord, or the exiting nerve roots are seen. The neural foramina are grossly patent bilaterally. T8-T9: No appreciable compromise to the thecal sac, spinal cord, or the exiting nerve roots are seen. The neural foramina are grossly patent bilaterally. T9-T10: No appreciable compromise to the thecal sac, spinal cord, or the exiting nerve roots are see n. The neural foramina are grossly patent bilaterally. T10-T11: No appreciable compromise to the thecal sac, spinal cord, or the exiting nerve roots are se en. The neural foramina are grossly patent bilaterally. T11-T12: No appreciable compromise to the thecal sac, spinal cord, or the exiting nerve roots are se en. The neural foramina are grossly patent bilaterally. T12-L1: THERE IS LAMINECTOMY WITH SOFT TISSUE DENSITY AND FLUID COLLECTIONS IN THE OPERATIVE BED POST ERIORLY WHICH EXTEND TO THE THECAL SAC AND EPIDURAL SPACE NEXT DIFFICULT TO EVALUATE FOR THECAL SAC S TENOSIS. CONCLUSION: Postsurgical changes and laminectomy changes at T12-L1 on thecal sac stenosis is diff icult to exclude. There is slight fluid on soft tissue density within the operative bed could be post surgical change, however infectious processes is also difficult to exclude. Bette Lazo MD on November 21, 2017 at 2:09 Board Certified Radiologist. This report was verified electronically.
--- NOTE | 2017-11-21 02:10 | RADRPT ---
EXAM DATE/TIME: 11/21/2017 01:19 [facility] COMPARISON: No previous studies available for comparison. INDICATIONS : Back pain. RADIATION DOSE: 28.55 CTDIvol (mGy) ; Combined studies - Thoracic Spine/Lumbar Spine MEDICAL HISTORY : Cardiovascular disease. Hypertension. SURGICAL HISTORY : Hysterectomy. back ENCOUNTER: Initial ACUITY: 1 day PAIN SCALE: 8/10 LOCATION: Bilateral back TECHNIQUE: Volumetric scanning of the lumbar spine was performed. Multiplanar reconstructions in the sagittal, coronal and oblique axial planes were performed. Using automated exposure control and adjustment of the mA and/or kV according to patient size, radiation dose was kept as low as reasonably achievable t o obtain optimal diagnostic quality images. DICOM format image data is available electronically for review and comparison. FINDINGS: Surgical screws traverse the bodies of T12-L4 with posterior stabilization hardware in place. T12-L1: There is evidence for prior laminectomy and there is some fluid collection within the operative bed p osteriorly extending to the subcutaneous tissue. It is difficult to evaluate for thecal sac stenosis since the post surgical changes extending to the epidural space and blend in with the rest of the the kelsie sac and soft tissues. There is also evidence for anterior fusion at this level. There are hypertr ophic changes with degenerative change throughout. Chronic atherosclerotic calcifications are seen wi thout any definite aneurysmal dilatations for technique. L1-L2: There is no evidence for any significant compromise to the thecal sac, or the exiting nerve roots. N o appreciable thecal sac stenosis is seen. The neural foramina and lateral recess appear patent bila terally. L2-L3: There is no evidence for any significant compromise to the thecal sac, or the exiting nerve roots. N o appreciable thecal sac stenosis is seen. The neural foramina and lateral recess appear patent bila terally. L3-L4: There is no evidence for any significant compromise to the thecal sac, or the exiting nerve roots. N o appreciable thecal sac stenosis is seen. The neural foramina and lateral recess appear patent bila terally. L4-L5: There is no evidence for any significant compromise to the thecal sac, or the exiting nerve roots. N o appreciable thecal sac stenosis is seen. The neural foramina and lateral recess appear patent bila terally. L5-S1: There is no evidence for any significant compromise to the thecal sac, or the exiting nerve roots. N o appreciable thecal sac stenosis is seen. The neural foramina and lateral recess appear patent bila terally. CONCLUSION: Postsurgical and degenerative changes and there is evidence for laminectomy at T12-L1 with soft tissue density extending from the laminectomy sites the epidural space and thecal sac comp romise and stenosis is difficult to evaluate. Findings postsurgical changes, however an infectious et iology is also difficult to exclude. Bette Lazo MD on November 21, 2017 at 2:04 Board Certified Radiologist. This report was verified electronically.
[2017-11-21] MEDS: INSULIN NovoLIN REGULAR SUPPLEMENTAL SCALE SQ SCH ×4 (07:51→21:00)
[2017-11-21] MEDS: PANTOPRAZOLE SOD 40 MG DELAYED RELEASE TAB PO SCH (08:29)
[2017-11-21] MEDS: MULTIVITAMINS/MINERALS THERAPEUTIC TAB PO SCH ×2 (08:29→21:04)
[2017-11-21] MEDS: DOCUSATE SODIUM 50 MG/SENNA 8.6 MG TAB PO SCH ×2 (08:29→21:04)
[2017-11-21] MEDS: METOPROLOL TARTRATE 25 MG TAB PO SCH ×2 (08:29→21:04)
[2017-11-21] MEDS: DILTIAZEM-CD 180 MG CAP ER PO SCH ×2 (08:29→21:04)
[2017-11-21] MEDS: BISACODYL 10 MG SUPP RECTAL SCH (08:29)
[2017-11-21] MEDS: GABAPENTIN 300 MG CAP PO SCH ×2 (08:29→21:04)
[2017-11-21] MEDS: CALCIUM/VITAMIN D 250 MG/125 U TAB PO SCH ×2 (08:29→21:04)
--- NOTE | 2017-11-21 15:46 | HHI.NSPN ---
History Chief Complaint: Back still sore. Interval History The 11/12: The patient presented to [facility] [address] for a T11-12 decompressive laminectomy, a L1-2 bilateral decompressive semi-hemilaminectomy with discectomy , interbody fusion and PEEK cage, and a bilateral T10-L2 posterior lateral fusion and posterior spinal instrumentation with revision of previous L2-3 instrumentation. Post-operatively she was admitted to the [facility]SC unit for further monitoring and care. 11/13: The patient is seen in rounds this morning with Dr Francois. She is awake and alert and visiting with her . She states that she is hurting to her back but her feet are less numb than they were. 11/14: This morning the patient is awake and alert when seen. She says she is doing good although she has soreness to her back. She denies any pain, numbness , tingling or weakness to the extremities but then qualifies that when examined and says the toes are still numb but better than before surgery. She remains on a ELEVATOR ADJUSTER pump for pain control. She was given an extra dose of furosemide for decreased urine output and renal function. 11/15: The patient yesterday became hypotensive after using the ELEVATOR ADJUSTER pump and receiving furosemide. She was being given a bolus of normal saline and had received approximately 200 mL when she developed dyspnea. The flow rate on her nasal cannula was increased, the saline bolus was stopped and a neb treatment ordered. The patient was discussed with the Composition Molder who evaluated her. A chest x-ray demonstrated a left lower lobe infiltrate and he began treatment for pneumonia. Due to a downward trend in her haemoglobin and her being symptomatic she was transfused two units of PRBCs. Nephrology and Cardiology were consulted by the Composition Molder and also evaluated her yesterday. This morning when seen the patient is awake and alert. Her is setting up her breakfast tray. She states that she hurts all over, especially to the back. Nursing reports that the dressing to the patient's back was changed three times yesterday but none at night. 11/16: Pt awake and alert. Complains of incisional soreness. No radiculopathy in UE or LEs. Some extension of incisional pain into the ribs. No chest pain or sob. No abdominal pain. No paresthesias in UEs or LEs. 11/17: Pt awake and alert. Complains of incisional soreness. She is on Dilaudid ELEVATOR ADJUSTER. No chest pain or sob. 11/18: The patient has her eyes closed when seen but opens to voice. She readily interacts and says her back is sore but doing okay. She has the ELEVATOR ADJUSTER control in her hand. She denies any pain, numbness or tingling to the extremities. Nursing stated that this morning when she came in the patient was restless and agitated due to pain. Nursing gave her the hydrocodone which relieved her pain. Nursing will intermittently reminded the patient she has the ELEVATOR ADJUSTER pump available when she appears restless/uncomfortable. During the night it was reported that the dressing to the surgical incision had to be changed twice due to it's being saturated. 11/19: This morning the patient was initially seen sitting on the bedside commode with the TLSO brace on. She stated that she was doing terrible due to her back pain. She denied any pain, numbness or tingling to the lower extremities. The patient states that she did not use the ELEVATOR ADJUSTER during the night and only used it once today so far. 11/20: When seen this afternoon the patient states that she is doing "pretty good." She says her back is sore. She reports that she has been off the ELEVATOR ADJUSTER pump since yesterday. There is no pain, numbness or tingling to the lower extremities. Nursing reports that the patient has had a bowel movement today. 11/21: Today the patient is doing good when seen. Her is visiting with her. She still says her back is sore. She does say she has some chronic numbness to the left anterior thigh otherwise she has no pain, numbness or tingling to the lower extremities. She went for CT scans of the thoracic and lumbar spines yesterday. This practitioner spoke with the Hospitalist earlier today who felt that the patient is able to be discharged from a medical standpoint. The patient was on her back when seen and it was reinforced that she needs to stay off it so that the surgical incision will heal better and not have pressure on it. Exam Results 11/19/17 11/19/17 11/20/17 11/20/17 11/21/17 11/21/17 06:00 18:00 06:00 18:00 06:00 18:00 Intake Total 1.9 ml 720 ml 480 ml 480 ml 240 ml Balance 1.9 ml 720 ml 480 ml 480 ml 240 ml Intake Oral 720 ml 480 ml 480 ml 240 ml IV Total 1.9 ml # Voids 3 6 5 4 5 # Bowel Movements 0 4 1 Vital Signs Date Time Temp Pulse Resp B/P (MAP) Pulse Ox O2 Delivery O2 Flow Rate FiO2 11/21/17 11:55 97.8 55 18 147/67 (93) 94 11/21/17 09:09 59 11/21/17 08:07 97.9 56 18 133/60 (84) 96 11/21/17 05:00 97.6 56 17 128/67 (87) 95 11/21/17 00:00 97.6 62 17 157/72 (100) 94 11/20/17 21:00 60 11/20/17 20:30 97.4 56 17 139/62 (87) 94 11/20/17 18:17 16 11/20/17 17:40 97 Nasal Cannula 3.00 11/20/17 17:23 98.2 56 18 128/59 (82) 97 11/20/17 16:03 52 11/20/17 15:23 49 11/20/17 14:00 16 11/20/17 13:57 94 Room Air 11/20/17 12:29 97.9 54 17 114/55 (74) 94 11/20/17 11:37 99 Nasal Cannula 3.00 11/20/17 08:47 97.7 56 18 139/63 (88) 99 11/20/17 07:12 56 11/20/17 05:25 18 11/20/17 05:18 18 11/20/17 05:00 98.6 54 17 103/69 (80) 95 11/20/17 04:55 18 11/20/17 00:50 97.6 57 17 102/52 (69) 98 11/19/17 22:11 18 11/19/17 21:00 95 Nasal Cannula 3.00 11/19/17 20:54 98 Nasal Cannula 3.00 11/19/17 20:40 97.2 61 17 114/59 (77) 98 11/19/17 19:49 60 11/19/17 16:11 64 11/19/17 15:37 97.9 77 20 115/68 (84) 98 11/19/17 14:00 16 11/19/17 12:11 75 11/19/17 11:23 98.0 74 20 109/62 (78) 96 11/19/17 09:29 98 Nasal Cannula 3.00 11/19/17 08:20 97.3 68 20 138/78 (98) 98 11/19/17 07:00 92 11/19/17 07:00 96 Nasal Cannula 3.00 11/19/17 06:00 18 11/19/17 05:36 97.4 68 18 116/79 (91) 96 11/19/17 01:15 62 11/19/17 00:51 97.1 69 18 134/87 (103) 94 11/19/17 00:30 61 11/18/17 22:55 Nasal Cannula 3.00 11/18/17 21:20 96 Nasal Cannula 3.00 11/18/17 21:09 18 11/18/17 21:03 98.0 80 18 161/80 (107) 94 11/18/17 20:30 56 11/18/17 16:15 55 11/18/17 15:44 97.3 61 20 139/72 (94) 93 Physical Examination GENERAL: Awake & alert, readily interacts, affect normal, no apparent distress. MUSCULOSKELETAL: GARCES w/o difficulty. Extremities NTTP. Thoracolumbar spine mildly TTP, dressing intact to surgical incision & FRED drain insertion, there is serosanguinous drainage on the gauze under the dressing but there is no evident drainage from the incision and none is able to be expressed from it. NEUROLOGICAL: AAOx3. Speech clear & appropriate. Follows simple commands w/o difficulty. Sensation to light touch decreased to the left anterior thigh, o/w intact to the rest of the lower extremities. Motor strength 5/5 to all major flexion & extension muscle groups of the lower extremities. Lab, Micro, Other Results Recent Impressions Thoracic Spine CT 11/20/17 0000 Signed Impressions: Service Date/Time: October 01:17 - CONCLUSION: Postsurgical changes and laminectomy changes at T12-L1 on thecal sac stenosis is difficult to exclude. There is slight fluid on soft tissue density within the operative bed could be postsurgical change, however infectious processes is also difficult to exclude. Bette Lazo MD Lumbar Spine CT 11/20/17 0000 Signed Impressions: Service Date/Time: October 01:19 - CONCLUSION: Postsurgical and degenerative changes and there is evidence for laminectomy at T12-L1 with soft tissue density extending from the laminectomy sites the epidural space and thecal sac compromise and stenosis is difficult to evaluate. Findings postsurgical changes, however an infectious etiology is also difficult to exclude. Bette Lazo MD Laboratory Tests Test 11/19/17 04:05 Blood Urea Nitrogen 43 MG/DL Creatinine 1.26 MG/DL Random Glucose 75 MG/DL Calcium Level 8.8 MG/DL Magnesium Level 2.1 MG/DL Sodium Level 140 MEQ/L Potassium Level 3.6 MEQ/L Chloride Level 103 MEQ/L Carbon Dioxide Level 27.5 MEQ/L Anion Gap 10 MEQ/L Estimat Glomerular Filtration Rate 42 ML/MIN Medical Decision Making Impression and Plan Impression: Preoperative Diagnosis: (1) Thoracic stenosis (2) Thoracic myelopathy (3) Lumbar degenerative disc disease 1. Severe T11-12 stenosis 2. Thoracic myelopathy 3. L1-2 adjacent level degeneration above previous L2-5 fusion 4. Thoracolumbar acquired sagittal deformity The patient is doing good and her pain remains controlled. She does report some left anterior thigh numbness which she states is chronic. Surgical incision with well approximated w/o any evident drainage from it. PT recommends inpatient rehab. The patient states that she does not want to go to rehab but wants to go home at discharge. CT thoracic spine demonstrates post-surgical & laminectomy changes at T12-L1 w/slight fluid density within the operative bed which may be post- surgical but infectious process is not excluded. CT lumbar spine demonstrates same as the CT thoracic spine. POD #9 () s/p: 1. T11 12 decompressive laminectomy, medial facetectomy for spinal cord decompression 2. L1-2 bilateral decompressive semi-hemilaminectomy, Saenz-Guerrier osteotomy 3. L1-2 discectomy, interbody fusion,PEEK cage, lamina autograft bone, demineralized bone and stem cell matrix, cancellus bone chips. 4. Bilateral T10-L2 posterior lateral fusion with lamina autograft, demineralized bone and stem cell matrix, cancellus bone chips 5. Bilateral T10-L3 posterior spinal instrumentation, revision previous L2-3 instrumentation. Postoperative Diagnosis: (1) Thoracic stenosis (2) Thoracic myelopathy (3) Lumbar degenerative disc disease 1. Severe T11-12 stenosis 2. Thoracic myelopathy 3. L1-2 adjacent level degeneration above previous L2-5 fusion 4. Thoracolumbar acquired sagittal deformity Plan: Discussed plan of care with Hospitalist. Discussed plan of care with patient & . Discussed plan of care with Nursing. Medical management per Composition Molder/Hospitalist. Neuro checks. Mobilise patient w/assistance. TLSO brace when OOB. Keep patient off back. Change dressing to surgical incision as needed and reinforce incision with steri -strips if they fall off. Patient medically cleared for discharge. Horacio Rendon [facility] Nov 21, 2017 15:46
[2017-11-22 00:30] VITALS: BP 118/61; PULSE 60; RESP 17; TEMP 98.6; O2SAT 95
[2017-11-22 05:17] VITALS: BP 151/56; PULSE 58; RESP 17; TEMP 98; O2SAT 95
[2017-11-22] MEDS: INSULIN NovoLIN REGULAR SUPPLEMENTAL SCALE SQ SCH (08:00)
[2017-11-22 08:09] VITALS: BP 135/63; PULSE 63; RESP 18; TEMP 98.3; O2SAT 94
[2017-11-22] MEDS: CALCIUM/VITAMIN D 250 MG/125 U TAB PO SCH (08:22)
[2017-11-22] MEDS: PANTOPRAZOLE SOD 40 MG DELAYED RELEASE TAB PO SCH (08:23)
[2017-11-22] MEDS: MULTIVITAMINS/MINERALS THERAPEUTIC TAB PO SCH (08:23)
[2017-11-22] MEDS: DOCUSATE SODIUM 50 MG/SENNA 8.6 MG TAB PO SCH (08:23)
[2017-11-22] MEDS: GABAPENTIN 300 MG CAP PO SCH (08:23)
[2017-11-22] MEDS: ACETAMINOPHEN/HYDROcodone 325 MG/10 MG TAB PO PRN (08:23)
[2017-11-22] MEDS: METOPROLOL TARTRATE 25 MG TAB PO SCH (08:23)
[2017-11-22] MEDS: DILTIAZEM-CD 180 MG CAP ER PO SCH (08:23)
[2017-11-22] MEDS: BISACODYL 10 MG SUPP RECTAL SCH (08:24)
[2017-11-22 09:45] VITALS: O2SAT 97
--- NOTE | 2017-11-22 10:00 | HHI.NSPN ---
History Chief Complaint: Back is sore today. Interval History The 11/12: The patient presented to [facility] for a T11-12 decompressive laminectomy, a L1-2 bilateral decompressive semi-hemilaminectomy with discectomy , interbody fusion and PEEK cage, and a bilateral T10-L2 posterior lateral fusion and posterior spinal instrumentation with revision of previous L2-3 instrumentation. Post-operatively she was admitted to the ISC unit for further monitoring and care. 11/13: The patient is seen in rounds this morning with Dr Francois. She is awake and alert and visiting with her . She states that she is hurting to her back but her feet are less numb than they were. 11/14: This morning the patient is awake and alert when seen. She says she is doing good although she has soreness to her back. She denies any pain, numbness , tingling or weakness to the extremities but then qualifies that when examined and says the toes are still numb but better than before surgery. She remains on a PRINCIPAL LIBRARIAN pump for pain control. She was given an extra dose of furosemide for decreased urine output and renal function. 11/15: The patient yesterday became hypotensive after using the PRINCIPAL LIBRARIAN pump and receiving furosemide. She was being given a bolus of normal saline and had received approximately 200 mL when she developed dyspnea. The flow rate on her nasal cannula was increased, the saline bolus was stopped and a neb treatment ordered. The patient was discussed with the Radio Mechanic Apprentice who evaluated her. A chest x-ray demonstrated a left lower lobe infiltrate and he began treatment for pneumonia. Due to a downward trend in her haemoglobin and her being symptomatic she was transfused two units of PRBCs. Nephrology and Cardiology were consulted by the Radio Mechanic Apprentice and also evaluated her yesterday. This morning when seen the patient is awake and alert. Her is setting up her breakfast tray. She states that she hurts all over, especially to the back. Nursing reports that the dressing to the patient's back was changed three times yesterday but none at night. 11/16: Pt awake and alert. Complains of incisional soreness. No radiculopathy in UE or LEs. Some extension of incisional pain into the ribs. No chest pain or sob. No abdominal pain. No paresthesias in UEs or LEs. 11/17: Pt awake and alert. Complains of incisional soreness. She is on Dilaudid PRINCIPAL LIBRARIAN. No chest pain or sob. 11/18: The patient has her eyes closed when seen but opens to voice. She readily interacts and says her back is sore but doing okay. She has the PRINCIPAL LIBRARIAN control in her hand. She denies any pain, numbness or tingling to the extremities. Nursing stated that this morning when she came in the patient was restless and agitated due to pain. Nursing gave her the hydrocodone which relieved her pain. Nursing will intermittently reminded the patient she has the PRINCIPAL LIBRARIAN pump available when she appears restless/uncomfortable. During the night it was reported that the dressing to the surgical incision had to be changed twice due to it's being saturated. 11/19: This morning the patient was initially seen sitting on the bedside commode with the TLSO brace on. She stated that she was doing terrible due to her back pain. She denied any pain, numbness or tingling to the lower extremities. The patient states that she did not use the PRINCIPAL LIBRARIAN during the night and only used it once today so far. 11/20: When seen this afternoon the patient states that she is doing "pretty good." She says her back is sore. She reports that she has been off the PRINCIPAL LIBRARIAN pump since yesterday. There is no pain, numbness or tingling to the lower extremities. Nursing reports that the patient has had a bowel movement today. 11/21: Today the patient is doing good when seen. Her is visiting with her. She still says her back is sore. She does say she has some chronic numbness to the left anterior thigh otherwise she has no pain, numbness or tingling to the lower extremities. She went for CT scans of the thoracic and lumbar spines yesterday. This practitioner spoke with the Hospitalist earlier today who felt that the patient is able to be discharged from a medical standpoint. The patient was on her back when seen and it was reinforced that she needs to stay off it so that the surgical incision will heal better and not have pressure on it. 11/22: The patient is awake and watching TV in bed with her present. She states her back is really sore today due to the amount of walking that she did yesterday. She again is flat on her back and was instructed on the need to stay off the surgical incision, which she verbalised. She does have numbness to the left anterior thigh that is chronic per the patient. Otherwise she does not have any pain, numbness or tingling to the extremities. Her motor strength is normal and her surgical incision appeared to be dry when examined. Exam Results 11/20/17 11/20/17 11/21/17 11/21/17 11/22/17 11/22/17 06:00 18:00 06:00 18:00 06:00 18:00 Intake Total 480 ml 480 ml 240 ml 240 ml 240 ml Balance 480 ml 480 ml 240 ml 240 ml 240 ml Intake Oral 480 ml 480 ml 240 ml 240 ml 240 ml # Voids 5 4 5 2 3 # Bowel Movements 4 1 Vital Signs Date Time Temp Pulse Resp B/P (MAP) Pulse Ox O2 Delivery O2 Flow Rate FiO2 11/22/17 08:09 98.3 63 18 135/63 (87) 94 11/22/17 05:17 98.0 58 17 151/56 (87) 95 11/22/17 00:30 98.6 60 17 118/61 (80) 95 11/21/17 23:00 68 11/21/17 21:06 94 Nasal Cannula 3.00 11/21/17 20:18 98.1 70 17 143/65 (91) 94 11/21/17 15:58 98.6 61 18 145/67 (93) 94 11/21/17 15:21 11/21/17 11:55 97.8 55 18 147/67 (93) 94 11/21/17 09:09 59 11/21/17 08:07 97.9 56 18 133/60 (84) 96 11/21/17 05:00 97.6 56 17 128/67 (87) 95 11/21/17 00:00 97.6 62 17 157/72 (100) 94 11/20/17 21:00 60 11/20/17 20:30 97.4 56 17 139/62 (87) 94 11/20/17 18:17 16 11/20/17 17:40 97 Nasal Cannula 3.00 11/20/17 17:23 98.2 56 18 128/59 (82) 97 11/20/17 16:03 52 11/20/17 15:23 49 11/20/17 14:00 16 11/20/17 13:57 94 Room Air 11/20/17 12:29 97.9 54 17 114/55 (74) 94 11/20/17 11:37 99 Nasal Cannula 3.00 11/20/17 08:47 97.7 56 18 139/63 (88) 99 11/20/17 07:12 56 11/20/17 05:25 18 11/20/17 05:18 18 11/20/17 05:00 98.6 54 17 103/69 (80) 95 11/20/17 04:55 18 11/20/17 00:50 97.6 57 17 102/52 (69) 98 11/19/17 22:11 18 11/19/17 21:00 95 Nasal Cannula 3.00 11/19/17 20:54 98 Nasal Cannula 3.00 11/19/17 20:40 97.2 61 17 114/59 (77) 98 11/19/17 19:49 60 11/19/17 16:11 64 11/19/17 15:37 97.9 77 20 115/68 (84) 98 11/19/17 14:00 16 11/19/17 12:11 75 11/19/17 11:23 98.0 74 20 109/62 (78) 96 Physical Examination GENERAL: Awake & alert in bed, readily interacts, affect normal, no apparent distress. MUSCULOSKELETAL: GARCES w/o difficulty. Extremities NTTP. Thoracolumbar spine mildly TTP, dressing intact to surgical incision & FRED drain insertion and appears dry w/o any evident drainage, no erythema or streaking. NEUROLOGICAL: AAOx3. Speech clear & appropriate. Follows simple commands w/o difficulty. Sensation to light touch decreased to the left anterior thigh, o/w intact to the rest of the lower extremities. Motor strength 5/5 to all major flexion & extension muscle groups of the lower extremities. Lab, Micro, Other Results Recent Impressions Thoracic Spine CT 11/20/17 0000 Signed Impressions: Service Date/Time: October 01:17 - CONCLUSION: Postsurgical changes and laminectomy changes at T12-L1 on thecal sac stenosis is difficult to exclude. There is slight fluid on soft tissue density within the operative bed could be postsurgical change, however infectious processes is also difficult to exclude. Bette Lazo MD Lumbar Spine CT 11/20/17 0000 Signed Impressions: Service Date/Time: October 01:19 - CONCLUSION: Postsurgical and degenerative changes and there is evidence for laminectomy at T12-L1 with soft tissue density extending from the laminectomy sites the epidural space and thecal sac compromise and stenosis is difficult to evaluate. Findings postsurgical changes, however an infectious etiology is also difficult to exclude. Bette Lazo MD Medical Decision Making Impression and Plan Impression: Preoperative Diagnosis: (1) Thoracic stenosis (2) Thoracic myelopathy (3) Lumbar degenerative disc disease 1. Severe T11-12 stenosis 2. Thoracic myelopathy 3. L1-2 adjacent level degeneration above previous L2-5 fusion 4. Thoracolumbar acquired sagittal deformity The patient continues to do well, more soreness to the back today but pain overall appears controlled. She does have some chronic left anterior thigh numbness. Surgical incision with well approximated and appears dry w/o any evident drainage from it. PT recommends inpatient rehab. The patient states that she does not want to go to rehab but wants to go home at discharge. CT thoracic spine demonstrates post-surgical & laminectomy changes at T12-L1 w/slight fluid density within the operative bed which may be post- surgical but infectious process is not excluded. CT lumbar spine demonstrates same as the CT thoracic spine. POD #10 () s/p: 1. T11 12 decompressive laminectomy, medial facetectomy for spinal cord decompression 2. L1-2 bilateral decompressive semi-hemilaminectomy, Saenz-Guerrier osteotomy 3. L1-2 discectomy, interbody fusion,PEEK cage, lamina autograft bone, demineralized bone and stem cell matrix, cancellus bone chips. 4. Bilateral T10-L2 posterior lateral fusion with lamina autograft, demineralized bone and stem cell matrix, cancellus bone chips 5. Bilateral T10-L3 posterior spinal instrumentation, revision previous L2-3 instrumentation. Postoperative Diagnosis: (1) Thoracic stenosis (2) Thoracic myelopathy (3) Lumbar degenerative disc disease 1. Severe T11-12 stenosis 2. Thoracic myelopathy 3. L1-2 adjacent level degeneration above previous L2-5 fusion 4. Thoracolumbar acquired sagittal deformity Plan: Discussed plan of care with patient & . Discussed plan of care with Nursing. Medical management per Radio Mechanic Apprentice/Hospitalist. Neuro checks. Mobilise patient w/assistance. TLSO brace when OOB. Keep patient off back. Change dressing to surgical incision as needed and reinforce incision with steri -strips if they fall off. Patient medically cleared for discharge. Will discharge patient home today w/Home Health for nursing care and therapy. Follow up in 1 to 2 weeks in the office for a wound check. Horacio Rendon Nov 22, 2017 10:00
[2017-11-22] MEDS ORDERED: PERI PO (10:08)
[2017-11-22] MEDS ORDERED: HYDR-3516 PO (10:08)
[2017-11-22] MEDS ORDERED: METH500T3 PO (10:08)
[2017-11-22] MEDS ORDERED: BISA10R RECTAL (10:08)
--- NOTE | 2017-11-22 10:13 | HHI.FF ---
Face to Face Verification Diagnosis: (1) Thoracic spinal stenosis (2) Thoracic myelopathy (3) Lumbar degenerative disc disease (4) Status post laminectomy with spinal fusion Physical Therapy Order: Evaluate and Treat Occupational Therapy Order: Evaluate and Treat Home Health Nursing Order: Wound care and dressing changes Nursing assessment with vital signs I have seen patient Alcira Solis on 11/22/17. My clinical findings support the need for the requested home health care services because: Deconditioned w/ increased weakness Limited ability to care for self I certify that my clinical findings support that this patient is homebound because: Post-op weakness Unsafe to leave home unassisted Horacio Rendon [facility] Nov 22, 2017 10:13
--- NOTE | 2017-11-22 10:58 | HHI.DCPOC ---
Discharge Care Plan Diagnosis: (1) Thoracic spinal stenosis (2) Thoracic myelopathy (3) Lumbar degenerative disc disease (4) Status post laminectomy with spinal fusion Your Health Problems Are: Incision/Drains Exercise Tolerance Loss of Movements Goals to Promote Your Health * To prevent worsening of your condition and complications * To maintain your health at the optimal level When in bed avoid laying on the back and putting pressure on the surgical wound. Wear the TLSO brace when out of bed. No lifting, bending, pushing, pulling or other strenuous activity. Leave the dressing on over the surgical incisions for 1 week. After that you may take the outer dressing off but leave the steri-strips on and let them fall off on their own. No showering until the surgical incision is totally healed. Take the pain medication as prescribed. Avoid taking any medication that contains aspirin or NSAIDs (ibuprofen, naproxen , Motrin, Advil, Naprosyn), or any cholesterol medication for at least a month. Follow up in the office in 1 to 2 weeks for a wound check. Directions to Meet Your Goals Take your medications as prescribed Follow your dietary instruction Follow activity as directed When in bed avoid laying on the back and putting pressure on the surgical wound. Wear the TLSO brace when out of bed. No lifting, bending, pushing, pulling or other strenuous activity. Leave the dressing on over the surgical incisions for 1 week. After that you may take the outer dressing off but leave the steri-strips on and let them fall off on their own. No showering until the surgical incision is totally healed. Take the pain medication as prescribed. Avoid taking any medication that contains aspirin or NSAIDs (ibuprofen, naproxen , Motrin, Advil, Naprosyn), or any cholesterol medication for at least a month. Follow up in the office in 1 to 2 weeks for a wound check. Keep your appointments as scheduled Take your immunizations and boosters as scheduled If your symptoms worsen call your PCP, if no PCP go to Urgent Care Center or Emergency Room Smoking is Dangerous to Your Health. Avoid second hand smoke Call the 24-hour hour crisis hotline for domestic abuse at Horacio Rendon Nov 22, 2017 10:58
--- NOTE | 2017-11-22 11:04 | HHI.DS ---
Discharge Summary Admission Date Nov 12, 2017 at 05:47 Discharge Date: Nov 22, 2017 Admitting Diagnosis (1) Thoracic stenosis Diagnosis: Principal ICD Code: M48.04 - Spinal stenosis, thoracic region Status: Acute (2) Atrial fibrillation Diagnosis: Secondary ICD Code: I48.91 - Unspecified atrial fibrillation Status: Acute (3) Thoracic myelopathy Diagnosis: Secondary ICD Code: M47.14 - Other spondylosis with myelopathy, thoracic region Status: Acute (4) Lumbar degenerative disc disease Diagnosis: Secondary ICD Code: M51.36 - Other intervertebral disc degeneration, lumbar region Status: Chronic (5) Hypotension Diagnosis: Secondary ICD Code: I95.9 - Hypotension, unspecified Status: Resolved (6) Acute kidney injury superimposed on CKD Diagnosis: Secondary ICD Code: N17.9 - Acute kidney failure, unspecified; N18.9 - Chronic kidney disease, unspecified Status: Acute (7) COPD (chronic obstructive pulmonary disease) Diagnosis: Secondary ICD Code: J44.9 - Chronic obstructive pulmonary disease, unspecified Status: Chronic (8) HTN (hypertension) Diagnosis: Secondary ICD Code: I10 - Essential (primary) hypertension Status: Chronic (9) Abnormal thyroid stimulating hormone (TSH) level Diagnosis: Secondary ICD Code: R94.6 - Abnormal results of thyroid function studies Status: Acute CBC/BMP: 11/18/17 0639 11/19/17 0405 Hospital Course 11/12: The patient presented to [facility] for a T11-12 decompressive laminectomy, a L1-2 bilateral decompressive semi-hemilaminectomy with discectomy , interbody fusion and PEEK cage, and a bilateral T10-L2 posterior lateral fusion and posterior spinal instrumentation with revision of previous L2-3 instrumentation. Post-operatively she was admitted to the ISC unit for further monitoring and care. 11/13: The patient is seen in rounds this morning with Dr Francois. She is awake and alert and visiting with her . She states that she is hurting to her back but her feet are less numb than they were. 11/14: This morning the patient is awake and alert when seen. She says she is doing good although she has soreness to her back. She denies any pain, numbness , tingling or weakness to the extremities but then qualifies that when examined and says the toes are still numb but better than before surgery. She remains on a ENTERPRISE INTEGRATION DEVELOPER pump for pain control. She was given an extra dose of furosemide for decreased urine output and renal function. 11/15: The patient yesterday became hypotensive after using the ENTERPRISE INTEGRATION DEVELOPER pump and receiving furosemide. She was being given a bolus of normal saline and had received approximately 200 mL when she developed dyspnea. The flow rate on her nasal cannula was increased, the saline bolus was stopped and a neb treatment ordered. The patient was discussed with the Tallow Refiner who evaluated her. A chest x-ray demonstrated a left lower lobe infiltrate and he began treatment for pneumonia. Due to a downward trend in her haemoglobin and her being symptomatic she was transfused two units of PRBCs. Nephrology and Cardiology were consulted by the Tallow Refiner and also evaluated her yesterday. This morning when seen the patient is awake and alert. Her is setting up her breakfast tray. She states that she hurts all over, especially to the back. Nursing reports that the dressing to the patient's back was changed three times yesterday but none at night. 11/16: Pt awake and alert. Complains of incisional soreness. No radiculopathy in UE or LEs. Some extension of incisional pain into the ribs. No chest pain or sob. No abdominal pain. No paresthesias in UEs or LEs. 11/17: Pt awake and alert. Complains of incisional soreness. She is on Dilaudid ENTERPRISE INTEGRATION DEVELOPER. No chest pain or sob. 11/18: The patient has her eyes closed when seen but opens to voice. She readily interacts and says her back is sore but doing okay. She has the ENTERPRISE INTEGRATION DEVELOPER control in her hand. She denies any pain, numbness or tingling to the extremities. Nursing stated that this morning when she came in the patient was restless and agitated due to pain. Nursing gave her the hydrocodone which relieved her pain. Nursing will intermittently reminded the patient she has the ENTERPRISE INTEGRATION DEVELOPER pump available when she appears restless/uncomfortable. During the night it was reported that the dressing to the surgical incision had to be changed twice due to it's being saturated. 11/19: This morning the patient was initially seen sitting on the bedside commode with the TLSO brace on. She stated that she was doing terrible due to her back pain. She denied any pain, numbness or tingling to the lower extremities. The patient states that she did not use the ENTERPRISE INTEGRATION DEVELOPER during the night and only used it once today so far. 11/20: When seen this afternoon the patient states that she is doing "pretty good." She says her back is sore. She reports that she has been off the ENTERPRISE INTEGRATION DEVELOPER pump since yesterday. There is no pain, numbness or tingling to the lower extremities. Nursing reports that the patient has had a bowel movement today. 11/21: Today the patient is doing good when seen. Her is visiting with her. She still says her back is sore. She does say she has some chronic numbness to the left anterior thigh otherwise she has no pain, numbness or tingling to the lower extremities. She went for CT scans of the thoracic and lumbar spines yesterday. This practitioner spoke with the Hospitalist earlier today who felt that the patient is able to be discharged from a medical standpoint. The patient was on her back when seen and it was reinforced that she needs to stay off it so that the surgical incision will heal better and not have pressure on it. 11/22: The patient is awake and watching TV in bed with her present. She states her back is really sore today due to the amount of walking that she did yesterday. She again is flat on her back and was instructed on the need to stay off the surgical incision, which she verbalised. She does have numbness to the left anterior thigh that is chronic per the patient. Otherwise she does not have any pain, numbness or tingling to the extremities. Her motor strength is normal and her surgical incision appeared to be dry when examined. Pt Condition on Discharge: Good Discharge Disposition: Disch w/ Home Health Serv Discharge Instructions DIET: Follow Instructions for: As Tolerated, No Restrictions ACTIVITIES You can perform: Full Weight Bearing Activities to Avoid: Lifting/Bending, Strenuous Activity, Bathing, Shower ADDITIONAL Activity Instructio: Wear the TLSO brace when out of bed. No lifting, bending, pushing, pulling or other strenuous activity. Additional Information When in bed avoid laying on the back and putting pressure on the surgical wound. Leave the dressing on over the surgical incisions for 1 week. After that you may take the outer dressing off but leave the steri-strips on and let them fall off on their own. No showering until the surgical incision is totally healed. Take the pain medication as prescribed. Avoid taking any medication that contains aspirin or NSAIDs (ibuprofen, naproxen , Motrin, Advil, Naprosyn), or any cholesterol medication for at least a month. Follow up in the office in 1 tp 2 weeks for a wound check. Horacio Rendon Nov 22, 2017 11:04
== END 2017-11-22 12:01 | disposition home health service (06) | DRG 453 ==
LOC: HSDI 05:47 → N03A 22:46 → N05A 11-16 20:05
PROVIDERS: ADMIT Neurological Surgery; ATTEND Neurological Surgery
PROC: 0SG00A0 Fusion of Lumbar Vertebral Joint with Interbody Fusion Device, Anterior Approach, Anterior Column, Open Approach (ICD-10-PCS; 2017-11-12)
PROC: 0RG7071 Fusion of 2 to 7 Thoracic Vertebral Joints with Autologous Tissue Substitute, Posterior Approach, Posterior Column, Open Approach (ICD-10-PCS; 2017-11-12)
PROC: 0RGA071 Fusion of Thoracolumbar Vertebral Joint with Autologous Tissue Substitute, Posterior Approach, Posterior Column, Open Approach (ICD-10-PCS; 2017-11-12)
PROC: 00NX0ZZ Release Thoracic Spinal Cord, Open Approach (ICD-10-PCS; 2017-11-12)
PROC: 30233N1 Transfusion of Nonautologous Red Blood Cells into Peripheral Vein, Percutaneous Approach (ICD-10-PCS; 2017-11-12)
PROC: 0SB20ZZ Excision of Lumbar Vertebral Disc, Open Approach (ICD-10-PCS; principal; 2017-11-12 08:34)
PROC: 0T9B70Z Drainage of Bladder with Drainage Device, Via Natural or Artificial Opening (ICD-10-PCS; 2017-11-14)
DX: M51.04 Intervertebral disc disorders with myelopathy, thoracic region (principal); J96.01 Acute respiratory failure with hypoxia; N17.0 Acute kidney failure with tubular necrosis; J18.9 Pneumonia, unspecified organism; R00.1 Bradycardia, unspecified; D62 Acute posthemorrhagic anemia; E87.1 Hypo-osmolality and hyponatremia; I48.0 Paroxysmal atrial fibrillation; N18.3 Chronic kidney disease, stage 3 (moderate); J44.0 Chronic obstructive pulmonary disease with (acute) lower respiratory infection; J44.1 Chronic obstructive pulmonary disease with (acute) exacerbation; M47.14 Other spondylosis with myelopathy, thoracic region; I12.9 Hypertensive chronic kidney disease with stage 1 through stage 4 chronic kidney disease, or unspecified chronic kidney disease; I95.81 Postprocedural hypotension; M48.04 Spinal stenosis, thoracic region; M51.36 Other intervertebral disc degeneration, lumbar region; M25.78 Osteophyte, vertebrae; I73.9 Peripheral vascular disease, unspecified; I25.10 Atherosclerotic heart disease of native coronary artery without angina pectoris; E78.5 Hyperlipidemia, unspecified; K21.9 Gastro-esophageal reflux disease without esophagitis; Z96.642 Presence of left artificial hip joint; Z87.891 Personal history of nicotine dependence; Z90.710 Acquired absence of both cervix and uterus; E66.9 Obesity, unspecified; E87.6 Hypokalemia; I08.1 Rheumatic disorders of both mitral and tricuspid valves; Y95 Nosocomial condition; R94.6 Abnormal results of thyroid function studies
CPT/HCPCS: 36430; 36600; 71010; 71020; 72070; 72128; 72131; 76000; 76775; 80048; 81001; 82805; 82948; 83605; 83735; 84100; 84155; 84439; 84443; 84481; 85025; 85027; 85610; 85730; 86850; 86900; 86901; 86920; 87040; 87086; 93005; 93306; 94150; 94640; 94664; C1713; C9290; J0131; J0690; J1100; J1170; J1200; J1265; J1580; J1644; J1885; J1940; J2175; J2270; J2370; J2405; J2543; J2930; J3010; J3480; J7030; J7040; J7050; J7120; L0200; L0484; P9016

== ENCOUNTER 2017-12-03 15:42 | Observation (INO) | payer MEDICARE ==
[~2017-12-03] VITALS: Ht 157.5 cm; Wt 89.0 kg
[~2017-12-03 15:42] MED LIST changes: -ASPI-516 CHEW; -ATOR20TA15 PO; +BISA10R RECTAL; -D 50CAP2 PO; +DILA2TAB4 PO; -GARL100T PO; +METH500T3 PO; -MILK500C2 PO; +PERI PO; -TURM500C7
[2017-12-03 16:03] VITALS: BP 120/64; PULSE 60; RESP 16; TEMP 98.3; O2SAT 95
[2017-12-03] MEDS ORDERED: SODIUM CHLOR 0.9% 1000 ML INJ 1,000 ML IV SCH (17:41)
[2017-12-03] MEDS ORDERED: MORPHINE SULFATE 2 MG/ML INJ IV PUSH ONE ×2 (17:45)
--- NOTE | 2017-12-03 17:53 | PD ---
HPI Chief Complaint: Back/ Neck Pain or Injury Time Seen by Provider: 17:21 Travel History International Travel<30 days: No Contact w/Intl Traveler<30days: No Traveled to known affect area: No History of Present Illness HPI 72-year-old female presents to emergency department complaining of left index finger pain that started when she woke up this morning. Patient does not know why her finger is painful. Denies trauma. Says it feels warm and swollen. Patient states that she is also having low back pain after her surgery 11/12. Patient states that she has home healthcare performing wound changes and assisting her throughout the home but is having more difficulty ambulating because of the pain. Says she called Dr. Francois's office who recommended she follow-up in the office today but she decided to come to the emergency department. Patient has been using her pain medications at home which include hydrocodone 5-325 but this is not reduced her pain. Patient denies fever or chills. Denies any changes in her pain but she decided to come here because she "cannot take her pain anymore". States she has not taken her anticoagulants as previously directed. PFSH Past Medical History Arthritis: Yes Asthma: No Autoimmune Disease: No Blood Disorders: No Anxiety: No Depression: No Heart Rhythm Problems: No Cancer: No Cardiovascular Problems: Yes (HEARTH CATH; HEART ABLATION 06/07; HX ATRIAL FIB) High Cholesterol: No Chemotherapy: No Chest Pain: No Congestive Heart Failure: No COPD: No Cerebrovascular Accident: No Diabetes: No Diminished Hearing: No Endocrine: No Gastrointestinal Disorders: Yes (GERD) GERD: Yes Glaucoma: No Genitourinary: No Headaches: No Hepatitis: No Hiatal Hernia: No Hypertension: Yes Immune Disorder: No Implanted Vascular Access Dvce: Yes Kidney Stones: No Musculoskeletal: Yes (ARTHRITIS; BACK SURGERY 1988, 2004) Neurologic: Yes (POSSIBLE NEUROPATHY FEET) Psychiatric: No Respiratory: Yes (SOB ON EXERTION) Myocardial Infarction: No Radiation Therapy: No Renal Failure: No Seizures: No Sickle Cell Disease: No Sleep Apnea: No Thyroid Disease: No Ulcer: No ?: Not Past Surgical History Abdominal Surgery: Yes (CHOLECYSTECTOMY) AICD: No Arteriovenous Shunt: No Body Medical Devices: METAL RODS IN BACK, LEFT HIP Cardiac Surgery: No Ear Surgery: No Endocrine Surgery: No Eye Surgery: No Genitourinary Surgery: Yes (BLADDER SLING) Gynecologic Surgery: Yes (HYSTERECTOMY) Insulin Pump: No Joint Replacement: Yes (L HIP) Neurologic Surgery: Yes (LUMBAR LAMINECTOMY X 2; FUSION ) Oral Surgery: No Pacemaker: No Thoracic Surgery: No Other Surgery: Yes Social History Alcohol Use: Yes (Occasionally) Tobacco Use: No Substance Use: No Allergies-Medications (Allergen,Severity, Reaction): Coded Allergies: adhesive (Unverified Allergy, Severe, Itching, 12/03/17) MILD REACTION Reported Meds & Prescriptions Reported Meds & Active Scripts Active Dilaudid (Hydromorphone HCl) 2 Mg Tab 2 Mg PO Q6H PRN Gnp Senna Plus 8.6-50 mg (Sennosides-Docusate Sodium) 8.6 Mg-50 Mg Tab 1 Tab PO BID Bisac-Evac Supp (Bisacodyl) 10 Mg Supp 10 Mg RECTAL DAILY Hydrocodone-Acetamin 5-325 mg (Hydrocodone/Acetaminophen) 5 Mg-325 Mg Tablet 1 Tab PO Q6HR PRN Methocarbamol 500 Mg Tab 500 Mg PO Q8H PRN Reported Lasix (Furosemide) 20 Mg Tab 10 Mg PO DAILY Multi Vitamin Daily (Multiple Vitamin) 1 Tab Tab 0.5 Tab PO BID Calcium 500 +D (Calcium Carbonate-Cholecalciferol) 500-400 Mg-Unit Tab 0.5 Tab PO BID Coq-10 Tr (Coenzyme Q10 (Ubidecarenone)) 100 Mg Cap 1 Cap PO DAILY Gabapentin 300 Mg Cap 300 Mg PO BID Pantoprazole (Pantoprazole Sodium) 40 Mg Tab 40 Mg PO DAILY Cartia Xt (Diltiazem ER 24 HR) 120 Mg Caper 180 Mg PO BID Review of Systems Except as stated in HPI: all other systems reviewed are Neg Physical Exam Narrative GENERAL: Well-nourished in mild distress SKIN: Focused skin assessment warm/dry. Left PIP- erythema and mild edema surrounding the joint, patient has good range of motion but with pain. No areas of fluctuance. HEAD: Atraumatic. Normocephalic. EYES: Pupils equal and round. No scleral icterus. No injection or drainage. ENT: No nasal bleeding or discharge. Mucous membranes pink and moist. NECK: Trachea midline. No JVD. CARDIOVASCULAR: Regular rate and rhythm. No murmur appreciated. RESPIRATORY: No accessory muscle use. Clear to auscultation. Breath sounds equal bilaterally. GASTROINTESTINAL: Abdomen soft, non-tender, nondistended. MUSCULOSKELETAL: No obvious deformities. No clubbing. No cyanosis. No edema. Back- dressing in place without exudate. midline, steristrips in place with mild erythema. No obvious dehiscence. LLE- good movement of leg without issue. Neurovascular intact RLE- difficulty with movement secondary to groin pain. (States her groin pain started 2 days after getting out of bed.) Mild TTP to groin region without point tenderness. NEUROLOGICAL: Awake and alert. No obvious cranial nerve deficits. Motor grossly within normal limits. Normal speech. PSYCHIATRIC: Appropriate mood and affect; insight and judgment normal. Data Data Last Documented VS Vital Signs Date Time Temp Pulse Resp B/P (MAP) Pulse Ox O2 Delivery O2 Flow Rate FiO2 12/03/17 20:24 85 16 106/57 (73) 98 Room Air 12/03/17 18:13 2.00 12/03/17 16:03 98.3 Orders Orders Complete Blood Count With Diff (12/03/17 17:41) Prothrombin Time / Inr (Pt) (12/03/17 17:41) Act Partial Throm Time (Ptt) (12/03/17 17:41) Urinalysis - C+S If Indicated (12/03/17 17:41) Sodium Chlor 0.9% 1000 Ml Inj (Ns 1000 M (12/03/17 17:41) Morphine Inj (Morphine Inj) (12/03/17 17:45) Morphine Inj (Morphine Inj) (12/03/17 17:45) Comprehensive Metabolic Panel (12/03/17 17:41) Finger ([place]) (12/03/17 ) Clindamycin Inj (Cleocin Inj) (12/03/17 18:15) Clindamycin Inj (Cleocin Inj) (12/03/17 19:15) Clindamycin 600 Mg/Ns Premix (Cleocin 60 (12/03/17 19:30) Admit Order (Ed Use Only) (12/03/17 20:42) Labs Laboratory Tests Test 12/03/17 17:50 12/03/17 18:50 White Blood Count 11.7 TH/MM3 Red Blood Count 3.43 MIL/MM3 Hemoglobin 10.2 GM/DL Hematocrit 30.2 % Mean Corpuscular Volume 88.1 FL Mean Corpuscular Hemoglobin 29.6 PG Mean Corpuscular Hemoglobin Concent 33.6 % Red Cell Distribution Width 16.7 % Platelet Count 679 TH/MM3 Mean Platelet Volume 8.7 FL Neutrophils (%) (Auto) 79.6 % Lymphocytes (%) (Auto) 7.9 % Monocytes (%) (Auto) 11.3 % Eosinophils (%) (Auto) 0.6 % Basophils (%) (Auto) 0.6 % Neutrophils # (Auto) 9.3 TH/MM3 Lymphocytes # (Auto) 0.9 TH/MM3 Monocytes # (Auto) 1.3 TH/MM3 Eosinophils # (Auto) 0.1 TH/MM3 Basophils # (Auto) 0.1 TH/MM3 CBC Comment DIFF FINAL Differential Comment Prothrombin Time 11.5 SEC Prothromb Time International Ratio 1.1 RATIO Activated Partial Thromboplast Time 41.6 SEC Blood Urea Nitrogen 52 MG/DL Creatinine 1.75 MG/DL Random Glucose 106 MG/DL Total Protein 6.9 GM/DL Albumin 2.0 GM/DL Calcium Level 8.7 MG/DL Alkaline Phosphatase 511 U/L Aspartate Amino Transf (AST/SGOT) 80 U/L Alanine Aminotransferase (ALT/SGPT) 46 U/L Total Bilirubin 0.6 MG/DL Sodium Level 130 MEQ/L Potassium Level 5.5 MEQ/L Chloride Level 97 MEQ/L Carbon Dioxide Level 24.7 MEQ/L Anion Gap 8 MEQ/L Estimat Glomerular Filtration Rate 29 ML/MIN Urine Color YELLOW Urine Turbidity CLEAR Urine pH 5.5 Urine Specific [place] 1.016 Urine Protein NEG mg/dL Urine Glucose (UA) NEG mg/dL Urine Ketones NEG mg/dL Urine Occult Blood NEG Urine Nitrite NEG Urine Bilirubin NEG Urine Urobilinogen LESS THAN 2.0 MG/DL Urine Leukocyte Esterase NEG Urine WBC 1 /hpf Urine Squamous Epithelial Cells 2 /hpf Urine Hyaline Casts 1 /lpf Microscopic Urinalysis Comment CATH-CULT NOT IND MDM Medical Decision Making Medical Screen Exam Complete: Yes Emergency Medical Condition: Yes Differential Diagnosis Left index finger cellulitis, erysipelas, septic arthritis, acute on chronic LBP Narrative Course 72-year-old female presents to emergency department complaining of left index finger pain that started when she woke up this morning. Patient does not know why her finger is painful. Denies trauma. Says it feels warm and swollen. Patient states that she is also having low back pain after her surgery 11/12. Patient states that she has home healthcare performing wound changes and assisting her throughout the home but is having more difficulty ambulating because of the pain. Says she called Dr. Francois's office who recommended she follow-up in the office today but she decided to come to the emergency department. Patient has been using her pain medications at home which include hydrocodone 5-325 but this is not reduced her pain. Patient denies fever or chills. Denies any changes in her pain but she decided to come here because she "cannot take her pain anymore". States she has not taken her anticoagulants as previously directed. Vital signs stable. Physical exam findings consistent with a right groin pain (strain vs hip abnormality), left index finger PIP cellulitis, mild dehydration with dry mucous membranes, back pain with difficulty moving about in bed Clindamycin 600mg administered in the ED for her likely cellulitis of the left finger. Left index finger PIP x-ray noted foreign bodies. No obvious portal of entry or foreign bodies noted upon examination. Laboratory Tests Test 12/03/17 17:50 12/03/17 18:50 White Blood Count 11.7 TH/MM3 Red Blood Count 3.43 MIL/MM3 Hemoglobin 10.2 GM/DL Hematocrit 30.2 % Mean Corpuscular Volume 88.1 FL Mean Corpuscular Hemoglobin 29.6 PG Mean Corpuscular Hemoglobin Concent 33.6 % Red Cell Distribution Width 16.7 % Platelet Count 679 TH/MM3 Mean Platelet Volume 8.7 FL Neutrophils (%) (Auto) 79.6 % Lymphocytes (%) (Auto) 7.9 % Monocytes (%) (Auto) 11.3 % Eosinophils (%) (Auto) 0.6 % Basophils (%) (Auto) 0.6 % Neutrophils # (Auto) 9.3 TH/MM3 Lymphocytes # (Auto) 0.9 TH/MM3 Monocytes # (Auto) 1.3 TH/MM3 Eosinophils # (Auto) 0.1 TH/MM3 Basophils # (Auto) 0.1 TH/MM3 CBC Comment DIFF FINAL Differential Comment Prothrombin Time 11.5 SEC Prothromb Time International Ratio 1.1 RATIO Activated Partial Thromboplast Time 41.6 SEC Blood Urea Nitrogen 52 MG/DL Creatinine 1.75 MG/DL Random Glucose 106 MG/DL Total Protein 6.9 GM/DL Albumin 2.0 GM/DL Calcium Level 8.7 MG/DL Alkaline Phosphatase 511 U/L Aspartate Amino Transf (AST/SGOT) 80 U/L Alanine Aminotransferase (ALT/SGPT) 46 U/L Total Bilirubin 0.6 MG/DL Sodium Level 130 MEQ/L Potassium Level 5.5 MEQ/L Chloride Level 97 MEQ/L Carbon Dioxide Level 24.7 MEQ/L Anion Gap 8 MEQ/L Estimat Glomerular Filtration Rate 29 ML/MIN Urine Color YELLOW Urine Turbidity CLEAR Urine pH 5.5 Urine Specific [place] 1.016 Urine Protein NEG mg/dL Urine Glucose (UA) NEG mg/dL Urine Ketones NEG mg/dL Urine Occult Blood NEG Urine Nitrite NEG Urine Bilirubin NEG Urine Urobilinogen LESS THAN 2.0 MG/DL Urine Leukocyte Esterase NEG Urine WBC 1 /hpf Urine Squamous Epithelial Cells 2 /hpf Urine Hyaline Casts 1 /lpf Microscopic Urinalysis Comment CATH-CULT NOT IND According to notes from Dr. Francois's office, patient was offered an appointment for tomorrow but she declined and preferred to keep her appointment for . I consulted Dr. Francois who evaluated the patient. Patient apparently complained more groin pain to him than the back pain. He stated that patient needed to go to a rehabilitation facility for more aggressive therapy. I was able to partake in the discussion between the patient Dr. Francois and patient admits to not performing ADLs as previously discussed. I suspect patient has significant deconditioning and muscle spasms. In addition, she likely has a groin strain after stepping out of bed a few days ago. She has had decreased oral intake and developed dehydration as evidenced by her kidney function. Patient will be admitted to obs with cellulitis, back pain, groin pain, muscular deconditioning, dehydration, and only slight abnormality. Hope to discharge her rehabilitation facility once stable. Thank you Dr. Villalpando for the assistance of this patient. Physician Communication Physician Communication I spoke with Dr. Francois and explained that he would come to evaluate her in the ED and determine the need for further medication or pain control. He says that the hematoma was found to several 27th but was unlikely to cause her subsequent issues. Diagnosis Primary Impression: Cellulitis of left index finger Additional Impressions: Back pain Qualified Codes: M54.5 - Low back pain; G89.29 - Other chronic pain Groin pain Qualified Codes: R10.31 - Right lower quadrant pain Muscular deconditioning Dehydration Electrolyte abnormality Admitting Information Admitting Physician Requests: Observation Referrals: Nolan Francois MD Condition: Stable Lina Chisholm Dec 03, 2017 17:53
[2017-12-03 18:12] VITALS: BP 114/57; PULSE 71; RESP 18; O2SAT 92
[2017-12-03] MEDS ORDERED: CLINDAMYCIN PHOS 600 MG/4 ML VIAL IM ONE (18:15)
--- NOTE | 2017-12-03 18:21 | RADRPT ---
EXAM DATE/TIME: 12/03/2017 18:00 [facility] COMPARISON: No previous studies available for comparison. INDICATIONS : Swelling in 2nd digit of left hand at distal portion of digit. MEDICAL HISTORY : None. SURGICAL HISTORY : None. ENCOUNTER: Initial ACUITY: 1 day PAIN SCORE: 5/10 LOCATION: Left 2nd digit FINDINGS: No fracture or subluxation seen of the left hand. There is mild osteoarthritis of the interphalangeal joints of the fingers and severe osteoarthritis of the first carpometacarpal joint. There is metacar pophalangeal osteoarthritis as well, moderate at the first and mild of the second through fifth. Possible tiny radiopaque debris radial aspect soft tissues of the pointer finger distally and marked on the images. Please correlate clinically. CONCLUSION: 1. No fracture, subluxation or other acute bony abnormality of the left hand. 2. Multifocal degenerative changes as above. 3. Potential tiny radiopaque foreign body in the distal/lateral soft tissues of the pointer finger. Michael Cleveland MD on December 03, 2017 at 18:17 Board Certified Radiologist. This report was verified electronically.
[2017-12-03 18:35] LABS: AUTOMATED NEUTROPHIL # 9.3 TH/MM3 (1.8-7.7); BASOPHIL # 0.1 TH/MM3 (0-0.2); BASOPHIL % 0.6 % (0.0-2.0); EOSINOPHIL # 0.1 TH/MM3 (0-0.4); EOSINOPHIL % 0.6 % (0.0-4.0); HEMATOCRIT 30.2 % (35.0-46.0); HEMOGLOBIN 10.2 GM/DL (11.6-15.3); LYMPH % 7.9 % (9.0-44.0); LYMPHOCYTE # 0.9 TH/MM3 (1.0-4.8); MEAN CELL VOLUME 88.1 FL (80.0-100.0); MEAN CORPUSCULAR HEMOGLOBIN 29.6 PG (27.0-34.0); MEAN CORPUSCULAR HGB CONC 33.6 % (32.0-36.0); MEAN PLATELET VOLUME 8.7 FL (7.0-11.0); MONO % 11.3 % (0.0-8.0); MONOCYTE # 1.3 TH/MM3 (0-0.9); NEUT % 79.6 % (16.0-70.0); PLATELET COUNT 679 TH/MM3 (150-450); RED BLOOD COUNT 3.43 MIL/MM3 (4.00-5.30); RED CELL DISTRIBUTION WIDTH 16.7 % (11.6-17.2); WHITE BLOOD COUNT 11.7 TH/MM3 (4.0-11.0)
[2017-12-03 18:48] LABS: INTERNATIONAL NORMALIZED RATIO 1.1 RATIO; PROTHROMBIN TIME - PATIENT 11.5 SEC (9.8-11.6)
[2017-12-03 18:57] LABS: ALT (GPT) 46 U/L (10-53); AST (GOT) 80 U/L (15-37); BICARBONATE 24.7 MEQ/L (21.0-32.0); BLOOD UREA NITROGEN 52 MG/DL (7-18); CALCIUM 8.7 MG/DL (8.5-10.1); CHLORIDE 97 MEQ/L (98-107); CREATININE 1.75 MG/DL (0.50-1.00); GLOMERULAR FILTRATION RATE 29 ML/MIN (>89); GLUCOSE,RANDOM 106 MG/DL (74-106); SODIUM (NA) 130 MEQ/L (136-145)
[2017-12-03 18:59] LABS: ALKALINE PHOSPHATASE 511 U/L (45-117); TOTAL BILIRUBIN ADULT 0.6 MG/DL (0.2-1.0); TOTAL PROTEIN 6.9 GM/DL (6.4-8.2)
[2017-12-03 19:11] LABS: BILIRUBIN, URINE NEG (NEG); BLOOD, URINE NEG (NEG); GLUCOSE,URINE NEG (NEG); HYALINE CAST, URINE 1 /lpf (RARE); KETONE, URINE NEG (NEG); NITRITE,URINE NEG (NEG); PH, URINE 5.5 (5.0-8.5); SQUAMOUS EPITHELIAL CELL URINE 2 /hpf (0-5); URINE COLOR YELLOW (YELLW/STRAW); URINE LEUKOCYTE ESTERASE NEG (NEG)
[2017-12-03] MEDS ORDERED: CLINDAMYCIN INJ 600 MG in SODIUM CHLORIDE 0.9% INJ 100 ML IV ONE (19:15)
[2017-12-03] MEDS ORDERED: CLINDAMYCIN 600 MG/NS PREMIX 50 ML IV ONE (19:30)
[2017-12-03 20:24] VITALS: BP 106/57; PULSE 85; RESP 16; O2SAT 98
[2017-12-03] MEDS ORDERED: ONDANSETRON HCL 4 MG/2 ML VIAL IV PUSH PRN (21:00)
--- NOTE | 2017-12-03 21:12 | HHI.HP ---
HPI Service [facility] Hospitalists Primary Care Physician Toribio Blevins MD Admission Diagnosis intractable pain, electrolyte abnormalities, TREVOR, dehydration Chief Complaint: Increasing pain and inability to ambulate, weakness, left finger pain, decreased PO intake Travel History International Travel<30 Days: No Contact w/Intl Traveler <30 Da: No Traveled to Known Affected Are: No History of Present Illness 72-year-old female 3 of COPD, A. fib status post ablation and recent thoracic and lumbar laminectomy with fusion surgery in October 2017 who presents to emergency department complaining of left index finger pain that started when she woke up this morning. Patient states that she is also having low back pain after her surgery 11/12. Patient states that she has home healthcare performing wound changes and assisting her throughout the home. Says she called Dr. Francois's office who recommended she follow-up in the office today but she decided to come to the emergency department since she was so painful. It appears the pain is actually more in the right hip and the left index finger and it is associated with her recent back surgery. She was evaluated by Dr. Francois and we discussed plan of care to best benefit patient given her inability to ambulate and increased weakness now. Patient denies fever or chills. Denies any changes in her pain but she decided to come here because she "cannot take her pain anymore". States she has not taken her anticoagulants as previously directed. Patient does not know why her finger is painful. Denies trauma or any type of bite. Review of Systems Constitutional: COMPLAINS OF: Fatigue, Change in appetite Ears, nose, mouth, throat: DENIES: Tinnitus, Hearing loss, Vertigo, Nasal discharge, Oral lesions, Throat pain, Hoarseness, Ear Pain, Running Nose, Epistaxis, Sinus Pain, Toothache, Odynophagia Respiratory: DENIES: Apneas, Cough, Wheezing, Hemoptysis, Sputum production, Shortness of breath Cardiovascular: DENIES: Chest pain, Palpitations, Syncope, Dyspnea on Exertion , PND, Lower Extremity Edema, Orthopnea, Claudication Gastrointestinal: COMPLAINS OF: Nausea, DENIES: Abdominal pain, Black stools, Bloody stools, BRB per rectum, Constipation, Diarrhea, GERD, Reflux, Vomiting, Difficulty Swallowing, Anorexia, See HPI Musculoskeletal: COMPLAINS OF: Joint pain, Joint Swelling, Back pain Hematologic/lymphatic: DENIES: Bruising, Lymphadenopathy Neurologic: COMPLAINS OF: Abnormal gait, Poor Balance Psychiatric: COMPLAINS OF: Anxiety Past Family Social History Past Medical History COPD Peripheral arterial disease Coronary artery disease Atrial fibrillation status post ablation Hypertension Dyslipidemia Chronic kidney disease Spinal stenosis Thoracic myelopathy GERD Past Surgical History Hysterectomy Left hip replacement Bilateral knee arthroscopy Atrial fibrillation ablation T11/12 laminectomy, L1/2 hemilaminectomy with fusion done in October 2017 Reported Medications Dilaudid (Hydromorphone HCl) 2 Mg Tab 2 Mg PO Q6H PRN Gnp Senna Plus 8.6-50 mg (Sennosides-Docusate Sodium) 8.6 Mg-50 Mg Tab 1 Tab PO BID Bisac-Evac Supp (Bisacodyl) 10 Mg Supp 10 Mg RECTAL DAILY Hydrocodone-Acetamin 5-325 mg (Hydrocodone/Acetaminophen) 5 Mg-325 Mg Tablet 1 Tab PO Q6HR PRN Methocarbamol 500 Mg Tab 500 Mg PO Q8H PRN Lasix (Furosemide) 20 Mg Tab 10 Mg PO DAILY Calcium 500 +D (Calcium Carbonate-Cholecalciferol) 500-400 Mg-Unit Tab 0.5 Tab PO BID Coq-10 Tr (Coenzyme Q10 (Ubidecarenone)) 100 Mg Cap 1 Cap PO DAILY Gabapentin 300 Mg Cap 300 Mg PO BID Pantoprazole (Pantoprazole Sodium) 40 Mg Tab 40 Mg PO DAILY Cartia Xt (Diltiazem ER 24 HR) 120 Mg Caper 180 Mg PO BID Allergies: Coded Allergies: adhesive (Unverified Allergy, Severe, Itching, 12/03/17) MILD REACTION Family History nc Social History No tobacco in 7 years but prior to that smoked 1 pack per day for approximately 45 years Hasn't drank any alcohol in a few weeks now but previously drank one to 2 drinks per week socially and lives with her 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 Alert but a bit confused about the date of her recent surgery as she reports it was August rather than October. SKIN: Left index finger with edema and mild erythema with tenderness to palpation of the PIP. HEAD: Atraumatic. Normocephalic. No temporal or scalp tenderness. EYES: Pupils equal round and reactive. Extraocular motions intact. No scleral icterus. No injection or drainage. ENT: Nose without bleeding, purulent drainage or septal hematoma. Airway patent. NECK: Trachea midline. No JVD or lymphadenopathy. Supple, nontender, no meningeal signs. CARDIOVASCULAR: Irregular rhythm without murmurs, gallops, or rubs. Distant heart sounds. RESPIRATORY: Clear to auscultation. Breath sounds equal bilaterally. No wheezes , rales, or rhonchi. GASTROINTESTINAL: Abdomen soft, non-tender, nondistended. No hepato-splenomegaly , or palpable masses. No guarding. MUSCULOSKELETAL: Extremities without clubbing, cyanosis, or edema. Left index finger as noted above. Positive FADIR test on the right. No external tenderness to palpation on hip exam otherwise. No calf tenderness. Postsurgical wound noted. NEUROLOGICAL: Awake and alert. Cranial nerves II through XII intact. Motor and sensory grossly within normal limits. Five out of 5 muscle strength in all muscle groups. Normal speech. Laboratory Laboratory Tests Test 12/03/17 17:50 12/03/17 18:50 White Blood Count 11.7 Red Blood Count 3.43 Hemoglobin 10.2 Hematocrit 30.2 Mean Corpuscular Volume 88.1 Mean Corpuscular Hemoglobin 29.6 Mean Corpuscular Hemoglobin Concent 33.6 Red Cell Distribution Width 16.7 Platelet Count 679 Mean Platelet Volume 8.7 Neutrophils (%) (Auto) 79.6 Lymphocytes (%) (Auto) 7.9 Monocytes (%) (Auto) 11.3 Eosinophils (%) (Auto) 0.6 Basophils (%) (Auto) 0.6 Neutrophils # (Auto) 9.3 Lymphocytes # (Auto) 0.9 Monocytes # (Auto) 1.3 Eosinophils # (Auto) 0.1 Basophils # (Auto) 0.1 CBC Comment DIFF FINAL Differential Comment Prothrombin Time 11.5 Prothromb Time International Ratio 1.1 Activated Partial Thromboplast Time 41.6 Blood Urea Nitrogen 52 Creatinine 1.75 Random Glucose 106 Total Protein 6.9 Albumin 2.0 Calcium Level 8.7 Alkaline Phosphatase 511 Aspartate Amino Transf (AST/SGOT) 80 Alanine Aminotransferase (ALT/SGPT) 46 Total Bilirubin 0.6 Sodium Level 130 Potassium Level 5.5 Chloride Level 97 Carbon Dioxide Level 24.7 Anion Gap 8 Estimat Glomerular Filtration Rate 29 Urine Color YELLOW Urine Turbidity CLEAR Urine pH 5.5 Urine Specific [place] 1.016 Urine Protein NEG Urine Glucose (UA) NEG Urine Ketones NEG Urine Occult Blood NEG Urine Nitrite NEG Urine Bilirubin NEG Urine Urobilinogen LESS THAN 2.0 Urine Leukocyte Esterase NEG Urine WBC 1 Urine Squamous Epithelial Cells 2 Urine Hyaline Casts 1 Microscopic Urinalysis Comment CATH-CULT NOT IND Result Diagram: 12/03/17174912/03/17 175 Imaging Last 72 hours Impressions Finger X-Ray 12/03/17 0000 Signed Impressions: Service Date/Time: Sunday, December 03, 2017 18:00 - CONCLUSION: 1. No fracture, subluxation or other acute bony abnormality of the left hand. 2. Multifocal degenerative changes as above. 3. Potential tiny radiopaque foreign body in the distal/lateral soft tissues of the pointer finger. Michael Cleveland MD Capcarmeni VTE Risk Assessment Caprini VTE Risk Assessment: Mod/High Risk (score >= 2) Caprini Risk Assessment Model Point Value = 1 Point Value = 2 Point Value = 3 Point Value = 5 Age 41-60 Minor surgery BMI > 25 kg/m2 Swollen legs Varicose veins or History of unexplained or recurrent spontaneous Oral contraceptives or hormone replacement Sepsis (< 1 month) Serious lung disease, including pneumonia (< 1 month) Abnormal pulmonary function Acute myocardial infarction Congestive heart failure (< 1 month) History of inflammatory bowel disease Medical patient at bed rest Age 61-74 Arthroscopic surgery Major open surgery (> 45 min) Laparoscopic surgery (> 45 min) Malignancy Confined to bed (> 72 hours) Immobilizing plaster cast Central venous access Age >= 75 History of VTE Family history of VTE Factor V Leiden Prothrombin [id number] Lupus anticoagulant Anticardiolipin antibodies Elevated serum homocysteine Heparin-induced thrombocytopenia Other congenital or acquired thrombophilia Stroke (< 1 month) Elective arthroplasty Hip, pelvis, or leg fracture Acute spinal cord injury (< 1 month) Prophylaxis Regimen Total Risk Factor Score Risk Level Prophylaxis Regimen 0-1 Low Early ambulation 2 Moderate Order ONE of the following: *Sequential Compression Device (SCD) *Heparin 5000 units SQ BID 3-4 Higher Order ONE of the following medications: *Heparin 5000 units SQ TID *Enoxaparin/Lovenox 40 mg SQ daily (WT < 150 kg, CrCl > 30 mL/min) *Enoxaparin/Lovenox 30 mg SQ daily (WT < 150 kg, CrCl > 10-29 mL/min) *Enoxaparin/Lovenox 30 mg SQ BID (WT < 150 kg, CrCl > 30 mL/min) AND/OR *Sequential Compression Device (SCD) 5 or more Highest Order ONE of the following medications: *Heparin 5000 units SQ TID (Preferred with Epidurals) *Enoxaparin/Lovenox 40 mg SQ daily (WT < 150 kg, CrCl > 30 mL/min) *Enoxaparin/Lovenox 30 mg SQ daily (WT < 150 kg, CrCl > 10-29 mL/min) *Enoxaparin/Lovenox 30 mg SQ BID (WT < 150 kg, CrCl > 30 mL/min) AND *Sequential Compression Device (SCD) Assessment and Plan Problem List: (1) Cellulitis of left index finger ICD Codes: L03.012 - Cellulitis of left finger Status: Acute Plan: Topete have some chronic underlying osteoarthritis. Unsure of etiology for topical cellulitic changes. We'll continue clindamycin. Patient does not appear toxic. (2) Groin pain ICD Codes: R10.30 - Lower abdominal pain, unspecified Status: Acute Plan: FADIR positive. Check x-ray of hip. Have PT see patient. Hopefully discharge to rehabilitation tomorrow. (3) Acute kidney injury superimposed on CKD ICD Codes: N17.9 - Acute kidney failure, unspecified; N18.9 - Chronic kidney disease, unspecified Status: Acute Plan: Provide gentle IV fluids given her prior history of hypoxemia. Recheck renal indices and electrolytes tomorrow a.m. (4) Electrolyte abnormality ICD Codes: E87.8 - Other disorders of electrolyte and fluid balance, not elsewhere classified Status: Acute Plan: Recheck tomorrow after IV fluid administration. (5) HTN (hypertension) ICD Codes: I10 - Essential (primary) hypertension Status: Chronic Plan: Hold medication for now given somewhat low blood pressure. (6) COPD (chronic obstructive pulmonary disease) ICD Codes: J44.9 - Chronic obstructive pulmonary disease, unspecified Status: Chronic Plan: Provide DuoNeb. Supplemental Oxygen as needed. (7) Atrial fibrillation ICD Codes: I48.91 - Unspecified atrial fibrillation Status: Acute Plan: Prior ablation. Not currently on anticoagulation period. Further management as outpatient. Code Status ull Discussed Condition With Pt and ER provider Problem Qualifiers (1) Groin pain: Qualified Codes: R10.31 - Right lower quadrant pain (2) HTN (hypertension): Qualified Codes: I10 - Essential (primary) hypertension (3) Atrial fibrillation: Qualified Codes: I48.2 - Chronic atrial fibrillation Aleksander Villalpando MD PhD Dec 03, 2017 21:12
[2017-12-03] MEDS ORDERED: RESP: ALBUTEROL 2.5 MG/IPRATROPIUM 0.5 MG NEB (PRN) NEB (21:15)
[2017-12-03] MEDS ORDERED: METHOCARBAMOL 500 MG TAB PO PRN (21:15)
--- NOTE | 2017-12-03 21:37 | RADRPT ---
EXAM DATE/TIME: 12/03/2017 21:05 [facility] COMPARISON: No previous studies available for comparison. INDICATIONS : Right sided groin pain. No prior trauma. MEDICAL HISTORY : Cardiovascular disease. Hypertension. SURGICAL HISTORY : Hysterectomy. ENCOUNTER: Initial ACUITY: 1 week PAIN SCORE: 10/10 LOCATION: Right hip. FINDINGS: There is no fracture of the right hip. There is increased density material in the lower portion of th e acetabulum and the acetabulum appears chronically widened. CONCLUSION: There is an apparent intra-articular mass widening the acetabulum. Right hip MRI with and without con trast recommended. No fracture is demonstrated. Michael Cleveland MD on December 03, 2017 at 21:30 Board Certified Radiologist. This report was verified electronically.
[2017-12-03] MEDS: MORPHINE SULFATE 2 MG/ML INJ IV PUSH PRN (23:31)
--- NOTE | 2017-12-03 23:48 | HHI.NSPN ---
History Chief Complaint: back pain, right groin pain Interval History 72-year-old female approximately 3 week status post a rather extensive thoracolumbar reconstructive procedure. She had a previous lumbar fusion, presented with significant kyphotic curvature, flat back syndrome with chronic progressive back pain. Also significant thoracic stenosis with myelopathy as well as lumbar stenosis above previous fusion site. She underwent thoracic and lumbar laminectomy, lumbar interbody fusion, thoracolumbar fusion and instrumentation. She declined initial inpatient rehabilitation, insisting on going home under the care of her family. She has had home physical therapy and home health nursing. She states that she was getting along relatively well until approximately 3 or 4 days ago when she developed rather severe right groin pain, which prevents her from walking. She states that her is being a bedpan to her. She cannot relate to the bathroom due to the right groin pain. She denies any significant falls or any injury to the leg. She does give a somewhat different history to the emergency room staff, initially indicating that it was mainly her left hand swelling that brought her to the emergency room, and complaining mainly of back pain rather than groin pain. She denies any fevers or chills. Exam Results Vital Signs Date Time Temp Pulse Resp B/P (MAP) Pulse Ox O2 Delivery O2 Flow Rate FiO2 12/03/17 21:36 12/03/17 20:24 85 16 98 Room Air 12/03/17 18:13 2.00 12/03/17 16:03 98.3 Intake and Output 12/03/17 12/03/17 12/04/17 08:00 16:00 00:00 Intake Total 1050 ml Balance 1050 ml Physical Examination General: Moderately obese lady. Somewhat anxious. Respirations: Clear to auscultation Cardiac: Regular without murmur Abdomen: Soft nontender Extremities: Moderate distal lower extremity edema without cyanosis. Posterior tibial pulses 1+ bilateral Musculoskeletal: No significant right or left lateral hip pain. She has some discomfort with adduction and internal rotation of the right hip, complaining of discomfort in the medial right groin.. Straight leg raise negative for hip pain or lower extremity radicular pain symptoms. She does complain of pain at the medial right groin with active abduction of the right lower extremity with some focal tenderness at the right pubic tubercle. Sensation intact to light touch in lower extremities Strength is within normal limits and lower extremities She has a new dressing on the incision. The incision is dry and intact per emergency room staff. Lab, Micro, Other Results 12/03/2017 hip x-ray results reviewed as noted: Hip X-Ray 12/03/17 0000 Signed Impressions: Service Date/Time: Sunday, December 03, 2017 21:05 - CONCLUSION: There is an apparent intra-articular mass widening the acetabulum. Right hip MRI with and without contrast recommended. No fracture is demonstrated. Michael Cleveland MD Finger X-Ray 12/03/17 0000 Signed Impressions: Service Date/Time: Sunday, December 03, 2017 18:00 - CONCLUSION: 1. No fracture, subluxation or other acute bony abnormality of the left hand. 2. Multifocal degenerative changes as above. 3. Potential tiny radiopaque foreign body in the distal/lateral soft tissues of the pointer finger. Michael Cleveland MD Medical Decision Making Impression and Plan Impression: 1. Stable neurologic exam following thoracolumbar decompression and fusion for thoracic myelopathy, lumbar stenosis. 2. Recent onset rather severe right groin pain. Initial x-ray findings noted above. Possible impingement syndrome. Possible adductor strain. 3. General failure to thrive. She has been mostly bedridden for the past few days at home. Plan: Findings were discussed with the patient. Discussed with Dr. Villalpando and emergency room staff in the emergency room. Patient being admitted for further evaluation of the right groin/hip pain. It is unlikely that she has an acute thoracolumbar radiculopathy contributing to her symptoms. She will likely need a course of inpatient rehabilitation. Possible further impingement imaging including MRI Nolan Francois MD Dec 03, 2017 23:48
[2017-12-04] MEDS: CLINDAMYCIN 300 MG/NS PREMIX 50 ML IV SCH ×4 (00:18→22:20)
[2017-12-04] MEDS: SODIUM CHLOR 0.9% 1000 ML INJ 1,000 ML IV SCH ×3 (00:18→22:19)
[2017-12-04 00:58] VITALS: BP 105/52; PULSE 71; RESP 20; TEMP 98.1; O2SAT 94
[2017-12-04] MEDS: MORPHINE SULFATE 2 MG/ML INJ IV PUSH PRN ×2 (04:19→22:19)
[2017-12-04 04:35] VITALS: BP 117/56; PULSE 80; RESP 24; TEMP 98.3; O2SAT 94
[2017-12-04] MEDS: CALCIUM/VITAMIN D 250 MG/125 U TAB PO SCH ×2 (07:57→22:19)
[2017-12-04] MEDS: PANTOPRAZOLE SOD 40 MG DELAYED RELEASE TAB PO SCH (07:57)
[2017-12-04] MEDS: GABAPENTIN 300 MG CAP PO SCH ×2 (07:57→22:20)
[2017-12-04 08:00] VITALS: BP 155/77; PULSE 77; RESP 18; TEMP 97.9; O2SAT 93
[2017-12-04 08:56] LABS: AUTOMATED NEUTROPHIL # 8.9 TH/MM3 (1.8-7.7); BASOPHIL % 0.3 % (0.0-2.0); EOSINOPHIL # 0.1 TH/MM3 (0-0.4); EOSINOPHIL % 0.7 % (0.0-4.0); HEMATOCRIT 29.8 % (35.0-46.0); HEMOGLOBIN 9.9 GM/DL (11.6-15.3); LYMPH % 7.8 % (9.0-44.0); LYMPHOCYTE # 0.9 TH/MM3 (1.0-4.8); MEAN CELL VOLUME 87.2 FL (80.0-100.0); MEAN CORPUSCULAR HEMOGLOBIN 29.1 PG (27.0-34.0); MEAN CORPUSCULAR HGB CONC 33.3 % (32.0-36.0); MONO % 10.6 % (0.0-8.0); MONOCYTE # 1.2 TH/MM3 (0-0.9); NEUT % 80.6 % (16.0-70.0); PLATELET COUNT 589 TH/MM3 (150-450); RED BLOOD COUNT 3.42 MIL/MM3 (4.00-5.30); RED CELL DISTRIBUTION WIDTH 16.8 % (11.6-17.2); WHITE BLOOD COUNT 11.1 TH/MM3 (4.0-11.0)
[2017-12-04 09:12] LABS: ALBUMIN 1.9 GM/DL (3.4-5.0); BICARBONATE 23.8 MEQ/L (21.0-32.0); BLOOD UREA NITROGEN 41 MG/DL (7-18); CALCIUM 8.8 MG/DL (8.5-10.1); CHLORIDE 101 MEQ/L (98-107); GLOMERULAR FILTRATION RATE 40 ML/MIN (>89); GLUCOSE,RANDOM 97 MG/DL (74-106); SODIUM (NA) 133 MEQ/L (136-145)
[2017-12-04 09:13] LABS: AST (GOT) 58 U/L (15-37)
[2017-12-04 09:16] LABS: ALKALINE PHOSPHATASE 493 U/L (45-117); ALT (GPT) 42 U/L (10-53); TOTAL BILIRUBIN ADULT 0.7 MG/DL (0.2-1.0); TOTAL PROTEIN 6.6 GM/DL (6.4-8.2)
[2017-12-04] MEDS ORDERED: SENNOSIDES 8.6 MG TAB PO PRN (10:30)
[2017-12-04] MEDS ORDERED: BISACODYL 10 MG SUPP RECTAL PRN (10:30)
[2017-12-04] MEDS ORDERED: MAGNESIUM HYDROXIDE SUSP 30 ML CUP PO PRN (10:30)
[2017-12-04] MEDS ORDERED: ALPRAZolam 0.5 MG TAB PO ONE (10:45)
--- NOTE | 2017-12-04 11:06 | HHI.PR ---
Subjective Remarks Pt reports continued pain in the left index finger and does not feel that the swelling is much improved yet She has had difficulty with getting nursing assistance to the bedside commode and cannot get out of bed on her own Her pain and neck pain is still quite significant Afebrile Objective Vitals Vital Signs Date Time Temp Pulse Resp B/P (MAP) Pulse Ox O2 Delivery O2 Flow Rate FiO2 12/04/17 08:00 97.9 77 18 155/77 (103) 93 12/04/17 06:15 Nasal Cannula 2.00 12/04/17 04:35 98.3 80 24 117/56 (76) 94 12/04/17 00:58 98.1 71 20 105/52 (69) 94 12/03/17 21:36 12/03/17 20:24 85 16 106/57 (73) 98 Room Air 12/03/17 18:13 Nasal Cannula 2.00 12/03/17 18:12 71 18 114/57 (76) 92 Room Air 12/03/17 16:03 98.3 60 16 120/64 (82) 95 Result Diagram: 12/04/17 0813 12/04/17 0813 Other Results Laboratory Tests Test 12/03/17 17:50 12/03/17 18:50 12/04/17 08:13 White Blood Count 11.7 TH/MM3 11.1 TH/MM3 Red Blood Count 3.43 MIL/MM3 3.42 MIL/MM3 Hemoglobin 10.2 GM/DL 9.9 GM/DL Hematocrit 30.2 % 29.8 % Mean Corpuscular Volume 88.1 FL 87.2 FL Mean Corpuscular Hemoglobin 29.6 PG 29.1 PG Mean Corpuscular Hemoglobin Concent 33.6 % 33.3 % Red Cell Distribution Width 16.7 % 16.8 % Platelet Count 679 TH/MM3 589 TH/MM3 Mean Platelet Volume 8.7 FL 8.0 FL Neutrophils (%) (Auto) 79.6 % 80.6 % Lymphocytes (%) (Auto) 7.9 % 7.8 % Monocytes (%) (Auto) 11.3 % 10.6 % Eosinophils (%) (Auto) 0.6 % 0.7 % Basophils (%) (Auto) 0.6 % 0.3 % Neutrophils # (Auto) 9.3 TH/MM3 8.9 TH/MM3 Lymphocytes # (Auto) 0.9 TH/MM3 0.9 TH/MM3 Monocytes # (Auto) 1.3 TH/MM3 1.2 TH/MM3 Eosinophils # (Auto) 0.1 TH/MM3 0.1 TH/MM3 Basophils # (Auto) 0.1 TH/MM3 0.0 TH/MM3 CBC Comment DIFF FINAL DIFF FINAL Differential Comment Prothrombin Time 11.5 SEC Prothromb Time International Ratio 1.1 RATIO Activated Partial Thromboplast Time 41.6 SEC Blood Urea Nitrogen 52 MG/DL 41 MG/DL Creatinine 1.75 MG/DL 1.30 MG/DL Random Glucose 106 MG/DL 97 MG/DL Total Protein 6.9 GM/DL 6.6 GM/DL Albumin 2.0 GM/DL 1.9 GM/DL Calcium Level 8.7 MG/DL 8.8 MG/DL Alkaline Phosphatase 511 U/L 493 U/L Aspartate Amino Transf (AST/SGOT) 80 U/L 58 U/L Alanine Aminotransferase (ALT/SGPT) 46 U/L 42 U/L Total Bilirubin 0.6 MG/DL 0.7 MG/DL Sodium Level 130 MEQ/L 133 MEQ/L Potassium Level 5.5 MEQ/L 4.9 MEQ/L Chloride Level 97 MEQ/L 101 MEQ/L Carbon Dioxide Level 24.7 MEQ/L 23.8 MEQ/L Anion Gap 8 MEQ/L 8 MEQ/L Estimat Glomerular Filtration Rate 29 ML/MIN 40 ML/MIN Urine Color YELLOW Urine Turbidity CLEAR Urine pH 5.5 Urine Specific [place] 1.016 Urine Protein NEG mg/dL Urine Glucose (UA) NEG mg/dL Urine Ketones NEG mg/dL Urine Occult Blood NEG Urine Nitrite NEG Urine Bilirubin NEG Urine Urobilinogen LESS THAN 2.0 MG/DL Urine Leukocyte Esterase NEG Urine WBC 1 /hpf Urine Squamous Epithelial Cells 2 /hpf Urine Hyaline Casts 1 /lpf Microscopic Urinalysis Comment CATH-CULT NOT IND Imaging Last Impressions Hip X-Ray 12/03/17 0000 Signed Impressions: Service Date/Time: Sunday, December 03, 2017 21:05 - CONCLUSION: There is an apparent intra-articular mass widening the acetabulum. Right hip MRI with and without contrast recommended. No fracture is demonstrated. Michael Cleveland MD Finger X-Ray 12/03/17 0000 Signed Impressions: Service Date/Time: Sunday, December 03, 2017 18:00 - CONCLUSION: 1. No fracture, subluxation or other acute bony abnormality of the left hand. 2. Multifocal degenerative changes as above. 3. Potential tiny radiopaque foreign body in the distal/lateral soft tissues of the pointer finger. Michael Cleveland MD Last 72 hours Impressions Finger X-Ray 12/03/17 0000 Signed Impressions: Service Date/Time: Sunday, December 03, 2017 18:00 - CONCLUSION: 1. No fracture, subluxation or other acute bony abnormality of the left hand. 2. Multifocal degenerative changes as above. 3. Potential tiny radiopaque foreign body in the distal/lateral soft tissues of the pointer finger. Michael Cleveland MD Objective Remarks General: Appears painful Chest: CTA Cardiac: Regular Abd: +BS, soft ND mildly tender in the lower abdomen Ext: Left hand index finger is swollen and erythematous at the PIP joint. No obvious streaking noted A/P Problem List: (1) Cellulitis of left index finger ICD Codes: L03.012 - Cellulitis of left finger Status: Acute Plan: - Pt is a 72 y/o female with CAD, Atrial fibrillation s/p previous ablation, Hypertension, Dyslipidemia, CKD ans spinal stenosis who [place] [facility] [place] after having undergone extensive thoracic and lumbar laminectomy, lumbar interbody fusion, thoracolumbar fusion and instrumentation with Dr. Francois - At discharge pot refused rehab placement. She reportedly was doing fairly well at home up until a few days ago. Left index finger cellulitis - Pt started having some increased pain, redness and swelling of the left hand index finger a few days ago. - XRay of the index finger in the ED noted no fracture, subluxation or other acute bony abnormality of the left hand. Multifocal degenerative changes. - Pt appears to have some chronic underlying osteoarthritis. - The etiology for topical cellulitic changes is unclear currently. - She was started on IV clindamycin at admission and we will continue this medication at this time. Patient does not appear toxic. s/p recent thoracolumbar decompression and fusion for thoracic myelopathy, lumbar stenosis. Right groin pain - Pt had a positive FADIR on examination at admission. Possible impingement syndrome - X-ray of right hip noted an apparent intra-articular mass widening the acetabulum. No fracture is demonstrated. - PT following - We will obtain an MRI of the right hip with and WO contrast - When pt is stable for discharge she will likely need placement at SNF - Dr. Francois is following. Acute on chronic kidney disease, stage 3 Hyperkalemia - Pts labs at admission noted elevated Cr 1.75/BUN 52 and GFR 29, likely due to poor oral intake prior to admission - Pt was given gentle IV fluids overnight with improvement in labs today to Cr 1/30/BUN 41, GFR 40. - Hyperkalemia improved with IVF - Recheck renal indices and electrolytes tomorrow HTN A. fib s/p previous ablation - Home medication held at admission as her BP was low - BP readings this morning are higher - Will resume her Cardizem CD 180mg po BID with parameters to hold for systolic BP less than 120 - Pt is not on any anticoagulation due to hx of GIB COPD - DuoNeb Q6H PRN. - Supplemental Oxygen as needed. (2) Groin pain ICD Codes: R10.30 - Lower abdominal pain, unspecified Status: Acute (3) Acute kidney injury superimposed on CKD ICD Codes: N17.9 - Acute kidney failure, unspecified; N18.9 - Chronic kidney disease, unspecified Status: Acute (4) Electrolyte abnormality ICD Codes: E87.8 - Other disorders of electrolyte and fluid balance, not elsewhere classified Status: Acute (5) HTN (hypertension) ICD Codes: I10 - Essential (primary) hypertension Status: Chronic (6) COPD (chronic obstructive pulmonary disease) ICD Codes: J44.9 - Chronic obstructive pulmonary disease, unspecified Status: Chronic (7) Atrial fibrillation ICD Codes: I48.91 - Unspecified atrial fibrillation Status: Acute Assessment and Plan Patient examined. Assessment and plan formulated with Hilary Whitney PA-C. I agree with the above. s/p laminectomy. ftt at home. not eating. dehydrated with some gaurav. c/o right hip pain but none today. mri hip due to ?mass per radiology cellulitis finger.?inflammatory arthritis. cont abx trial steroid Pt eval..I think pt will need snf again. ivf for dehydration. Problem Qualifiers (1) Groin pain: Qualified Codes: R10.31 - Right lower quadrant pain (2) HTN (hypertension): Qualified Codes: I10 - Essential (primary) hypertension (3) Atrial fibrillation: Qualified Codes: I48.2 - Chronic atrial fibrillation Hilary Whitney Dec 04, 2017 11:05 Marc Christine MD Dec 04, 2017 12:26
[2017-12-04] MEDS ORDERED: methylPREDNISolone SOD SUCC 125 MG/2 ML VIAL IV PUSH SCH (11:45)
[2017-12-04 12:00] VITALS: BP_SYST 140; BP_SYST 142; BP_DIAS 70; BP_DIAS 86; PULSE 106; PULSE 95; RESP 18; TEMP 98; TEMP 98.2; O2SAT 92; O2SAT 94
[2017-12-04] MEDS: DOCUSATE SODIUM 50 MG/SENNA 8.6 MG TAB PO SCH ×2 (12:18→22:20)
[2017-12-04] MEDS: methylPREDNISolone SOD SUCC 125 MG/2 ML VIAL IV PUSH SCH ×3 (12:20→22:19)
[2017-12-04] MEDS: DILTIAZEM-CD 180 MG CAP ER PO SCH ×2 (13:19→22:19)
--- NOTE | 2017-12-04 14:58 | RADRPT ---
EXAM DATE/TIME: 12/04/2017 14:15 [place] COMPARISON: HIP RIGHT (AP&LAT 2/3VWS) WO AP PELVIS, December 03, 2017, 21:05. INDICATIONS : Right hip pain. Abnormal x-ray. MEDICAL HISTORY : Peripheral vascular disease. Cerebrovascular disease. Hypertension. COPD. SURGICAL HISTORY : Hysterectomy. Fusion, thoracic. Fusion, lumbar. Left hip replacement. ENCOUNTER: Initial ACUITY: 2 day PAIN SCORE: 2/10 LOCATION: Right hip. TECHNIQUE: Multiplanar, multisequence MRI examination was performed without contrast. FINDINGS: There is 8 small joint effusion evident. I do not see evidence for an intra-articular mass. There is mild edema about the greater tuberosity and the pubic symphysis. Occult fracture is not appreciated. There are mild degenerative changes evident in the superior compartment of the acetabulum. CONCLUSION: Trace of joint effusion with mild degenerative changes. The mass is not appreciated. Inflammatory process cannot be entirely excluded. Correlation is suggested. Garo Mejia MD FACR on December 04, 2017 at 14:53 Board Certified Radiologist. This report was verified electronically.
[2017-12-04 16:49] VITALS: BP 134/71; PULSE 101; RESP 18; TEMP 97.9; O2SAT 95
[2017-12-04 21:44] VITALS: BP 141/90; PULSE 97; RESP 22; TEMP 97.5; O2SAT 94
[2017-12-05 00:56] VITALS: BP 137/75; PULSE 87; RESP 20; TEMP 97.5; O2SAT 93
[2017-12-05 04:26] VITALS: BP 130/87; PULSE 86; RESP 20; TEMP 97.5; O2SAT 95
[2017-12-05] MEDS: CLINDAMYCIN 300 MG/NS PREMIX 50 ML IV SCH ×2 (04:29→13:00)
[2017-12-05] MEDS: MORPHINE SULFATE 2 MG/ML INJ IV PUSH PRN (04:29)
[2017-12-05] MEDS: methylPREDNISolone SOD SUCC 125 MG/2 ML VIAL IV PUSH SCH ×2 (04:29→12:00)
[2017-12-05 07:59] LABS: AUTOMATED NEUTROPHIL # 6.9 TH/MM3 (1.8-7.7); HEMATOCRIT 28.8 % (35.0-46.0); HEMOGLOBIN 9.8 GM/DL (11.6-15.3); LYMPH % 5.8 % (9.0-44.0); LYMPHOCYTE # 0.4 TH/MM3 (1.0-4.8); MEAN CELL VOLUME 86.6 FL (80.0-100.0); MEAN CORPUSCULAR HEMOGLOBIN 29.5 PG (27.0-34.0); MEAN CORPUSCULAR HGB CONC 34.1 % (32.0-36.0); MEAN PLATELET VOLUME 8.2 FL (7.0-11.0); MONO % 3.6 % (0.0-8.0); MONOCYTE # 0.3 TH/MM3 (0-0.9); NEUT % 90.6 % (16.0-70.0); PLATELET COUNT 647 TH/MM3 (150-450); RED BLOOD COUNT 3.33 MIL/MM3 (4.00-5.30); RED CELL DISTRIBUTION WIDTH 16.2 % (11.6-17.2); WHITE BLOOD COUNT 7.6 TH/MM3 (4.0-11.0)
[2017-12-05 08:16] LABS: BICARBONATE 23.7 MEQ/L (21.0-32.0); CREATININE 0.87 MG/DL (0.50-1.00); MAGNESIUM 2.2 MG/DL (1.5-2.5)
[2017-12-05 08:34] VITALS: BP 127/63; PULSE 83; RESP 16; TEMP 97.5; O2SAT 96
--- NOTE | 2017-12-05 09:51 | HHI.PR ---
Subjective Remarks Pt overall feeling better today Her joint pain and swelling is improved She was able to get out of bed by herself for the most part and get to the bedside commode Pt had a BM this morning Objective Vitals Vital Signs Date Time Temp Pulse Resp B/P (MAP) Pulse Ox O2 Delivery O2 Flow Rate FiO2 12/05/17 08:34 97.5 83 16 127/63 (84) 96 12/05/17 04:26 97.5 86 20 130/87 (101) 95 12/05/17 00:56 97.5 87 20 137/75 (95) 93 12/04/17 21:44 97.5 97 22 141/90 (107) 94 12/04/17 16:49 97.9 101 18 134/71 (92) 95 12/04/17 12:00 98.0 106 18 140/86 (104) 94 12/04/17 12:00 98.2 95 18 142/70 (94) 92 Result Diagram: 12/05/17 0650 12/05/17 0650 Other Results Laboratory Tests Test 12/03/17 17:50 12/03/17 18:50 12/04/17 08:13 12/05/17 06:50 White Blood Count 11.7 TH/MM3 11.1 TH/MM3 7.6 TH/MM3 Red Blood Count 3.43 MIL/MM3 3.42 MIL/MM3 3.33 MIL/MM3 Hemoglobin 10.2 GM/DL 9.9 GM/DL 9.8 GM/DL Hematocrit 30.2 % 29.8 % 28.8 % Mean Corpuscular Volume 88.1 FL 87.2 FL 86.6 FL Mean Corpuscular Hemoglobin 29.6 PG 29.1 PG 29.5 PG Mean Corpuscular Hemoglobin Concent 33.6 % 33.3 % 34.1 % Red Cell Distribution Width 16.7 % 16.8 % 16.2 % Platelet Count 679 TH/MM3 589 TH/MM3 647 TH/MM3 Mean Platelet Volume 8.7 FL 8.0 FL 8.2 FL Neutrophils (%) (Auto) 79.6 % 80.6 % 90.6 % Lymphocytes (%) (Auto) 7.9 % 7.8 % 5.8 % Monocytes (%) (Auto) 11.3 % 10.6 % 3.6 % Eosinophils (%) (Auto) 0.6 % 0.7 % 0.0 % Basophils (%) (Auto) 0.6 % 0.3 % 0.0 % Neutrophils # (Auto) 9.3 TH/MM3 8.9 TH/MM3 6.9 TH/MM3 Lymphocytes # (Auto) 0.9 TH/MM3 0.9 TH/MM3 0.4 TH/MM3 Monocytes # (Auto) 1.3 TH/MM3 1.2 TH/MM3 0.3 TH/MM3 Eosinophils # (Auto) 0.1 TH/MM3 0.1 TH/MM3 0.0 TH/MM3 Basophils # (Auto) 0.1 TH/MM3 0.0 TH/MM3 0.0 TH/MM3 CBC Comment DIFF FINAL DIFF FINAL DIFF FINAL Differential Comment Prothrombin Time 11.5 SEC Prothromb Time International Ratio 1.1 RATIO Activated Partial Thromboplast Time 41.6 SEC Blood Urea Nitrogen 52 MG/DL 41 MG/DL 26 MG/DL Creatinine 1.75 MG/DL 1.30 MG/DL 0.87 MG/DL Random Glucose 106 MG/DL 97 MG/DL 147 MG/DL Total Protein 6.9 GM/DL 6.6 GM/DL Albumin 2.0 GM/DL 1.9 GM/DL Calcium Level 8.7 MG/DL 8.8 MG/DL 9.0 MG/DL Alkaline Phosphatase 511 U/L 493 U/L Aspartate Amino Transf (AST/SGOT) 80 U/L 58 U/L Alanine Aminotransferase (ALT/SGPT) 46 U/L 42 U/L Total Bilirubin 0.6 MG/DL 0.7 MG/DL Sodium Level 130 MEQ/L 133 MEQ/L 138 MEQ/L Potassium Level 5.5 MEQ/L 4.9 MEQ/L 3.8 MEQ/L Chloride Level 97 MEQ/L 101 MEQ/L 105 MEQ/L Carbon Dioxide Level 24.7 MEQ/L 23.8 MEQ/L 23.7 MEQ/L Anion Gap 8 MEQ/L 8 MEQ/L 9 MEQ/L Estimat Glomerular Filtration Rate 29 ML/MIN 40 ML/MIN 64 ML/MIN Urine Color YELLOW Urine Turbidity CLEAR Urine pH 5.5 Urine Specific [place] 1.016 Urine Protein NEG mg/dL Urine Glucose (UA) NEG mg/dL Urine Ketones NEG mg/dL Urine Occult Blood NEG Urine Nitrite NEG Urine Bilirubin NEG Urine Urobilinogen LESS THAN 2.0 MG/DL Urine Leukocyte Esterase NEG Urine WBC 1 /hpf Urine Squamous Epithelial Cells 2 /hpf Urine Hyaline Casts 1 /lpf Microscopic Urinalysis Comment CATH-CULT NOT IND Magnesium Level 2.2 MG/DL Imaging Last Impressions Hip MRI 12/04/17 0000 Signed Impressions: Service Date/Time: Monday, December 04, 2017 14:15 - CONCLUSION: Trace of joint effusion with mild degenerative changes. The mass is not appreciated. Inflammatory process cannot be entirely excluded. Correlation is suggested. Garo Mejia MD FACR Hip X-Ray 12/03/17 0000 Signed Impressions: Service Date/Time: Sunday, December 03, 2017 21:05 - CONCLUSION: There is an apparent intra-articular mass widening the acetabulum. Right hip MRI with and without contrast recommended. No fracture is demonstrated. Michael Cleveland MD Finger X-Ray 12/03/17 0000 Signed Impressions: Service Date/Time: Sunday, December 03, 2017 18:00 - CONCLUSION: 1. No fracture, subluxation or other acute bony abnormality of the left hand. 2. Multifocal degenerative changes as above. 3. Potential tiny radiopaque foreign body in the distal/lateral soft tissues of the pointer finger. Michael Cleveland MD Objective Remarks General: NAD, AAOx3, appears more comfortable today Chest: CTA Cardiac: Regular Abd: +BS, soft ND /NT Ext: The swelling in the left hand index finger is almost completely resolved. A/P Problem List: (1) Cellulitis of left index finger ICD Codes: L03.012 - Cellulitis of left finger Status: Acute Plan: - Pt is a 72 y/o female with CAD, Atrial fibrillation s/p previous ablation, Hypertension, Dyslipidemia, CKD ans spinal stenosis who was recently admitted [place] [facility] [place] 11/22/17 after having undergone extensive thoracic and lumbar laminectomy, lumbar interbody fusion, thoracolumbar fusion and instrumentation with Dr. Francois - At discharge pot refused rehab placement. She reportedly was doing fairly well at home up until a few days ago. Possible left index finger cellulitis - Pt started having some increased pain, redness and swelling of the left hand index finger a few days ago. - XRay of the index finger in the ED noted no fracture, subluxation or other acute bony abnormality of the left hand. Multifocal degenerative changes. - Pt appears to have some chronic underlying osteoarthritis. - The etiology for topical cellulitic changes is unclear currently. - She was started on IV clindamycin at admission and we will continue this medication at this time. Patient does not appear toxic. s/p recent thoracolumbar decompression and fusion for thoracic myelopathy, lumbar stenosis. Right groin pain - Pt had a positive FADIR on examination at admission. Possible impingement syndrome - X-ray of right hip noted an apparent intra-articular mass widening the acetabulum. No fracture is demonstrated. - PT following - MRI of the right hip with and WO contrast (12/04/16) --> Trace of joint effusion with mild degenerative changes. The mass is not appreciated. Inflammatory process cannot be entirely excluded. - Pt was given Solu-Medrol 60mg Q6H, started on 12/04, for seemingly inflammatory polyarthritis and pt is doing much better clinically today even her left index finger swelling and erythema is improved today. - Dr. Francois evaluated the pt and felt that she was stable neurologically from his surgical standpoint - PT to re-evaluate today to decide about HHC/PT vs SNF Acute on chronic kidney disease, stage 3 Hyperkalemia - Pts labs at admission noted elevated Cr 1.75/BUN 52 and GFR 29, likely due to poor oral intake prior to admission - Pt was given gentle IV fluids overnight with improvement in labs today to Cr 1/30/BUN 41, GFR 40. - Hyperkalemia improved with IVF - Renal indices and electrolytes have improved HTN A. fib s/p previous ablation - Home medication held at admission as her BP was low - BP readings are more stable this morning - Cont. Cardizem CD 180mg po BID with parameters to hold for systolic BP less than 120 - Pt is not on any anticoagulation due to hx of GIB COPD - DuoNeb Q6H PRN. - Supplemental Oxygen as needed. (2) Groin pain ICD Codes: R10.30 - Lower abdominal pain, unspecified Status: Acute (3) Acute kidney injury superimposed on CKD ICD Codes: N17.9 - Acute kidney failure, unspecified; N18.9 - Chronic kidney disease, unspecified Status: Acute (4) Electrolyte abnormality ICD Codes: E87.8 - Other disorders of electrolyte and fluid balance, not elsewhere classified Status: Acute (5) HTN (hypertension) ICD Codes: I10 - Essential (primary) hypertension Status: Chronic (6) COPD (chronic obstructive pulmonary disease) ICD Codes: J44.9 - Chronic obstructive pulmonary disease, unspecified Status: Chronic (7) Atrial fibrillation ICD Codes: I48.91 - Unspecified atrial fibrillation Status: Acute Assessment and Plan Patient examined. Assessment and plan formulated with Hilary Whitney PA-C. I agree with the above. s/p laminectomy. ftt at home. not eating. dehydrated with some gaurav. c/o right hip pain mri negative for mass cellulitis finger.?inflammatory arthritis. much improved after steroid trial d/c with steroid taper. complete abx hhc/pt. discussed with Problem Qualifiers (1) Groin pain: Qualified Codes: R10.31 - Right lower quadrant pain (2) HTN (hypertension): Qualified Codes: I10 - Essential (primary) hypertension (3) Atrial fibrillation: Qualified Codes: I48.2 - Chronic atrial fibrillation Hilary Whitney Dec 05, 2017 09:51 Marc Christine MD Dec 05, 2017 13:18
[2017-12-05] MEDS ORDERED: PRED10 PO ×2 (10:20→10:21)
[2017-12-05] MEDS: GABAPENTIN 300 MG CAP PO SCH (10:29)
[2017-12-05] MEDS: DOCUSATE SODIUM 50 MG/SENNA 8.6 MG TAB PO SCH (10:29)
[2017-12-05] MEDS: PANTOPRAZOLE SOD 40 MG DELAYED RELEASE TAB PO SCH (10:29)
[2017-12-05] MEDS: CALCIUM/VITAMIN D 250 MG/125 U TAB PO SCH (10:29)
[2017-12-05] MEDS: DILTIAZEM-CD 180 MG CAP ER PO SCH (10:29)
[2017-12-05] MEDS: SODIUM CHLOR 0.9% 1000 ML INJ 1,000 ML IV SCH (10:30)
[2017-12-05 11:57] VITALS: BP 137/78; PULSE 80; RESP 16; TEMP 97.6; O2SAT 98
--- NOTE | 2017-12-05 12:41 | HHI.FF ---
Face to Face Verification Diagnosis: (1) Status post laminectomy with spinal fusion (2) Cellulitis of left index finger (3) Inflammatory polyarthritis (4) Groin pain (5) Dehydration (6) Electrolyte abnormality (7) Acute kidney injury superimposed on CKD (8) HTN (hypertension) (9) Atrial fibrillation (10) COPD (chronic obstructive pulmonary disease) Physical Therapy Order: Evaluate and Treat, Improve ambulation, Strength and gait training Occupational Therapy Order: Evaluate and Treat, Improve ADL Home Health Nursing Order: Signs/symptoms of disease process Nursing assessment with vital signs I have seen patient Alcira Solis on 12/05/17. My clinical findings support the need for the requested home health care services because: Deconditioned w/ increased weakness I certify that my clinical findings support that this patient is homebound because: Post-op weakness Unsteady gait/balance Hilary Whitney Dec 05, 2017 12:41
[2017-12-05] MEDS ORDERED: CLIN300C5 PO (12:44)
== END 2017-12-05 14:53 | disposition home or self-care (01) ==
LOC: NEPC 15:42 → NEDA 20:45 → NEPGCP 21:32
PROVIDERS: ADMIT Hospitalist; ATTEND Hospitalist
DX: L03.012 Cellulitis of left finger (principal); R10.31 Right lower quadrant pain; N17.9 Acute kidney failure, unspecified; E87.8 Other disorders of electrolyte and fluid balance, not elsewhere classified; J44.9 Chronic obstructive pulmonary disease, unspecified; I48.2 Chronic atrial fibrillation; M54.5 Low back pain; R53.83 Other fatigue; I25.10 Atherosclerotic heart disease of native coronary artery without angina pectoris; K21.9 Gastro-esophageal reflux disease without esophagitis; M48.00 Spinal stenosis, site unspecified; I73.9 Peripheral vascular disease, unspecified; M79.89 Other specified soft tissue disorders; R26.2 Difficulty in walking, not elsewhere classified; E86.0 Dehydration; M48.061 Spinal stenosis, lumbar region without neurogenic claudication; G95.9 Disease of spinal cord, unspecified; R62.7 Adult failure to thrive; E78.5 Hyperlipidemia, unspecified; I12.9 Hypertensive chronic kidney disease with stage 1 through stage 4 chronic kidney disease, or unspecified chronic kidney disease; N18.3 Chronic kidney disease, stage 3 (moderate); M06.4 Inflammatory polyarthropathy; E87.5 Hyperkalemia; M25.551 Pain in right hip; M19.90 Unspecified osteoarthritis, unspecified site; Z96.642 Presence of left artificial hip joint; Z98.1 Arthrodesis status; Z79.899 Other long term (current) drug therapy; Z87.891 Personal history of nicotine dependence
CPT/HCPCS: 73140; 73502; 73721; 80048; 80053; 81001; 83735; 85025; 85610; 85730; 96361; 96374; 96375; 96376; 97162; 97530; 99285; G0378; G8987; G8988; J2270; J2930; J7030